=== PATIENT | female | born 1945 | race Caucasian/White ===

== ENCOUNTER → 2017-10-13 12:00 | Outpatient (CLI) | payer OTHER, SELFPAY ==
[2017-10-13 13:28] LABS: Vitamin D,25 Hydroxy 29.3 ng/mL (29.95-100.01)
[2017-10-13 13:34] LABS: Cholesterol 200 mg/dL (200); High Density Lipoprotein 49 mg/dL; Thyroid Stim Hormone (TSH) 0.06 uIU/mL (0.358-3.74); Triglycerides 118 mg/dL; Very Low Density Lipoprotein 24 mg/dL (5-40)
== END ==
PROVIDERS: Family Provider Family Medicine; PCP Family Medicine; Visit Provider Family Medicine
DX: E03.9 Hypothyroidism, unspecified (principal); E78.2 Mixed hyperlipidemia; E55.9 Vitamin D deficiency, unspecified
CPT/HCPCS: 36415; 80061; 82306; 84443

== ENCOUNTER 2017-10-16 12:30 | Outpatient (RCR) | payer OTHER, SELFPAY ==
--- NOTE | 2017-09-20 14:12 | HP.PTEVAL_ITS ---
Patient's Visit Information RADHA ROMANO is a 72 year old F referred to Physical Therapy by DO MIKE Lan with a diagnosis of DISLOCATION OF LEFT ACROMIOCLAVICLE JOINT. Date of Evaluation: 09/20/17 Physical Therapist: Rambo Frederick PT, - Visit Plan Frequency: 3x /Week Duration: 4 Weeks Plan: AVOID FLEXION ABOVE 90 DEGREES PRECATION AC. RTC /SCAPULAR STRENGTHENING ,POSTURAL EX'S ,MODALITIES - Subjective Subjective: This 72 y/o female presents to physical therapy with discloaction of left AC joint. Patient injuried left shoulder slipping on step hitting door jam. Attempted to work but caused pain then Monday ER at [facility] ,x-rays . Then seen DR Glynn recommended PT. Patient pain affects ADL'S ,self hygine and housework tasks above 90 degrees.Pain affects ablity to return to work and quality of life. Pain located lateral deltoid AC joint. Denies parathesia/ tingling. Patient has been able to sleep. VOCATION: [employer]. SOCIAL: - Pain Left Shoulder Pain Intensity (Out of 10): 5 Pain Intensity Range: 10 - Objective POSTURE: rounded shoulders head foward. PALAPTION: tender AC. NEURO: denies parathesai/tingling,reflexes C5-6-7. AROM: shoulder flexion 115 degrees pain, 130 degrees,ER 80 degrees pain,IR 50 degrees pain. PROM: shoulder flexion/abd 150 supine. SCAPULAR -HUMERAL FUNCTION : 1:1. MMT: RTC 4-/5 ,deltoid 3+/5 pain. FUNCTIONAL TEST: pain reaching behind back - Special Tests R Shoulder Drop Sign - IS Test: Negative R Shoulder Neer - Impingement: Positive R Shoulder Rowland Cody - Impingement: Positive R Shoulder AC Resisted - AC: Positive R Shoulder Shrug Sign - OA/Adhesive Capsulitis: Negative - Goals Goal 1:: Independant with HEP Goal Time Frame: 4-6 Weeks Goal 2:: Patient decrease pain left shoulder by 60% or greater to improve function Goal Time Frame: 4-6 Weeks Goal 3:: Patient increase AROM shoulder flexion /abd 150 degrees and ER 90 to improve function above 90 degrees for ADL'S and job demnads Goal Time Frame: 4-6 Weeks Goal 4:: Patient increase strength left shoulder 4/5 to improve function with ADL'S and return to job demands. Goal Time Frame: 4-6 Weeks Goal 5:: Patient be able to perform ADL'S ,housework tasks and RTW with min to no limitations Goal Time Frame: 4-6 Weeks - Rehabilitation Potential Physical Therapy Diagnosis: This patient has left shoulder AC joint dislocation with pain ,ROM loss ,strength thus impairs function and ADL'S and RTW thus benifit from skilled PT Rehabilitation Potential: Good - Anticipated Interventions Patient/Client Instruction: Educate patient on: Condition, Plan of Care For the Purpose of:: To decrease pain, To increase ROM, To improve muscle performance and motor function, To improve ability to perform ADL's, To increase tolerance to activity/condition/position, To improve performance and independence with ADL's, To improve ability of physical actions for home/ community/work/leisure, To improve health of tissue, To decrease soft tissue restriction, To increase flexibility/ROM, To assume or resume ADL's, To improve health and function, To improve ability to perform tasks related to life management Therapeutic Exercise to Include: Strength training, Postural training, Active ROM, Scapular Strength/Stabilization Comment: RTC For the Purpose of:: To decrease pain, To increase ROM, To improve muscle performance and motor function, To improve ability to perform ADL's, To increase tolerance to activity/condition/position, To improve performance and independence with ADL's, To improve ability of physical actions for home/ community/work/leisure, To improve health of tissue, To decrease soft tissue restriction, To improve ability to perform tasks related to life management IF ES: Yes Cryotherapy (ice pack, ice massage): Yes Thermo therapy (hot pack): Yes Ultrasound (thermal/non thermal): Yes For the Purpose of:: To decrease pain, To increase ROM, To improve nutrient delivery to tissue, To increase oxygenation perfusion, To improve health of tissue, To decrease soft tissue restriction Thank you for the opportunity to evaluate your patient. For Medicare and Medicare HMO plans, please review the plan of care and approve it. It will need to be FAXED BACK to us at [phone] for Medicare purposes. Please let me know if there are questions or concerns regarding this plan of care. Physician Signature: Date:
--- NOTE | 2017-10-19 11:29 | HP.PTDCSUM_ITS ---
HP - PT D/C Summary It has been my pleasure to treat RADHA ROMANO under orders from Chong Glynn DO, for the diagnosis of DISLOCATION OF LEFT ACROMIOCLAVICLE JOINT for a total of 13 visit(s). Discharge Date: Please see the following information for a summary of their discharge status. - Subjective Subjective: Patient doing ready to RTW. NO PAIN. ABLE TO DO ALL ADLS' ACTIVITIES - Pain Left Shoulder Pain Intensity (Out of 10): 0 - Overall Improvement % Improvement: 100 - Objective Objective/Function: POSTURE: mild foward posture. NEURO: denies parathesia/ tingling. AROM: flexion 160 ,abd 160,ER 90 ,IR 75. MMT: 4/5 RTC ,DELTOID 4-/ 5. FUNCTIONAL TEST : WNL - Goals Goal 1:: Independant with HEP Goal Progress: Goal Met Goal 2:: Patient decrease pain left shoulder by 60% or greater to improve function Goal Progress: Goal Met Goal 3:: Patient increase AROM shoulder flexion /abd 150 degrees and ER 90 to improve function above 90 degrees for ADL'S and job demnads Goal Progress: Goal Met Goal 4:: Patient increase strength left shoulder 4/5 to improve function with ADL'S and return to job demands. Goal Progress: Goal Met Goal 5:: Patient be able to perform ADL'S ,housework tasks and RTW with min to no limitations Goal Progress: Goal Met - Plan Plan: D/C MET GOALS. RTW - D/C Information If there are questions or concerns regarding this patient's physical therapy, please feel free to call me at [phone]. Thank you for the referral of this patient. Sincerely, Rambo Frederick, PT,
== END 2017-10-16 19:00 | disposition home or self-care (01) ==
LOC: PT 12:30
PROVIDERS: Family Provider Family Medicine; PCP Family Medicine; Visit Provider Orthopaedic Surgery
DX: S43.102D Unspecified dislocation of left acromioclavicular joint, subsequent encounter (principal)
CPT/HCPCS: 97014; 97035; 97110; 97162; G0283

== ENCOUNTER → 2018-01-08 14:26 | Outpatient (CLI) | payer OTHER, SELFPAY ==
--- NOTE | 2018-01-08 14:26 | DT_ITS ---
This patient was seen during an EMR downtime January 01, 2018 - January 08, 2018. This patient may have a combination of paper and electronic documentation or all paper documentation. All documentation is viewable within the e-chart portion of [employer] for each patient visit.
--- NOTE | 2018-01-08 14:54 | ECHOCS_ITS ---
Reason For Study: CHEST DISCOMFORT Procedure This was a 2D Doppler, Color Flow transthoracic echocardiogram. Contrast injection was performed. Exam performed in department. Left Ventricle Normal LV size. Left ventricular systolic function is normal. The estimated ejection fraction is 65 %. Transmitral and pulmonary venous doppler flow suggestive of impaired relaxation of left ventricle. No regional wall motion abnormalities noted. Right Ventricle Normal RV size. Normal systolic function. Atria Normal left atrium. Normal right atrium. Mitral Valve Normal mitral valve. Tricuspid Valve Normal tricuspid valve. Mild (1+) tricuspid valve insufficiency. Pulmonary artery systolic pressure is 34 mmHg. Aortic Valve Trisinus/trileaflet aortic valve. Pulmonic Valve Normal pulmonic valve. Great Vessels Normal aortic root. The pulmonary artery is normal size. Normal inferior vena cava. Pericardium/Pleural No pericardial effusion. Medication 22 gauge I.V. with prn adaptor inserted into left arm. Diluted definity 3ml given slow IV push to enhance endocardial definition. MMode/2D Measurements & Calculations LVIDd: 4.4 cm IVSd: 0.86 cm Ao root diam: 3.2 cm LVIDs: 3.2 cm LVPWd: 0.76 cm LA dimension: 4.9 cm RVDd: 3.7 cm FS: 27.7 % LAV(MOD-bp): 50.6 ml EDV(MOD-sp4): 77.6 ml EDV(MOD-sp2): 50.6 ml LAV(MOD-bp) Indexed: 23.5 ml/m2 ESV(MOD-sp4): 22.3 ml EF(MOD-sp2): 41.3 % LAV(MOD-sp2): 57.1 ml EF(MOD-sp4): 71.3 % LAV(MOD-sp4): 44.8 ml SV(MOD-sp4): 55.3 ml SV(MOD-sp2): 20.9 ml LA A4 area: 17.9 cm2 RA A4 area: 17.8 cm2 Doppler Measurements & Calculations MV E max ifeanyi: 68.3 cm/sec Lat Peak E' Ifeanyi: 10.6 cm/sec Med Peak E' Ifeanyi: 5.4 cm/sec E/E' lat: 6.4 E/E' med: 12.7 Ao V2 max: 155.1 cm/sec LV V1 max: 147.7 cm/sec TR max ifeanyi: 280.4 cm/sec Ao max P.6 mmHg LV V1 max P.7 mmHg TR max P.5 mmHg Interpretation Summary Normal LV size. Left ventricular systolic function is normal. The estimated ejection fraction is 65 %. Transmitral and pulmonary venous doppler flow suggestive of impaired relaxation of left ventricle Contrast injection was performed. Ordering Physician: KM Mott Referring Physician: FRANCIS BOTELLO Performed By: Sandra Deutsch RDCS, RVT
[2018-01-08 15:55] LABS: Anion Gap 7 (5-15); BUN 22 mg/dL (7-18); BUN/Creat Ratio 18.6 RATIO (10-20); Calcium,Total 8.6 mg/dL (8.5-10.1); Chloride 103 mmol/L (98-107); Creatinine, Serum 1.18 mg/dL (0.55-1.02); EST Glomerular Filtration Rate 48 mL/min (>60); Est Glom Filt Rate - Afr Amer 58 mL/min (>60); Glucose 102 mg/dL (74-106); Potassium 3.6 mmol/L (3.5-5.1); Sodium Level 143 mmol/L (136-145); Thyroid Stim Hormone (TSH) 0.15 uIU/mL (0.358-3.74)
== END ==
PROVIDERS: Family Provider Family Medicine; PCP Family Medicine; Visit Provider Nurse Practitioner Family
DX: R07.89 Other chest pain (principal); M79.89 Other specified soft tissue disorders; R06.09 Other forms of dyspnea; E03.9 Hypothyroidism, unspecified; R03.0 Elevated blood-pressure reading, without diagnosis of hypertension
CPT/HCPCS: 36415; 80048; 84443; 93306; Q9957; A4216; C8929

== ENCOUNTER → 2018-03-08 06:17 | Outpatient (CLI) | payer OTHER, SELFPAY ==
--- NOTE | 2018-03-08 06:19 | CDU_ITS ---
Reason For Study: Carotid bruit Rt. Velocities/BP Lt. Velocities/BP Prox CCA 66.3/17.6 cm/sec. Prox CCA 70.4/18.2 cm/sec. Mid CCA 67.4/16.4 cm/sec. Mid CCA 66.3/19.3 cm/sec. Dist CCA 61.6/15.2 cm/sec. Dist CCA 68.6/18.8 cm/sec. Prox ICA 57.5/17.6 cm/sec. Prox ICA 66.8/18.8 cm/sec. Mid ICA 77.4/24.0 cm/sec. Mid ICA 83.3/26.4 cm/sec. Dist ICA 106.0/28.1 cm/sec. Dist ICA 86.8/27.6 cm/sec. Rt. ICA/CCA = 1.6. Lt. ICA/CCA = 1.3. Prox ECA 68.0/11.7 cm/sec. Prox ECA 63.3/8.2 cm/sec. Rt. Vert. 45.7/14.7 cm/sec. Lt. Vert. 63.3/12.3 cm/sec. Right Extracranial There is intimal thickening but no significant atherosclerotic plaque noted in the right common carotid artery. There is heterogeneous, irregular atherosclerotic plaque noted in the right internal carotid artery. There is no significant atherosclerotic plaque noted in the right external carotid artery. Antegrade flow is noted in the right vertebral artery. Left Extracranial There is intimal thickening but no significant atherosclerotic plaque noted in the left common carotid artery. There is homogeneous, smooth atherosclerotic plaque noted in the left internal carotid artery. There is no significant atherosclerotic plaque noted in the left external carotid artery. Antegrade flow is noted in the left vertebral artery. Procedure Carotid Duplex 41457. Exam performed in department. Interpretation Summary Minimal plague at the proximal bilateral internal carotids with <50% stenosis. Normal flow bilateral external carotids Patent and antegrade bilateral vertebrals Ordering Physician: Robby Blanco Referring Physician: MD Dipti Jerel Performed By: Hyacinth Melgar RVT
--- NOTE | 2018-03-08 12:23 | STRESSREP ---
Stress Test Report Date: 03/08/2018 Procedure: Pharmacologic stress nuclear imaging study Indications: Shortness of breath/dyspnea Consent: Per the patient Procedure: The patient underwent pharmacologic (Regadenoson) evaluation with a peak heart rate of 97 beats per minute (65 predicted maximal heart rate) and a peak blood pressure of 138/78 mmHg. The baseline ECG demonstrated normal sinus rhythm. The peak pharmacologic ECG demonstrated no obvious ECG. There were no cardiac dysrhythmias pretest, during pharmacologic infusion, or recovery. There was no complaint of chest discomfort during pharmacologic infusion or recovery. The examination was discontinued secondary to completion of protocol. Impression: 1. Pharmacologic (Regadenoson) evaluation 2. Peak pharmacologic ECG with no obvious ECG changes. 3. There were no cardiac dysrhythmias pretest, during pharmacologic infusion, or recovery 4. Nuclear images pending Myocardial perfusion imaging study: Technique: The patient was injected with 15 millicuries of technetium 99m Cardiolite and subsequently rest SPECT Cardiolite nuclear imaging was obtained in the horizontal long, vertical long, and short axis views. The patient underwent pharmacologic (Regadenoson) evaluation with a peak heart rate of 97 beats per minute (65 % percent predicted maximal heart rate) and a peak blood pressure of 138/78 mmHg. The patient was injected with 45 millicuries of technetium 99m Cardiolite and subsequently stress SPECT Cardiolite nuclear imaging was obtained in the horizontal long, vertical long, and short axis views. A gated Cardiolite study at peak stress was obtained. Interpretation: Rest and stress SPECT Cardiolite nuclear imaging status post realignment, normalization, and attenuation correction demonstrate a small area of subtle diminished tracer uptake near the apical segment without significant change between rest and stress appearing compatible with physiologic apical thinning. There is end systolic thickening and brightening. The gated Cardiolite study demonstrates myocardial thickening and inward wall motion. The reported LVEF is 75 %. Impression: 1. And stress SPECT Cardiolite nuclear imaging demonstrate a small area of subtle decreased tracer uptake near the apical segments without significant change between rest and stress appearing compatible with physiologic apical thinning with no myocardial perfusion changes consider diagnostic for associated stress-induced myocardial ischemia or previous myocardial injury/infarction. 2. The gated Cardiolite study reports an LVEF of 75 %. This note was generated with [employer] software. It may contain incorrect words, spelling, and punctuation that were not noted in checking the note before signing.
--- NOTE | 2018-03-08 12:26 | STRESSREP_ITS ---
Stress Test Report Date: 03/08/2018 Procedure: Pharmacologic stress nuclear imaging study Indications: Shortness of breath/dyspnea Consent: Per the patient Procedure: The patient underwent pharmacologic (Regadenoson) evaluation with a peak heart rate of 97 beats per minute (65 predicted maximal heart rate) and a peak blood pressure of 138/78 mmHg. The baseline ECG demonstrated normal sinus rhythm. The peak pharmacologic ECG demonstrated no obvious ECG. There were no cardiac dysrhythmias pretest, during pharmacologic infusion, or recovery. There was no complaint of chest discomfort during pharmacologic infusion or recovery. The examination was discontinued secondary to completion of protocol. Impression: 1. Pharmacologic (Regadenoson) evaluation 2. Peak pharmacologic ECG with no obvious ECG changes. 3. There were no cardiac dysrhythmias pretest, during pharmacologic infusion, or recovery 4. Nuclear images pending Myocardial perfusion imaging study: Technique: The patient was injected with 15 millicuries of technetium 99m Cardiolite and subsequently rest SPECT Cardiolite nuclear imaging was obtained in the horizontal long, vertical long, and short axis views. The patient underwent pharmacologic (Regadenoson) evaluation with a peak heart rate of 97 beats per minute (65 % percent predicted maximal heart rate) and a peak blood pressure of 138/78 mmHg. The patient was injected with 45 millicuries of technetium 99m Cardiolite and subsequently stress SPECT Cardiolite nuclear imaging was obtained in the horizontal long, vertical long, and short axis views. A gated Cardiolite study at peak stress was obtained. Interpretation: Rest and stress SPECT Cardiolite nuclear imaging status post realignment, normalization, and attenuation correction demonstrate a small area of subtle diminished tracer uptake near the apical segment without significant change between rest and stress appearing compatible with physiologic apical thinning. There is end systolic thickening and brightening. The gated Cardiolite study demonstrates myocardial thickening and inward wall motion. The reported LVEF is 75 %. Impression: 1. And stress SPECT Cardiolite nuclear imaging demonstrate a small area of subtle decreased tracer uptake near the apical segments without significant change between rest and stress appearing compatible with physiologic apical thinning with no myocardial perfusion changes consider diagnostic for associated stress-induced myocardial ischemia or previous myocardial injury/ infarction. 2. The gated Cardiolite study reports an LVEF of 75 %. This note was generated with [employer] software. It may contain incorrect words, spelling, and punctuation that were not noted in checking the note before signing.
== END ==
PROVIDERS: Family Provider Family Medicine; PCP Family Medicine; Visit Provider Internal Medicine Cardiovascular Disease
DX: R06.02 Shortness of breath (principal); I10 Essential (primary) hypertension; R09.89 Other specified symptoms and signs involving the circulatory and respiratory systems; R94.31 Abnormal electrocardiogram [ECG] [EKG]
CPT/HCPCS: 78452; 93017; 93880; A9500; A4216; J2785

== ENCOUNTER → 2018-04-20 09:53 | Outpatient (CLI) | payer OTHER, SELFPAY ==
[2018-04-20 11:15] LABS: Anion Gap 7 (5-15); BUN 17 mg/dL (7-18); Calcium,Total 8.5 mg/dL (8.5-10.1); Chloride 105 mmol/L (98-107); Cholesterol 198 mg/dL (200); Creatinine, Serum 1.13 mg/dL (0.55-1.02); EST Glomerular Filtration Rate 50 mL/min (>60); Est Glom Filt Rate - Afr Amer 61 mL/min (>60); Glucose 92 mg/dL (74-106); High Density Lipoprotein 43 mg/dL; Potassium 4.1 mmol/L (3.5-5.1); Sodium Level 141 mmol/L (136-145); Thyroid Stim Hormone (TSH) 0.98 uIU/mL (0.358-3.74); Triglycerides 115 mg/dL; Very Low Density Lipoprotein 23 mg/dL (5-40)
== END ==
PROVIDERS: Family Provider Family Medicine; PCP Family Medicine; Visit Provider Family Medicine
DX: E03.9 Hypothyroidism, unspecified (principal); I10 Essential (primary) hypertension; Z79.899 Other long term (current) drug therapy
CPT/HCPCS: 36415; 80048; 80061; 84443

== ENCOUNTER → 2018-08-16 09:44 | Outpatient (CLI) | payer OTHER, SELFPAY ==
[2018-03-01 15:01] VITALS: BMI 40.2
[2018-08-16 10:57] LABS: Anion Gap 6 (5-15); BUN 21 mg/dL (7-18); BUN/Creat Ratio 21.3 RATIO (10-20); Calcium,Total 8.9 mg/dL (8.5-10.1); Chloride 105 mmol/L (98-107); Cholesterol 231 mg/dL (200); Creatinine, Serum 0.98 mg/dL (0.55-1.02); EST Glomerular Filtration Rate 59 mL/min (>60); Est Glom Filt Rate - Afr Amer 71 mL/min (>60); Glucose 94 mg/dL (74-106); High Density Lipoprotein 48 mg/dL; Potassium 4.2 mmol/L (3.5-5.1); Sodium Level 140 mmol/L (136-145); Triglycerides 129 mg/dL; Very Low Density Lipoprotein 26 mg/dL (5-40)
--- OUTSIDE RECORDS SUMMARY | 2018-10-20 23:30 | XMS RPT_ITS ---
:1945 Author Organization OHIP Support Name Relationship Address Phone ADE MORALES Unavailable Unavailable + [place] [address] EKTA ROMANO Unavailable [id number] + [facility] [place] [id number] [place] [address] [facility] Unavailable [address] + [place], [place] [id number] [place] [address] Unavailable Unavailable + [facility] [place] [id number] CAVAZOS Unavailable [address] + [place] [id number] [place] [address] OF EDUCATION Un[address] + [place], [place] [id number] [place] [address] Unavailable Unavailable + [place] [address] EKTA ROMANO Unavailable [address] + [place], [place] [id number] [place] [address] OF EDUCATION Un[address] + [place], [place] [id number] [place] [address] Unavailable Unavailable + [facility] [place] [address] EKTA ROMANO Unavailable [address] + [place], [place] [id number] [place] [address] OF EDUCATION Un[address] + [place], [place] [id number] [place] [address] Unavailable Unavailable + [facility] [place] [address]EKTA CAVAZOS Unavailable [address] + [place], [place] [id number] [place] [address] OF EDUCATION Un[address] + [place], [place] [id number] [place] [address] [address] + [place] [address] EKTA ROMANO Unavailable [address] + [place], [place] [id number] [place] [address] [address] + [place], [place] [id number] [place] [address] [address] + [place] [address] EKTA ROMANO Unavailable [address] + [place], [place] [id number] [place] [address] [address] + [address] Unavailable [address] + [place] [address] EKTA ROMANO Unavailable [address] + [place], [place] [id number] [place] [address] [address] + [address] Unavailable [address] + [place] [address] EKTA ROMANO Unavailable [address] + [place], [place] [id number] [place] [address] [address] + [address] Unavailable [address] + [place] [address] EKTA ROMANO Unavailable [address] + [place], [place] [id number] [place] [address] [address] + [address] Unavailable [address] + [place], [place] [address]EKTA CAVAZOS Unavailable [address] + [place], [place] [id number] [place] [address] [address] + [address] Unavailable [address] + [place] [address] EKTA ROMANO Unavailable [address] + [place], [place] [id number] [place] [address] [address] + [place], [place] [id number] [place] [address] + [place] [address] EKTA ROMANO Unavailable [address] + [place], [place] [id number] [place] [address] + [place], [place] [id number] [place] [address] + [place], [place] [address]EKTA CAVAZOS Unavailable [address] + [place], [place] [id number] [place] [address] [address] + [place], [place] [id number] [place] [address] + [place] [address] EKTA ROMANO Unavailable [address] + [place], [place] [id number] [place] [address] [address] + [place], [place] [id number] [place] [address] + [place], [place] [address]EKTA CAVAZOS Unavailable [address] + [place] [id number] [place] [address] [address] + [place], [place] [id number] [place] [address] + [place], [place] [address]EKTA CAVAZOS Unavailable [address] + [place] [id number] [place] [address] [address] + [place], [place] [address] [place] [address] + [place], [place] [address]EKTA CAVAZOS Unavailable [address] + [place] [address] [place] [address] ED[address] + [place] [id number] Care Team Providers Name Role Phone AYAN, FRANCIS Moore Attending Unavailable ELDERBROCK, FRANCIS Moore Referring Unavailable GLEN, XOCHITL (TRAVEL CLERK) Attending Unavailable GLEN, XOCHITL (TRAVEL CLERK) Referring Unavailable GLEN, XOCHITL (TRAVEL CLERK) Attending Unavailable GLEN, XOCHITL (TRAVEL CLERK) Referring Unavailable GLEN, XOCHITL (TRAVEL CLERK) Attending Unavailable GLEN, XOCHITL (TRAVEL CLERK) Referring Unavailable ELDERBROCK, FRANCIS D Attending Unavailable ELDERBROCK, FRANCIS Moore Referring Unavailable ELDERBROCK, FRANCIS Moore Attending Unavailable ELDERBROCK, FRANCIS D Referring Unavailable Elderbrock, Francis Attending Unavailable Elderbrock, Francis Referring Unavailable Elderbrock, Francis Primary Care Unavailable Renard, Chong Attending Unavailable Elderbrock, Francis Referring Unavailable Elderbrock, Francis Primary Care Unavailable Renard, Chong Attending Unavailable Elderbrock, Francis Primary Care Unavailable Renard, Chong Referring Unavailable Renard, Chong Attending Unavailable Elderbrock, Francis Referring Unavailable Elderbrock, Francis Primary Care Unavailable Renard, Chong Attending Unavailable Elderbrock, Francis Referring Unavailable Elderbrock, Francis Primary Care Unavailable Elderbrock, Francis Attending Unavailable Elderbrock, Francis Primary Care Unavailable Elderbrock, Francis Referring Unavailable Renard, Chong Attending Unavailable Elderbrock, Francis Referring Unavailable Elderbrock, Francis Primary Care Unavailable Glen, Xochitl Attending Unavailable Glen, Xochitl Referring Unavailable Elderbrock, Francis Primary Care Unavailable Glen, Xochitl Attending Unavailable Glen, Xochitl Referring Unavailable Elderbrock, Francis Primary Care Unavailable Glen, Xochitl Attending Unavailable Elderbrock, Francis Primary Care Unavailable Inder Estrada Attending Unavailable Glen, Xochitl Referring Unavailable Nighat Beckwith Attending Unavailable MoodispawRobby Attending Unavailable Elderbrock, Francis Referring Unavailable Elderbrock, Francis Primary Care Unavailable Moodispaw, Robby Attending Unavailable Moodispaw, Robby Referring Unavailable Elderbrock, Francis Primary Care Unavailable MoodispaRobby maxwell Attending Unavailable MoodispawRobby Referring Unavailable Elderbrock, Francis Attending Unavailable Elderbrock, Francis Primary Care Unavailable CebulCruzito Attending Unavailable Moodispaw, Robby Referring Unavailable Renard, Chong Attending Unavailable Elderbrock, Francis Referring Unavailable Elderbrock, Francis Primary Care Unavailable PROBLEMS PROBLEMS DATE TYPE CONDITION / CODE ATTENDING STATUS SOURCE 04/09/2018 Unknown R94.31 - Abnormal Moodispaw, Active Carlos electrocardiogram [facility] [ECG] [EKG] / Hospital R94.31(ICD-10) Repository 04/09/2018 Unknown R06.02 - Shortness of Moodispaw, Active Grant breath / [facility] R06.02(ICD-10) Hospital Repository 04/23/2018 Unknown R09.89 - Other Cruzito Corrales Active Carlos specified symptoms and Community signs involving the Hospital circulatory and Repository respiratory systems / R09.89(ICD-10) 03/01/2018 Unknown I10 - Essential Moodispaw, Active Grant (primary) hypertension [facility] / I10(ICD-10) Hospital Repository 03/01/2018 Unknown R60.9 - Edema, Moodispaw, Active Carlos unspecified / [facility] R60.9(ICD-10) Hospital Repository 02/14/2018 Unknown R07.89 - Other chest Natalie, Inder Active Carlos pain / R07.89(ICD-10) [facility] Hospital Repository 02/14/2018 Unknown R06.09 - Other forms Natalie, Inder Active Grant of dyspnea / Community R06.09(ICD-10) Hospital Repository 12/26/2017 Active Other chest pain / NA Active [place] R07.89(ICD-10) [facility] [place] Repository 10/20/2017 Unknown S43.102D - Unspecified Chong Glynn Active Carlos dislocation of left [facility] acromioclavicular Hospital joint, subsequent Repository encounter / S43.102D(ICD-10) 09/28/2017 Unknown S43.102A - Unspecified Chong Glynn Active Carlos dislocation of left [facility] acromioclavicular Hospital joint, initial Repository encounter / S43.102A(ICD-10) PROCEDURES PROCEDURES No Procedure Records FoundRESULTS RESULTS PROGRESS Observed: 08/21/2018 Status: COMPLETED Source: [place] 1:20 PM [facility] REPOSITORY HNO ID: [id number] Author: Francis Botello Service: (none) Author Type: Physician Type: Progress Notes Filed: 08/21/2018 5:15 PM Note Text: Chief Complaint Patient presents with: Medication Follow-up HPI Radha Romano is a 73 year old female who presents here today for medication follow up. 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 HTN: is taking HCTZ 25 mg daily. Denies any chest pains, dizziness, or SOB. Has been losing weight. Does check BP outside the office. Follows with Dr. Blanco, Communications Clerk. Thyroid: is taking Synthroid 100 mcg daily. Lipid: does not take cholesterol medication at this time. Tries to watch diet, has lost some weight. Stays busy with chores. Walks the gym at the school after hours. Check cholesterol labs once a year. Has noticed that she is losing her balance some while walking, took a fall a year ago. Knee: right; pain to the inner side of the knee, has been busy with walking. Does use heat. Past medical history, appointments, medications, allergies reviewed. Previous Medical History PAST MEDICAL HISTORY Diagnosis Date - Benign neoplasm of colon - Internal hemorrhoids without mention of complication - Personal history of colonic polyps - Personal history of malignant neoplasm of rectum, rectosigmoid junction, and anus - Unspecified hypothyroidism Previous Surgical History PAST SURGICAL HISTORY Procedure Laterality Date - CLOSE ENTEROSTOMY 12/05/08 - COLONOS W/REM POLYP SNARE 06/30/08 - COLONOSCOP W/ OR W/O [facility] SPEC 04-04-14 - COLONOSCOPY W/BX 01/15/10 Ileocecal mass - COLONOSCOPY W/BX 03/18/11 repeat in - HEMORRHOIDECTOMY,INT/EXT,COMPLX 02-22-13 - LAP CHOLECYSTECT/CHOLANGIOGRAPHY 02-08-10 - LAP COLECTMY W COLOPROC/COLOST 08/05/08 - LAP COLECTMY W/ILEUM/ILEOCOL 02-08-10 right colon - LAP VENT/ABD YURIY PROC COMP 06-17-13 - REVISION OF ILEOSTOMY,COMPLICATED 08-18-08 - SIGMOIDOSCOPY FLEX DIAG 11/28/08 Patent colorectal anastomosis - THYROID LEFT FINE NEEDLE ASPIRATION 10/08/08 Bilateral thyroid nodules aspirated - THYROID RIGHT FINE NEEDLE ASPIRATION 10/08/08 - THYROIDECTOMY 06-23-09 - VAGINAL HYSTERECTOMY Hysterectomy, vaginal Family History FAMILY HISTORY Problem Relation Age of Onset - Heart Mother SC at age 66; CABG x 6 - Heart Sister SC at age 63 - Cancer Sister mouth - Heart Brother arrythmia; implanted debrillator - Hypertension Mother - Hypertension Maternal Grandmother - Hypertension Maternal Aunt - Hypertension Maternal Aunt Patient Allergies ALLERGIES Allergen Reactions - Penicillins Hives - Demerol [Meperidine* mental status change Current Medications Current Outpatient Prescriptions on File Prior to Visit: levothyroxine (SYNTHROID) 100 mcg tablet Take 1 tablet by mouth once daily. Take on empty stomach. For thyroid. fluticasone (FLONASE) 50 mcg/actuation nasal spray Use 2 Sprays in each nostril once daily. hydroCHLOROthiazide (HYDRODIURIL, ESIDRIX) 25 mg tablet Take 1 tablet by mouth once daily. Cholecalciferol, Vitamin D3, 5,000 unit cap Take 1 capsule by mouth once daily. No current facility-administered medications on file prior to visit. Social History Social History Marital status: Spouse name: Ekta Years of education: Number of children: 2 Occupational History Occupation Employer Comment [employer]* Social History Main Topics Smoking status: Never Smoker Smokeless tobacco: Never Used Alcohol use: No Drug use: No EXAM: BP 130/78 Pulse 68 Resp 16 Wt 107.8 kg (237 lb 9.6 oz) BMI 37.21 kg/m? General Appearance: Well appearing, alert, in no acute distress, well-hydrated, well nourished. and Obese. Lungs: lungs clear to auscultation. No wheezing, rhonchi, rales. Heart: RRR without murmur, gallop, or rubs. No ectopy. Extremities: right knee, arthritis of inside joint. Health Maintenance List BP CONTROLLED (<130/80) due on 1962 DTAP,TDAP,TD(1 - Tdap) due on 1963 MAMMOGRAM due on 10/18/2018 ANNUAL PCP TEAM CHRONIC DISEASE VISIT due on 04/23/2019 COLORECTAL CANCER SCREENING,SEE MODIFIER due on 07/11/2020 DIABETES SCREEN due on 04/20/2021 LIPID SCREEN due on 10/13/2022 BONE DENSITY Completed ADULT PREVNAR-13 Completed INFLUENZA Completed PNEUMOVAX AGE 65 AND OVER WITH 5YR LOOKBACK Completed Data reviewed none ASSESSMENT/PLAN: 1. Hypothyroidism, unspecified type - ICD9: 244.9, ICD10: E03.9 (primary diagnosis) - Instructed patient on importance of taking on an empty stomach either first thing in the morning or at bedtime. Continue current medications. Check TSH in 6 months 2. Mixed hyperlipidemia - ICD9: 272.2, ICD10: E78.2 - suboptimal control - Continue current medication. - Encouraged following a low fat, low cholesterol diet. - Discussed the benefits of regular aerobic exercise and weight loss. 3. Hypertension, essential - ICD9: 401.9, ICD10: I10 - good control - Continue current medication(s) - Recommended regular aerobic exercise. - Recommend home blood pressure monitoring, to bring results in on next visit - Goal of BP <140/90 Follow up in 6 months with thyroid labs prior. I agree with the Chief Complaint, ROS, and Past Histories independently gathered by the clinical ict customer support officer and the remaining scribed note accurately describes my personal service to the patient. Francis Botello MD The documentation for this note was completed by Carina Hugo Ma acting as scribe for Francis Botello MD. August 21, 2018 1:20 PM. CNOV Observed: 08/21/2018 Status: COMPLETED Source: [place] 1:20 PM [facility] REPOSITORY [facility] RADHA [facility] ([id number]) 1945 F Date Time Provider Department 08/21/18 1:20 PM FRANCIS BOTELLO During your visit today, we recorded the following information about you: Pulse Respiration Blood pressure Weight 68/minute 16/minute 130/78 107.8 kg Francis Botello MD 08/21/2018 5:15 PM Signed Chief Complaint Patient presents with: Medication Follow-up HPI Radha Romano is a 73 year old female who presents here today for medication follow up. 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 HTN: is taking HCTZ 25 mg daily. Denies any chest pains, dizziness, or SOB. Has been losing weight. Does check BP outside the office. Follows with Dr. Blanco, Communications Clerk. Thyroid: is taking Synthroid 100 mcg daily. Lipid: does not take cholesterol medication at this time. Tries to watch diet, has lost some weight. Stays busy with chores. Walks the gym at the school after hours. Check cholesterol labs once a year. Has noticed that she is losing her balance some while walking, took a fall a year ago. Knee: right; pain to the inner side of the knee, has been busy with walking. Does use heat. Past medical history, appointments, medications, allergies reviewed. Previous Medical History PAST MEDICAL HISTORY Diagnosis Date - Benign neoplasm of colon - Internal hemorrhoids without mention of complication - Personal history of colonic polyps - Personal history of malignant neoplasm of rectum, rectosigmoid junction, and anus - Unspecified hypothyroidism Previous Surgical History PAST SURGICAL HISTORY Procedure Laterality Date - CLOSE ENTEROSTOMY 12/05/08 - COLONOS W/REM POLYP SNARE 06/30/08 - COLONOSCOP W/ OR W/O [facility] SPEC 04-04-14 - COLONOSCOPY W/BX 01/15/10 Ileocecal mass - COLONOSCOPY W/BX 03/18/11 repeat in - HEMORRHOIDECTOMY,INT/EXT,COMPLX 02-22-13 - LAP CHOLECYSTECT/CHOLANGIOGRAPHY 02-08-10 - LAP COLECTMY W COLOPROC/COLOST 08/05/08 - LAP COLECTMY W/ILEUM/ILEOCOL 02-08-10 right colon - LAP VENT/ABD YURIY PROC COMP 06-17-13 - REVISION OF ILEOSTOMY,COMPLICATED 08-18-08 - SIGMOIDOSCOPY FLEX DIAG 11/28/08 Patent colorectal anastomosis - THYROID LEFT FINE NEEDLE ASPIRATION 10/08/08 Bilateral thyroid nodules aspirated - THYROID RIGHT FINE NEEDLE ASPIRATION 10/08/08 - THYROIDECTOMY 06-23-09 - VAGINAL HYSTERECTOMY Hysterectomy, vaginal Family History FAMILY HISTORY Problem Relation Age of Onset - Heart Mother SC at age 66; CABG x 6 - Heart Sister SC at age 63 - Cancer Sister mouth - Heart Brother arrythmia; implanted debrillator - Hypertension Mother - Hypertension Maternal Grandmother - Hypertension Maternal Aunt - Hypertension Maternal Aunt Patient Allergies ALLERGIES Allergen Reactions - Penicillins Hives - Demerol [Meperidine* mental status change Current Medications Current Outpatient Prescriptions on File Prior to Visit: levothyroxine (SYNTHROID) 100 mcg tablet Take 1 tablet by mouth once daily. Take on empty stomach. For thyroid. fluticasone (FLONASE) 50 mcg/actuation nasal spray Use 2 Sprays in each nostril once daily. hydroCHLOROthiazide (HYDRODIURIL, ESIDRIX) 25 mg tablet Take 1 tablet by mouth once daily. Cholecalciferol, Vitamin D3, 5,000 unit cap Take 1 capsule by mouth once daily. No current facility-administered medications on file prior to visit. Social History Social History Marital status: Spouse name: Ekta Years of education: Number of children: 2 Occupational History Occupation Employer Comment [employer]* Social History Main Topics Smoking status: Never Smoker Smokeless tobacco: Never Used Alcohol use: No Drug use: No EXAM: BP 130/78 Pulse 68 Resp 16 Wt 107.8 kg (237 lb 9.6 oz) BMI 37.21 kg/m? General Appearance: Well appearing, alert, in no acute distress, well-hydrated, well nourished. and Obese. Lungs: lungs clear to auscultation. No wheezing, rhonchi, rales. Heart: RRR without murmur, gallop, or rubs. No ectopy. Extremities: right knee, arthritis of inside joint. Health Maintenance List BP CONTROLLED (<130/80) due on 1962 DTAP,TDAP,TD(1 - Tdap) due on 1963 MAMMOGRAM due on 10/18/2018 ANNUAL PCP TEAM CHRONIC DISEASE VISIT due on 04/23/2019 COLORECTAL CANCER SCREENING,SEE MODIFIER due on 07/11/2020 DIABETES SCREEN due on 04/20/2021 LIPID SCREEN due on 10/13/2022 BONE DENSITY Completed ADULT PREVNAR-13 Completed INFLUENZA Completed PNEUMOVAX AGE 65 AND OVER WITH 5YR LOOKBACK Completed Data reviewed none ASSESSMENT/PLAN: 1. Hypothyroidism, unspecified type - ICD9: 244.9, ICD10: E03.9 (primary diagnosis) - Instructed patient on importance of taking on an empty stomach either first thing in the morning or at bedtime. Continue current medications. Check TSH in 6 months 2. Mixed hyperlipidemia - ICD9: 272.2, ICD10: E78.2 - suboptimal control - Continue current medication. - Encouraged following a low fat, low cholesterol diet. - Discussed the benefits of regular aerobic exercise and weight loss. 3. Hypertension, essential - ICD9: 401.9, ICD10: I10 - good control - Continue current medication(s) - Recommended regular aerobic exercise. - Recommend home blood pressure monitoring, to bring results in on next visit - Goal of BP <140/90 Follow up in 6 months with thyroid labs prior. I agree with the Chief Complaint, ROS, and Past Histories independently gathered by the clinical ict customer support officer and the remaining scribed note accurately describes my personal service to the patient. Francis Botello MD The documentation for this note was completed by Carina Hugo Ma acting as scribe for Francis Botello MD. August 21, 2018 1:20 PM. Referring Provider: FRANCIS BOTELLO [[id number]] Allergies As of Date: 08/21/2018 Noted Allergy Reaction PENICILLINS 05/08/2008 4 - Hives DEMEROL (MEPERIDINE (PF)) 12/10/2008 Comments: mental status change Date Reviewed: 08/21/2018 Reviewed by: Carina Hugo Ma - Fully Assessed Reason for Visit: Medication Follow-up [270] Primary Visit Diagnosis:Hypothyroidism, unspecified type [E03.9] Other Visit Diagnoses:Mixed hyperlipidemia [E78.2] Hypertension, essential [I10] Order(s):TSH BLD [SQTSH] Order #: [id number] FUTURE Prescriptions as of 08/21/2018 Sig: LEVOTHYROXINE 100 MCG TABLET Take 1 tablet by mouth once d* FLUTICASONE 50 MCG/ACTUATION * Use 2 Sprays in each nostril * HYDROCHLOROTHIAZIDE 25 MG TAB* Take 1 tablet by mouth once d* CHOLECALCIFEROL (VITAMIN D3) * Take 1 capsule by mouth once * Problem List As Of Date 08/21/2018 Noted Resolved RECTAL AND ANAL HEMORRHAGE [K62.5] COLONIC CANCER SIGMOID [C18.7] INVALID FOR* FIT/ADJUST INTEST APPLIANCE NOS [V53.5] INVALID FOR* GOITER MULTINODULAR, NONTOXIC [E04.2] INVALID FOR* Gallstones [K80.20] INVALID FOR* Hypothyroidism [E03.9] INVALID FOR* Personal History of Colon Cancer [Z85.038] INVALID FOR* Colon Polyp [K63.5] INVALID FOR* Vitamin D deficiency [E55.9] INVALID FOR* Abdominal pain, unspecified site [R10.9] INVALID FOR*03/17/2016 Incisional hernia [K43.2] INVALID FOR* Unspecified hemorrhoids without mention of comp*INVALID FOR* Mixed hyperlipidemia [E78.2] INVALID FOR* Hypertension, essential [I10] INVALID FOR* Disposition: Return in about 6 months (around 02/18/2019). Follow-up and Disposition History Recorded Encounter Status:Closed by FRANCIS BOTELLO MD on 08/21/18 BASIC METABOLIC Collected: 08/16/2018 Status: F Source: [place] PROFILE (BMP) 9:52 AM [facility] REPOSITORY TYPE CODE TESTS RESULT OUT OF RANGE REFERENCE UNITS LAB L501.0100 74-106 mg/dL Normal GLU 94 Result Comment: Please note revised GLUCOSE reference range effective 2017. LAB L501.1000 7-18 mg/dL High BUN 21 LAB L501.1100 0.55-1.02 mg/dL Normal CREAT,SERUM 0.98 Result Comment: The validity of the calculated GFR AND GFRAA in patients over 70 years has not been determined. Clinical correlation is essential. LAB L501.1110 >60 mL/min Low EST GFR 59 Result Comment: Non- GFR Calc LAB L501.1115 >60 mL/min Normal EST GFR - AA 71 Result Comment: GFR Calc LAB L501.1300 10-20 RATIO High BUN/CRE 21.3 LAB L501.2200 8.5-10.1 mg/dL CA Normal 8.9 LAB L501.5300 136-145 mmol/L NA Normal 140 LAB L501.5600 3.5-5.1 mmol/L K Normal 4.2 LAB L501.5900 98-107 mmol/L CL Normal 105 LAB L501.6100 21.0-32.0 mmol/L Normal CO2 29.0 LAB L501.6200 5-15 Normal GAP 6 Performed By: #### L500.2500, L500.4100 #### [facility] [address] [place] [place], [address] LIPID PROFILE Collected: 08/16/2018 Status: F Source: [place] 9:52 AM [facility] REPOSITORY TYPE CODE TESTS RESULT OUT OF RANGE REFERENCE UNITS LAB L501.4900 200 mg/dL High CHOL 231 Result Comment: <200 mg/dL Desirable 200-240 mg/dL Borderline >240 mg/dL High Risk LAB L501.5000 mg/dL Normal TRIG 129 Result Comment: The drugs N-Acetylcysteine and Metamizole may falsely depress this assay. Serum Triglycerides Reference Interval Normal <150 mg/dL Borderline high 150 - 199 mg/dL High 200 - 499 mg/dL Very High > or = 500 mg/dL LAB L501.6400 mg/dL Normal HDL 48 Result Comment: The drugs N-Acetylcysteine and Metamizole may falsely depress this assay. Reference Range HDL <40 mg/dL Low HDL Cholesterol HDL >or= 60 mg/dL High HDL Cholesterol LAB L501.6500 0-130 mg/dL High LDL 157 LAB L501.6600 5-40 mg/dL Normal VLDL 26 Performed By: #### L500.2500, L500.4100 #### [facility] [address] [place], [address] CNOV Observed: 04/23/2018 Status: COMPLETED Source: [place] 9:40 AM [facility] REPOSITORY [facility] RADHA ROMANO ([id number]) 1945 F Date Time Provider Department 04/23/18 9:40 AM FRANCIS BOTELLO [facility] During your visit today, we recorded the following information about you: Pulse Respiration Blood pressure Weight 56/minute 16/minute 144/86 109 kg Francis Botello MD 04/23/2018 10:04 AM Signed Chief Complaint Patient presents with: F/U 6 Month: Thyroid and Vit D HPI Radha Romano is a 72 year old female who presents here today for a 6 mo f/u. Pt here today for a 6 mo f/u. Had labs completed which were not fasting. Sinuses - Would like another Rx for nasal spray due to her sinuses. HTN - Checks BP couple times a week. BP average's around 154/82. Denies any chest pain,sob or dizziness. Doesn't like taking pills and when she takes it she feels bad and doesn't like feeling that way. Has d/c Losartan 100 mg once daily and takes HCTZ 25 mg 1 tab po prn for bilateral leg edema. Lipids - With needing to change diet, they are starting to work on it. Eliminating potatoes, doesn't use salt in her diet. Eating more fruits, vegetables and salads. Admits to liking sugars, which is her downfall. Will be starting to walk once her friend recovers from surgery. Still active and working. States that when she had labs done she was not fasting. Doesn't want to be on medication Lipitor. Thyroid - Admits to getting tired easily, but overall doing well. Currently taking Levothyroxine [address] Blanco suggested cholesterol medication due to carotid stenosis bilateral <50%. Past medical history, appointments, medications, allergies reviewed. Previous Medical History PAST MEDICAL HISTORY Diagnosis Date - Benign neoplasm of colon - Internal hemorrhoids without mention of complication - Personal history of colonic polyps - Personal history of malignant neoplasm of rectum, rectosigmoid junction, and anus - Unspecified hypothyroidism Previous Surgical History PAST SURGICAL HISTORY Procedure Laterality Date - CLOSE ENTEROSTOMY 12/05/08 - COLONOS W/REM POLYP SNARE 06/30/08 - COLONOSCOP W/ OR W/O [facility] SPEC 04-04-14 - COLONOSCOPY W/BX 01/15/10 Ileocecal mass - COLONOSCOPY W/BX 03/18/11 repeat in - HEMORRHOIDECTOMY,INT/EXT,COMPLX 02-22-13 - LAP CHOLECYSTECT/CHOLANGIOGRAPHY 02-08-10 - LAP COLECTMY W COLOPROC/COLOST 08/05/08 - LAP COLECTMY W/ILEUM/ILEOCOL 02-08-10 right colon - LAP VENT/ABD YURIY PROC COMP 06-17-13 - REVISION OF ILEOSTOMY,COMPLICATED 08-18-08 - SIGMOIDOSCOPY FLEX DIAG 11/28/08 Patent colorectal anastomosis - THYROID LEFT FINE NEEDLE ASPIRATION 10/08/08 Bilateral thyroid nodules aspirated - THYROID RIGHT FINE NEEDLE ASPIRATION 10/08/08 - THYROIDECTOMY 06-23-09 - VAGINAL HYSTERECTOMY Hysterectomy, vaginal Family History FAMILY HISTORY Problem Relation Age of Onset - Heart Mother SC at age 66; CABG x 6 - Heart Sister SC at age 63 - Cancer Sister mouth - Heart Brother arrythmia; implanted debrillator - Hypertension Mother - Hypertension Maternal Grandmother - Hypertension Maternal Aunt - Hypertension Maternal Aunt Patient Allergies ALLERGIES Allergen Reactions - Penicillins Hives - Demerol [Meperidine* mental status change Current Medications Current Outpatient Prescriptions on File Prior to Visit: levothyroxine (SYNTHROID) 100 mcg tablet Take 1 tablet by mouth once daily. Take on empty stomach. For thyroid. Cholecalciferol, Vitamin D3, 5,000 unit cap Take 1 capsule by mouth once daily. losartan (COZAAR) 100 mg tablet Take 1 tablet by mouth once daily. hydroCHLOROthiazide (HYDRODIURIL, ESIDRIX) 25 mg tablet Take 1 tablet by mouth once daily. No current facility-administered medications on file prior to visit. Social History Social History Marital status: Spouse name: Ekta Years of education: Number of children: 2 Occupational History Occupation Employer Comment [employer]* Social History Main Topics Smoking status: Never Smoker Smokeless tobacco: Never Used Alcohol use: No Drug use: No EXAM: BP 144/86 (BP Site: Left Arm, BP Position: Sitting, BP Cuff Size: Large Adult) Pulse (!) 56 Resp 16 Wt 109 kg (240 lb 6.4 oz) BMI 37.65 kg/m? General Appearance: Well appearing, alert, in no acute distress, well-hydrated, well nourished. and Overweight. Neck: Supple, no adenopathy; thyroid symmetric, normal size, no bruits. Lungs: Lungs clear to auscultation. No wheezing, rhonchi, rales. Heart: RRR without murmur, gallop, or rubs. No ectopy. Health Maintenance List BP CONTROLLED (<130/80) due on 1962 DTAP,TDAP,TD(1 - Tdap) due on 1963 INFLUENZA(1) due on 03/31/2018 - declines MAMMOGRAM due on 10/18/2018 ANNUAL PCP TEAM CHRONIC DISEASE VISIT due on 02/07/2019 COLORECTAL CANCER SCREENING,SEE MODIFIER due on 07/11/2020 DIABETES SCREEN due on 04/20/2021 LIPID SCREEN due on 10/13/2022 BONE DENSITY Completed ADULT PREVNAR-13 Completed PNEUMOVAX AGE 65 AND OVER WITH 5YR LOOKBACK Completed Data reviewed External labs ASSESSMENT/PLAN: 1. Hypothyroidism, unspecified type - ICD9: 244.9, ICD10: E03.9 (primary diagnosis) - Instructed patient on importance of taking on an empty stomach either first thing in the morning or at bedtime. - Continue current medication regimen. - LEVOTHYROXINE 100 MCG TABLET 2. Hypertension, unspecified - D/C Losartan; take HCTZ 25 mg daily. 3. Vitamin D deficiency - ICD9: 268.9, ICD10: E55.9 - Continue current medication regimen. 4. Mixed hyperlipidemia - ICD9: 272.2, ICD10: E78.2 - good control - Continue lifestyle as discussed - Encouraged following a low carbohydrate, healthy oil intake diet. 5. Acute frontal sinusitis, recurrence not specified - ICD9: 461.1, ICD10: J01.10 - Nasal Elma given today Follow up in 3 months with BMP prior I agree with the Chief Complaint, ROS, and Past Histories independently gathered by the clinical ict customer support officer and the remaining scribed note accurately describes my personal service to the patient. Francis Botello MD The documentation for this note was completed by Samia Llamas Ma acting as scribe for Francis Botello MD. April 23, 2018 9:35 AM. Referring Provider: FRANCIS BOTELLO [[id number]] Allergies As of Date: 04/23/2018 Noted Allergy Reaction PENICILLINS 05/08/2008 4 - Hives DEMEROL (MEPERIDINE (PF)) 12/10/2008 Comments: mental status change Date Reviewed: 04/23/2018 Reviewed by: Samia Llamas Ma - Fully Assessed Reason for Visit: F/U 6 Month [444] Cmt: Thyroid and Vit D Primary Visit Diagnosis:Hypothyroidism, unspecified type [E03.9] Other Visit Diagnoses:Hypertension, unspecified type [I10] Vitamin D deficiency [E55.9] Mixed hyperlipidemia [E78.2] Acute frontal sinusitis, recurrence not specified [J01.10] Order(s):LDL CHOLESTEROL DIR [SQLDLDCT] Order #: [id number] levothyroxine (SYNTHROID) 100 mcg tabletTake 1 tablet by mouth once daily. Take on empty stomach. For thyroid.Disp: 30 tabletRfl: 3 fluticasone (FLONASE) 50 mcg/actuation nasal sprayUse 2 Sprays in each nostril once daily.Disp: 1 BottleRfl: 5 BASIC METABOLIC PNL [SQBMP] Order #: [id number] FUTURE Prescriptions as of 04/23/2018 Sig: LEVOTHYROXINE 100 MCG TABLET Take 1 tablet by mouth once d* CHOLECALCIFEROL (VITAMIN D3) * Take 1 capsule by mouth once * FLUTICASONE 50 MCG/ACTUATION * Use 2 Sprays in each nostril * HYDROCHLOROTHIAZIDE 25 MG TAB* Take 1 tablet by mouth once d* Problem List As Of Date 04/23/2018 Noted Resolved RECTAL AND ANAL HEMORRHAGE [K62.5] COLONIC CANCER SIGMOID [C18.7] INVALID FOR* FIT/ADJUST INTEST APPLIANCE NOS [V53.5] INVALID FOR* GOITER MULTINODULAR, NONTOXIC [E04.2] INVALID FOR* Gallstones [K80.20] INVALID FOR* Hypothyroidism [E03.9] INVALID FOR* Personal History of Colon Cancer [Z85.038] INVALID FOR* Colon Polyp [K63.5] INVALID FOR* Vitamin D deficiency [E55.9] INVALID FOR* Abdominal pain, unspecified site [R10.9] INVALID FOR*03/17/2016 Incisional hernia [K43.2] INVALID FOR* Unspecified hemorrhoids without mention of comp*INVALID FOR* Mixed hyperlipidemia [E78.2] INVALID FOR* Prescriptions ordered this encounter Disp Refills Start End LEVOTHYROXINE 100 MCG TABLET 30 t* 3 04/23/2018 Route: ORAL Sig: Take 1 tablet by mouth once daily. Take on empty stomach. For thyroid. FLUTICASONE 50 MCG/ACTUATION NASAL S* 1 Rylan* 5 04/23/2018 Route: EACH NOSTRIL Sig: Use 2 Sprays in each nostril once daily. Medications Discontinued During This Encounter losartan (COZAAR) 100 mg tablet 30 t* 2 02/07/2018 04/23/2018 Route: ORAL Sig: Take 1 tablet by mouth once daily. Disc: Changing Therapy/Dosage Form levothyroxine (SYNTHROID) 100 mcg ta* 30 t* 3 01/10/2018 04/23/2018 Route: ORAL Sig: Take 1 tablet by mouth once daily. Take on empty stomach. For thyroid. Disc: Reason for discontinue is not on file. Disposition: Return in about 3 months (around 07/23/2018). Follow-up and Disposition History Recorded Encounter Status:Closed by FRANCIS BOTELLO MD on 04/23/18 PROGRESS Observed: 04/23/2018 Status: COMPLETED Source: [place] 9:35 AM [facility] [place] REPOSITORY HNO ID: [id number] Author: Francis Botello Service: (none) Author Type: Physician Type: Progress Notes Filed: 04/23/2018 10:04 AM Note Text: Chief Complaint Patient presents with: F/U 6 Month: Thyroid and Vit D HPI Radha Romano is a 72 year old female who presents here today for a 6 mo f/u. Pt here today for a 6 mo f/u. Had labs completed which were not fasting. Sinuses - Would like another Rx for nasal spray due to her sinuses. HTN - Checks BP couple times a week. BP average's around 154/82. Denies any chest pain,sob or dizziness. Doesn't like taking pills and when she takes it she feels bad and doesn't like feeling that way. Has d/c Losartan 100 mg once daily and takes HCTZ 25 mg 1 tab po prn for bilateral leg edema. Lipids - With needing to change diet, they are starting to work on it. Eliminating potatoes, doesn't use salt in her diet. Eating more fruits, vegetables and salads. Admits to liking sugars, which is her downfall. Will be starting to walk once her friend recovers from surgery. Still active and working. States that when she had labs done she was not fasting. Doesn't want to be on medication Lipitor. Thyroid - Admits to getting tired easily, but overall doing well. Currently taking Levothyroxine [address] Blanco suggested cholesterol medication due to carotid stenosis bilateral <50%. Past medical history, appointments, medications, allergies reviewed. Previous Medical History PAST MEDICAL HISTORY Diagnosis Date - Benign neoplasm of colon - Internal hemorrhoids without mention of complication - Personal history of colonic polyps - Personal history of malignant neoplasm of rectum, rectosigmoid junction, and anus - Unspecified hypothyroidism Previous Surgical History PAST SURGICAL HISTORY Procedure Laterality Date - CLOSE ENTEROSTOMY 12/05/08 - COLONOS W/REM POLYP SNARE 06/30/08 - COLONOSCOP W/ OR W/O [facility] SPEC 9-12-11 - COLONOSCOPY W/BX 01/15/10 Ileocecal mass - COLONOSCOPY W/BX 03/18/11 repeat in - HEMORRHOIDECTOMY,INT/EXT,COMPLX 02-22-13 - LAP CHOLECYSTECT/CHOLANGIOGRAPHY 02-08-10 - LAP COLECTMY W COLOPROC/COLOST 08/05/08 - LAP COLECTMY W/ILEUM/ILEOCOL 02-08-10 right colon - LAP VENT/ABD YURIY PROC COMP 06-17-13 - REVISION OF ILEOSTOMY,COMPLICATED 08-18-08 - SIGMOIDOSCOPY FLEX DIAG 11/28/08 Patent colorectal anastomosis - THYROID LEFT FINE NEEDLE ASPIRATION 10/08/08 Bilateral thyroid nodules aspirated - THYROID RIGHT FINE NEEDLE ASPIRATION 10/08/08 - THYROIDECTOMY 06-23-09 - VAGINAL HYSTERECTOMY Hysterectomy, vaginal Family History FAMILY HISTORY Problem Relation Age of Onset - Heart Mother SC at age 66; CABG x 6 - Heart Sister SC at age 63 - Cancer Sister mouth - Heart Brother arrythmia; implanted debrillator - Hypertension Mother - Hypertension Maternal Grandmother - Hypertension Maternal Aunt - Hypertension Maternal Aunt Patient Allergies ALLERGIES Allergen Reactions - Penicillins Hives - Demerol [Meperidine* mental status change Current Medications Current Outpatient Prescriptions on File Prior to Visit: levothyroxine (SYNTHROID) 100 mcg tablet Take 1 tablet by mouth once daily. Take on empty stomach. For thyroid. Cholecalciferol, Vitamin D3, 5,000 unit cap Take 1 capsule by mouth once daily. losartan (COZAAR) 100 mg tablet Take 1 tablet by mouth once daily. hydroCHLOROthiazide (HYDRODIURIL, ESIDRIX) 25 mg tablet Take 1 tablet by mouth once daily. No current facility-administered medications on file prior to visit. Social History Social History Marital status: Spouse name: Ekta Years of education: Number of children: 2 Occupational History Occupation Employer Comment [employer]* Social History Main Topics Smoking status: Never Smoker Smokeless tobacco: Never Used Alcohol use: No Drug use: No EXAM: BP 144/86 (BP Site: Left Arm, BP Position: Sitting, BP Cuff Size: Large Adult) Pulse (!) 56 Resp 16 Wt 109 kg (240 lb 6.4 oz) BMI 37.65 kg/m? General Appearance: Well appearing, alert, in no acute distress, well-hydrated, well nourished. and Overweight. Neck: Supple, no adenopathy; thyroid symmetric, normal size, no bruits. Lungs: Lungs clear to auscultation. No wheezing, rhonchi, rales. Heart: RRR without murmur, gallop, or rubs. No ectopy. Health Maintenance List BP CONTROLLED (<130/80) due on 1962 DTAP,TDAP,TD(1 - Tdap) due on 1963 INFLUENZA(1) due on 03/31/2018 - declines MAMMOGRAM due on 10/18/2018 ANNUAL PCP TEAM CHRONIC DISEASE VISIT due on 02/07/2019 COLORECTAL CANCER SCREENING,SEE MODIFIER due on 07/11/2020 DIABETES SCREEN due on 04/20/2021 LIPID SCREEN due on 10/13/2022 BONE DENSITY Completed ADULT PREVNAR-13 Completed PNEUMOVAX AGE 65 AND OVER WITH 5YR LOOKBACK Completed Data reviewed External labs ASSESSMENT/PLAN: 1. Hypothyroidism, unspecified type - ICD9: 244.9, ICD10: E03.9 (primary diagnosis) - Instructed patient on importance of taking on an empty stomach either first thing in the morning or at bedtime. - Continue current medication regimen. - LEVOTHYROXINE 100 MCG TABLET 2. Hypertension, unspecified - D/C Losartan; take HCTZ 25 mg daily. 3. Vitamin D deficiency - ICD9: 268.9, ICD10: E55.9 - Continue current medication regimen. 4. Mixed hyperlipidemia - ICD9: 272.2, ICD10: E78.2 - good control - Continue lifestyle as discussed - Encouraged following a low carbohydrate, healthy oil intake diet. 5. Acute frontal sinusitis, recurrence not specified - ICD9: 461.1, ICD10: J01.10 - Nasal Elma given today Follow up in 3 months with BMP prior I agree with the Chief Complaint, ROS, and Past Histories independently gathered by the clinical ict customer support officer and the remaining scribed note accurately describes my personal service to the patient. Francis Botello MD The documentation for this note was completed by Samia Llamas Ma acting as scribe for Francis Botello MD. April 23, 2018 9:35 AM. BASIC METABOLIC Collected: 04/20/2018 Status: F Source: [place] PROFILE (BMP) 10:18 AM [facility] REPOSITORY TYPE CODE TESTS RESULT OUT OF RANGE REFERENCE UNITS LAB L501.0100 74-106 mg/dL Normal GLU 92 Result Comment: Please note revised GLUCOSE reference range effective 2017. LAB L501.1000 7-18 mg/dL Normal BUN 17 LAB L501.1100 0.55-1.02 mg/dL High CREAT,SERUM 1.13 Result Comment: The validity of the calculated GFR AND GFRAA in patients over 70 years has not been determined. Clinical correlation is essential. LAB L501.1110 >60 mL/min Low EST GFR 50 Result Comment: Non- GFR Calc LAB L501.1115 >60 mL/min Normal EST GFR - AA 61 Result Comment: GFR Calc LAB L501.1300 10-20 RATIO Normal BUN/CRE 15.0 LAB L501.2200 8.5-10.1 mg/dL CA Normal 8.5 LAB L501.5300 136-145 mmol/L NA Normal 141 LAB L501.5600 3.5-5.1 mmol/L K Normal 4.1 LAB L501.5900 98-107 mmol/L CL Normal 105 LAB L501.6100 21.0-32.0 mmol/L Normal CO2 29.0 LAB L501.6200 5-15 Normal GAP 7 Performed By: #### L500.2500, L500.4100, L501.9520 #### [facility] [address] [place], [address] LIPID PROFILE Collected: 04/20/2018 Status: F Source: [place] 10:18 AM [facility] REPOSITORY TYPE CODE TESTS RESULT OUT OF RANGE REFERENCE UNITS LAB L501.4900 200 mg/dL Normal CHOL 198 Result Comment: <200 mg/dL Desirable 200-240 mg/dL Borderline >240 mg/dL High Risk LAB L501.5000 mg/dL Normal TRIG 115 Result Comment: The drugs N-Acetylcysteine and Metamizole may falsely depress this assay. Serum Triglycerides Reference Interval Normal <150 mg/dL Borderline high 150 - 199 mg/dL High 200 - 499 mg/dL Very High > or = 500 mg/dL LAB L501.6400 mg/dL Normal HDL 43 Result Comment: The drugs N-Acetylcysteine and Metamizole may falsely depress this assay. Reference Range HDL <40 mg/dL Low HDL Cholesterol HDL >or= 60 mg/dL High HDL Cholesterol LAB L501.6500 0-130 mg/dL High LDL 132 LAB L501.6600 5-40 mg/dL Normal VLDL 23 Performed By: #### L500.2500, L500.4100, L501.9520 #### [facility] [address] [place], [address] THYROID STIM HORMONE Collected: 04/20/2018 Status: F Source: [place] (TSH) 10:18 AM [facility] REPOSITORY TYPE CODE TESTS RESULT OUT OF RANGE REFERENCE UNITS LAB L501.9520 0.358-3.74 uIU/mL Normal TSH 0.98 Performed By: #### L500.2500, L500.4100, L501.9520 #### [facility] [address] [place], [address] CAROTID DUPLEX Observed: 03/08/2018 Status: F Source: [place] ULTRASOUND 6:04 PM [facility] REPOSITORY [facility] Cardiovascular Services [address] [place] [address] Carotid Duplex Ultrasound 03/08/18 0828 MR#: [id number] Acct: [id number] Name: RADHA ROMANO Rep #: [id number] : 1945 72 From: Cruzito Corrales MD Attending Dr: Robby Blanco MD Status: REG CLI Ordering Dr: Robby Blanco MD Date: 03/08/18 Location: [facility] Sex: F C Admitted: Reason For Study: Carotid bruit Rt. Velocities/BP Lt. Velocities/BP Prox CCA 66.3/17.6 cm/sec. Prox CCA 70.4/18.2 cm/sec. Mid CCA 67.4/16.4 cm/sec. Mid CCA 66.3/19.3 cm/sec. Dist CCA 61.6/15.2 cm/sec. Dist CCA 68.6/18.8 cm/sec. Prox ICA 57.5/17.6 cm/sec. Prox ICA 66.8/18.8 cm/sec. Mid ICA 77.4/24.0 cm/sec. Mid ICA 83.3/26.4 cm/sec. Dist ICA 106.0/28.1 cm/sec. Dist ICA 86.8/27.6 cm/sec. Rt. ICA/CCA = 1.6. Lt. ICA/CCA = 1.3. Prox ECA 68.0/11.7 cm/sec. Prox ECA 63.3/8.2 cm/sec. Rt. Vert. 45.7/14.7 cm/sec. Lt. Vert. 63.3/12.3 cm/sec. Right Extracranial There is intimal thickening but no significant atherosclerotic plaque noted in the right common carotid artery. There is heterogeneous, irregular atherosclerotic plaque noted in the right internal carotid artery. There is no significant atherosclerotic plaque noted in the right external carotid artery. Antegrade flow is noted in the right vertebral artery. Left Extracranial There is intimal thickening but no significant atherosclerotic plaque noted in the left common carotid artery. There is homogeneous, smooth atherosclerotic plaque noted in the left internal carotid artery. There is no significant atherosclerotic plaque noted in the left external carotid artery. Antegrade flow is noted in the left vertebral artery. Procedure Carotid Duplex [id number]. Exam performed in department. Interpretation Summary Minimal plague at the proximal bilateral internal carotids with <50% stenosis. Normal flow bilateral external carotids Patent and antegrade bilateral vertebrals Ordering Physician: Robby Blanco Referring Physician: MD Francis Botello Performed By: Hyacinth Melgar RVT 03/08/181802 Date Cruzito Corrales MD CC: Francis Botello MD; Robby Blanco MD Date Dictated: 03/08/18 0828 Date Transcribed: 03/08/181802 Assistant Finance Director: Signed STRESS REPORT Observed: 03/08/2018 Status: F Source: [place] 12:26 PM [facility] REPOSITORY [facility] Cardiovascular Services [address] [place] [address] MR#: [id number] Acct: [id number] Name: RADHA ROMANO Rep #: [id number] : 1945 72 From: Robby Blanco MD Primary Care: Ayan SCALES,Francis Status: REG CLI Ordering Dr: Sex: F C Stress Test Report Date: 03/08/2018 Procedure: Pharmacologic stress nuclear imaging study Indications: Shortness of breath/dyspnea Consent: Per the patient Procedure: The patient underwent pharmacologic (Regadenoson) evaluation with a peak heart rate of 97 beats per minute (65 predicted maximal heart rate) and a peak blood pressure of 138/78 mmHg. The baseline ECG demonstrated normal sinus rhythm. The peak pharmacologic ECG demonstrated no obvious ECG. There were no cardiac dysrhythmias pretest, during pharmacologic infusion, or recovery. There was no complaint of chest discomfort during pharmacologic infusion or recovery. The examination was discontinued secondary to completion of protocol. Impression: 1. Pharmacologic (Regadenoson) evaluation 2. Peak pharmacologic ECG with no obvious ECG changes. 3. There were no cardiac dysrhythmias pretest, during pharmacologic infusion, or recovery 4. Nuclear images pending Myocardial perfusion imaging study: Technique: The patient was injected with 15 millicuries of technetium 99m Cardiolite and subsequently rest SPECT Cardiolite nuclear imaging was obtained in the horizontal long, vertical long, and short axis views. The patient underwent pharmacologic (Regadenoson) evaluation with a peak heart rate of 97 beats per minute (65 % percent predicted maximal heart rate) and a peak blood pressure of 138/78 mmHg. The patient was injected with 45 millicuries of technetium 99m Cardiolite and subsequently stress SPECT Cardiolite nuclear imaging was obtained in the horizontal long, vertical long, and short axis views. A gated Cardiolite study at peak stress was obtained. Interpretation: Rest and stress SPECT Cardiolite nuclear imaging status post realignment, normalization, and attenuation correction demonstrate a small area of subtle diminished tracer uptake near the apical segment without significant change between rest and stress appearing compatible with physiologic apical thinning. There is end systolic thickening and brightening. The gated Cardiolite study demonstrates myocardial thickening and inward wall motion. The reported LVEF is 75 %. Impression: 1. And stress SPECT Cardiolite nuclear imaging demonstrate a small area of subtle decreased tracer uptake near the apical segments without significant change between rest and stress appearing compatible with physiologic apical thinning with no myocardial perfusion changes consider diagnostic for associated stress-induced myocardial ischemia or previous myocardial injury/infarction. 2. The gated Cardiolite study reports an LVEF of 75 %. This note was generated with [employer]ation software. It may contain incorrect words, spelling, and punctuation that were not noted in checking the note before signing. 03/08/18 1226 <Electronically signed by Robby Blanco MD> Date Robby Blanco MD CC: Francis Botello MD; Robby Blanco MD Date Dictated: 03/08/18 1223 Date Transcribed: 03/08/181222 Assistant Finance Director: PM Signed CARDIOLOGY VISIT Observed: 03/01/2018 Status: F Source: [place] REPORT 4:05 PM [facility] REPOSITORY [facility] [address] [place] [address] OFFICE VISIT Date of Service: 03/01/18 MR#: [id number] Acct: [id number] Name: RADHA ROMANO Rep #: [id number] : 1945 Provider: Robby Blanco MD Age/Sex: 72/F Location: [facility] [place] Status: Signed HPI HPI Details: RADHA ROMANO, is a 72 F who presents to the office today for for outpatient cardiovascular consultation based upon concerns of shortness of breath/dyspnea, edema, abnormal electrocardiogram, superimposed upon concerns of underlying decreased diastolic compliance, hypertension, and hypothyroidism. She has undergone cardiovascular evaluation in the past. It appears that in 2009 she underwent an exercise tolerance test/imaging study. At that time she exercised on a Ramiro protocol for 1 minute and 50 seconds achieving 88% predicted maximal heart rate with a peak blood pressure 160/88 mmHg. She had what was considered a marked dyspnea and a low level of exercise with associated chest discomfort suspicious for angina and a severely impaired exercise tolerance. Her electrocardiogram demonstrated nonspecific upsloping inferolateral ST segment depression. Her nuclear images demonstrated no fixed defects to suggest infarct or reversible defects to suggest ischemia. However based on her clinical course she underwent further evaluation with diagnostic cardiac catheterization at [facility] in [place], [place] on 05/28/2010. According to the report she was noted to have minimal luminal irregularities involving the proximal LAD and otherwise no angiographically demonstrable coronary artery disease with preserved LV systolic function with an LVEF of 60% with systemic hypertension. More recently she has been noticing shortness of breath with exertion such as climbing stairs. However at the same time she states she is very active working 2 jobs and does not necessarily complain of additional shortness of breath. She has not had orthopnea or PND. There has been no associated chest discomfort. She has not had near syncope or syncope. She has recently developed lower extremity peripheral pitting edema. She states she was noted to be hypertensive. Her medicines were adjusted. She was placed on losartan with an initial dose of 50 mg once a day increasing to 100 mg once a day. She was also placed on HCTZ at 25 mg a day. She notes her losartan dose was decreased because she complained of feeling dizzy. She notes her HCTZ prescription ran out and she did not refill it. She has had no other cardiovascular testing other than her ECG. She did have an ECG in the office today. This demonstrated sinus rhythm/sinus bradycardia with a leftward axis. She had a previous ECG on 12/26/2017 at the [facility] office. At that time it was interpreted as normal sinus rhythm with left axis deviation. Intake Vital Signs03/01/18 Height 5 ft 5 in 03/01/18 Weight: 242 lb 03/01/18 Body Mass Index (BMI) 40.2 03/01/18 Blood Pressure 166/84 Intake Visit [facility]: [facility] Penicillins Allergy (Verified 03/01/18 15:01) Hives hydrochlorothiazide Adverse Reaction (Severe, Verified 03/01/18 15:03) Dizziness/Lightheadedness meperidine HCl [From Demerol] Adverse Reaction (Verified 03/01/18 15:01) Other Medications levothyroxine 100 mcg tablet 100 mcg PO QDAY 02/28/18 [History Confirmed 03/01/18] hydrochlorothiazide 25 mg tablet 25 mg PO QDAY #30 tab 03/01/18 [Rx Confirmed 03/01/18] losartan 100 mg tablet 50 mg PO QDAY tab 03/01/18 [History Confirmed 03/01/18] [facility] Medical History Abnormal EKG (Acute) Hypertension (Chronic) Hypothyroidism (Chronic) Malignant neoplasm of rectum, rectosigmoid junction and anus (Acute) History of colon cancer (Inactive) Surgical History History of cholecystectomy (Resolved) History of colectomy (Resolved) History of hemorrhoidectomy (Resolved) History of thyroidectomy (Resolved) History of hernia repair (Inactive) Family History Mother CAD (coronary artery disease) Myocardial infarction, Onset Age: 66 Hypertension Sister CAD (coronary artery disease) Myocardial infarction, Onset Age: 63 Brother Heart disease History of implantable cardioverter-defibrillator (ICD) placement Grandmother Hypertension Social History Smoking Status: Never smoker alcohol intake: never ROS Const Const: Negative for fatigue, weakness, weight gain, weight loss, frequent falls or excessive sweating Eyes Eyes: Negative for change in vision, blurry vision or transient loss of vision ENT ENT: Negative for dizziness or balance problems Cardio Chest Pain: Yes Character: other (heaviness) Onset: at rest Location: mid sternal Relieving: rest Palpitations: No Edema: Bilateral (occasional) Muscle aches with walking: None Additional Details: Patient reports occasional chest heaviness midsternal while at rest. Patient reports occasional SOB when experiencing chest heaviness. Resp Respiratory: Positive for SOB with activity (going upstairs); negative for SOB at rest GI GI: Negative vomiting or vomiting blood/hematemesis : Negative for hematuria Musc Musc: Negative for balance problems, muscle aches/ myalgia, muscle weakness or joint pain Skin Skin: Negative non-healing lesions or rash Neuro Neuro: Negative for weakness, blurry vision, dizziness, lightheadedness, frequent falls or orthostatic symptoms Ian Hematologic/Lymphatic: Negative for easy bleeding Endo Endo: Negative for fatigue or excessive sweating Psych Psych: Negative for anxiety or depression Allergy Allergy/Immunology: Negative for hives, Negative for rash Cardiology Exam Const Appearance: cooperative, healthy appearing, comfortable, no acute distress, well developed and well groomed Nutritional Appearance: overweight Orientation: alert, awake and oriented x3 Head Head: normal to inspection, normocephalic and atraumatic Ears: hearing grossly normal bilaterally Nose: external nose normal Face and Sinus: face symmetric Mouth: oral mucosae normal Teeth and gingiva: fair dentition Eyes Eyelids: eyelids normal Pupils: PERRL EOM: EOM intact bilaterally Neck Neck: normal visual inspection Carotids: bruit Right Chest Chest inspection: normal inspection of the chest and symmetric chest movement Auscultation: Bilateral: Clear to Auscultation Cardio Palpation: normal PMI Rate: regular rate Rhythm: regular rhythm Heart sounds: S1 normal, S2 normal and positive S4 GI GI: normal to inspection, bowel sounds present, soft and no hepatosplenomegaly Neuro General: alert, awake, oriented x3 and moves all extremities Skin Skin: no rashes or lesions noted Extremities Pulses: Normal: Right Radial Pulse, Left Radial Pulse Lower Extremity Edema: +1: Bilateral Psych Psychological: normal affect Assessment AND Plan 1. Shortness of breath R06.02 Plan At the present time her shortness of breath may be multifactorial. She will need to be evaluated for any obvious evidence of anemia. From a cardiac standpoint she will have a follow-up pharmacologic stress nuclear imaging study as she states she cannot walk on a treadmill. There may be concerns as to whether this could be related to any decreased diastolic compliance. Thus it is prudent to keep her blood pressure and her volume under good control. Orders Orders: 2. Bruit of right carotid artery R09.89 Plan She does have a right carotid artery bruit. She appears to be unaware of this diagnosis. Based upon concerns of underlying peripheral arterial occlusive disease she will be evaluated with a carotid artery duplex study. Orders Orders: 3. Edema, unspecified type R60.9 Plan She does have edema of the lower extremities. It is unclear whether this is related to a cardiovascular component versus venous insufficiency or lymphatic insufficiency. At the moment she will continue medical management. This will include restart of her HCTZ therapy at 25 mg a day. She will monitor for any adverse events. She will also undergo evaluation as noted above. Orders Orders: 4. Abnormal electrocardiogram R94.31 Plan She was told she had an abnormal echocardiogram. Her electric cardiogram at [facility] recorded left axis deviation. It was repeated today. She does appear to have a leftward axis. From a cardiac standpoint she has had previous evaluation. She has undergone a more recent evaluation. She will have further evaluation as noted above Orders Orders: 5. Essential hypertension I10 Plan Her blood pressure remains elevated. She will continue her ARB therapy. She will reinitiate HCTZ therapy. She was asked to have her blood pressure monitored especially if she is symptomatic. She may need further adjustments of her medications to help bring her blood pressure under better control. Orders Orders: 6. Hypothyroidism, unspecified type E03.9 Plan Her TSH level was reviewed and it was low. She states her PCP is adjusting her thyroid supplement. 7. Diastolic dysfunction I51.9 Plan She is reported as having decreased diastolic compliance. This may contribute to some of her symptoms and objective findings. The awan is to control her blood pressure and her volume status. Plan Detail Other Medications New: Additional Comments Thank you for allowing me to participate in the care of your patient. Please don't hesitate to call if any issues arise. This note was generated using a voice recognition system and there may be incorrect words, spelling or punctuation that were not noted when reviewing the office note prior to saving. Follow Up 6 Months Coding Level of Care Code Off vis,new,level 4 Diagnoses Shortness of breath R06.02 Bruit of right carotid artery R09.89 Edema, unspecified type R60.9 Edema type: unspecified Abnormal electrocardiogram R94.31 Essential hypertension I10 Hypertension type: essential hypertension Hypothyroidism, unspecified type E03.9 Hypothyroidism type: unspecified Diastolic dysfunction I51.9 Time Spent (min) 30 Coding Level of Care Code Off vis,new,level 4 Diagnoses Shortness of breath R06.02 Bruit of right carotid artery R09.89 Edema, unspecified type R60.9 Edema type: unspecified Abnormal electrocardiogram R94.31 Essential hypertension I10 Hypertension type: essential hypertension Hypothyroidism, unspecified type E03.9 Hypothyroidism type: unspecified Diastolic dysfunction I51.9 Time Spent (min) 30 03/01/18 1605 <Electronically signed by Robby Blanco MD> Date Robby Blanco MD Cosigner Signature: Date (if applicable) CC: Francis CASEY Observed: 02/08/2018 Status: COMPLETED Source: [place] 12:00 AM [facility] REPOSITORY [facility] JUAN ANTONIORADHA ([id number]) 1945 F Date Time Provider Department 02/08/18 FRANCIS BOTELLO [facility] During your visit today, we recorded the following information about you: Shaun Fernandez RN 02/08/2018 8:24 AM Signed Patient calls stating that since taking increased dose of Losartan she felt dizzy and slightly diaphoretic this earlier this morning. At this time she does not feel dizzy but the sweating is persisting. States she only took 75 mg as she only had 3-50 mg pills left at home. She is unable to take BP. She will call back around noon as she is at work and will not be able to be reached. Shaun Botello MD 02/08/2018 10:20 AM Signed Go back to 50 mg of losartan and see if she feels better. MD Laly Lua Cma 02/08/2018 10:24 AM Signed Gave message to spouse, voiced understanding will relay message to patient Laly Polk Cma Allergies As of Date: 02/08/2018 Noted Allergy Reaction PENICILLINS 05/08/2008 4 - Hives DEMEROL (MEPERIDINE (PF)) 12/10/2008 Comments: mental status change Date Reviewed: 02/07/2018 Reviewed by: Laly Polk Cma - Fully Assessed Reason for Visit: Patient Update [1234] Prescriptions as of 02/08/2018 Sig: LOSARTAN 100 MG TABLET Take 1 tablet by mouth once d* HYDROCHLOROTHIAZIDE 25 MG TAB* Take 1 tablet by mouth once d* LEVOTHYROXINE 100 MCG TABLET Take 1 tablet by mouth once d* CHOLECALCIFEROL (VITAMIN D3) * Take 1 capsule by mouth once * Problem List As Of Date 02/08/2018 Noted Resolved RECTAL AND ANAL HEMORRHAGE [K62.5] COLONIC CANCER SIGMOID [C18.7] INVALID FOR* FIT/ADJUST INTEST APPLIANCE NOS [V53.5] INVALID FOR* GOITER MULTINODULAR, NONTOXIC [E04.2] INVALID FOR* Gallstones [K80.20] INVALID FOR* Hypothyroidism [E03.9] INVALID FOR* Personal History of Colon Cancer [Z85.038] INVALID FOR* Colon Polyp [K63.5] INVALID FOR* Vitamin D deficiency [E55.9] INVALID FOR* Abdominal pain, unspecified site [R10.9] INVALID FOR*03/17/2016 Incisional hernia [K43.2] INVALID FOR* Unspecified hemorrhoids without mention of comp*INVALID FOR* Mixed hyperlipidemia [E78.2] INVALID FOR* Encounter Status:Closed by XOCHITL CARROLL CNP on 02/08/18 CNOV Observed: 02/07/2018 Status: COMPLETED Source: [place] 7:40 AM [facility] REPOSITORY Office Visit ([facility]) RADHA ROMANO ([id number]) 1945 F Date Time Provider Department 02/07/18 7:40 AM XOCHITL CARROLL ([place]) [facility] During your visit today, we recorded the following information about you: Temperature Pulse Blood pressure Weight 97.7 degrees 68/minute 152/82 109.8 kg Xochitl Carroll APRN.CNP 02/07/2018 8:04 AM Signed Chief Complaint Patient presents with: F/U 1 month HPI Radha Romano is a 72 year old female who presents here today for Above Complaints.. Patient presents for one month follow up for blood pressure. Was in the office for leg swelling follow up, started on Losartan 50 mg daily. Also is prescribed 25 mg of HCTZ daily. Since last month, the patient is overall doing well. Continues to work. Leg swelling is intermittent and bilateral, improves with elevation. No syncope, chest pain, shortness of breath. No lightheadedness. Does not check her blood pressure at home. Does not add salt to her diet. Blood pressure is elevated today at 152/82. Thyroid: Reduce Levothyroxine to 100 mcg due to a finding of a TSH of 0.15 on 01/08/2018. Past medical history, appointments, medications, allergies reviewed. Previous Medical History PAST MEDICAL HISTORY Diagnosis Date - Benign neoplasm of colon - Internal hemorrhoids without mention of complication - Personal history of colonic polyps - Personal history of malignant neoplasm of rectum, rectosigmoid junction, and anus - Unspecified hypothyroidism Previous Surgical History PAST SURGICAL HISTORY Procedure Laterality Date - CLOSE ENTEROSTOMY 12/05/08 - COLONOS W/REM POLYP SNARE 06/30/08 - COLONOSCOP W/ OR W/O [facility] SPEC 04-04-14 - COLONOSCOPY W/BX 01/15/10 Ileocecal mass - COLONOSCOPY W/BX 03/18/11 repeat in - HEMORRHOIDECTOMY,INT/EXT,COMPLX 02-22-13 - LAP CHOLECYSTECT/CHOLANGIOGRAPHY 02-08-10 - LAP COLECTMY W COLOPROC/COLOST 08/05/08 - LAP COLECTMY W/ILEUM/ILEOCOL 02-08-10 right colon - LAP VENT/ABD YURIY PROC COMP 06-17-13 - REVISION OF ILEOSTOMY,COMPLICATED 08-18-08 - SIGMOIDOSCOPY FLEX DIAG 11/28/08 Patent colorectal anastomosis - THYROID LEFT FINE NEEDLE ASPIRATION 10/08/08 Bilateral thyroid nodules aspirated - THYROID RIGHT FINE NEEDLE ASPIRATION 10/08/08 - THYROIDECTOMY 06-23-09 - VAGINAL HYSTERECTOMY Hysterectomy, vaginal Family History FAMILY HISTORY Problem Relation Age of Onset - Heart Mother SC at age 66; CABG x 6 - Heart Sister SC at age 63 - Cancer Sister mouth - Heart Brother arrythmia; implanted debrillator - Hypertension Mother - Hypertension Maternal Grandmother - Hypertension Maternal Aunt - Hypertension Maternal Aunt Patient Allergies ALLERGIES Allergen Reactions - Penicillins Hives - Demerol [Meperidine* mental status change Current Medications Current Outpatient Prescriptions on File Prior to Visit: losartan (COZAAR) 50 mg tablet Take 1 tablet by mouth once daily. hydroCHLOROthiazide (HYDRODIURIL, ESIDRIX) 25 mg tablet Take 1 tablet by mouth once daily. levothyroxine (SYNTHROID) 100 mcg tablet Take 1 tablet by mouth once daily. Take on empty stomach. For thyroid. Cholecalciferol, Vitamin D3, 5,000 unit cap Take 1 capsule by mouth once daily. No current facility-administered medications on file prior to visit. Social History Social History Marital status: Spouse name: Ekta Years of education: Number of children: 2 Occupational History Occupation Employer Comment [employer]* Social History Main Topics Smoking status: Never Smoker Smokeless tobacco: Never Used Alcohol use: No Drug use: No REVIEW OF SYSTEMS: as above ? Reviewed relevant PMHx, PSHx, Social Hx, current medications and allergies. EXAM: BP 152/82 Pulse 68 Temp 36.5 ?C (97.7 ?F) (Tympanic) Wt 109.8 kg (242 lb) BMI 37.90 kg/m? General Appearance: Well appearing, alert, in no acute distress, well-hydrated, well nourished.. Head: Normocephalic, no masses, lesions, tenderness or abnormalities. Lungs: Lungs clear to auscultation. No wheezing, rhonchi, rales. Heart: RRR without murmur, gallop, or rubs. No ectopy. Extremities: No deformities, trace pitting edema bilaterally. Health Maintenance List DTAP,TDAP,TD(1 - Tdap) due on 1963 ZOSTER VACCINE (SHINGRIX)(1 of 2) due on 1994 INFLUENZA(1) due on 03/31/2018 MAMMOGRAM due on 10/18/2018 DIABETES SCREEN due on 03/15/2019 COLORECTAL CANCER SCREENING,SEE MODIFIER due on 07/11/2020 LIPID SCREEN due on 10/13/2022 BONE DENSITY Completed ADULT PREVNAR-13 Completed PNEUMOVAX AGE 65 AND OVER WITH 5YR LOOKBACK Completed Data reviewed External TSH, BMP 01/08/2018 reviewed. ASSESSMENT/PLAN: 1. Essential hypertension - ICD9: 401.9, ICD10: I10 (primary diagnosis) - suboptimal control - Increase losartan(Cozaar) - Recommended regular aerobic exercise. - Goal of BP <130/80 - BASIC METABOLIC PNL - LOSARTAN 100 MG TABLET 2. Hypothyroidism, unspecified type - ICD9: 244.9, ICD10: E03.9 - Instructed patient on importance of taking on an empty stomach either first thing in the morning or at bedtime. - check TSH in 3 months - continue current dose of Synthroid 0.100 mg - TSH BLD F/u with nurse visit in 3-4 weeks for BP check, gets lab prior to appointment with Dr. Botello in March. JIM Mott APRN.CNP 02/07/2018 8:01 AM Signed Get blood pressure rechecked in a few weeks with a nurse. Keep appointment with Dr. Botello in March. Get labs prior at [facility]. Xochitl Carroll APRN.CNP Referring Provider: XOCHITL CARROLL (TRAVEL CLERK) [[id number]] Allergies As of Date: 02/07/2018 Noted Allergy Reaction PENICILLINS 05/08/2008 4 - Hives DEMEROL (MEPERIDINE (PF)) 12/10/2008 Comments: mental status change Date Reviewed: 02/07/2018 Reviewed by: Laly Polk Carbon [employer]inter - Fully Assessed Reason for Visit: F/U 1 month [1175] Primary Visit Diagnosis:Essential hypertension [I10] Other Visit Diagnosis:Hypothyroidism, unspecified type [E03.9] Order(s):BASIC METABOLIC PNL [SQBMP] Order #: [id number] FUTURE TSH BLD [SQTSH] Order #: [id number] FUTURE losartan (COZAAR) 100 mg tabletTake 1 tablet by mouth once daily.Disp: 30 tabletRfl: 2 Prescriptions as of 02/07/2018 Sig: LOSARTAN 100 MG TABLET Take 1 tablet by mouth once d* HYDROCHLOROTHIAZIDE 25 MG TAB* Take 1 tablet by mouth once d* LEVOTHYROXINE 100 MCG TABLET Take 1 tablet by mouth once d* CHOLECALCIFEROL (VITAMIN D3) * Take 1 capsule by mouth once * Problem List As Of Date 02/07/2018 Noted Resolved RECTAL AND ANAL HEMORRHAGE [K62.5] COLONIC CANCER SIGMOID [C18.7] INVALID FOR* FIT/ADJUST INTEST APPLIANCE NOS [V53.5] INVALID FOR* GOITER MULTINODULAR, NONTOXIC [E04.2] INVALID FOR* Gallstones [K80.20] INVALID FOR* Hypothyroidism [E03.9] INVALID FOR* Personal History of Colon Cancer [Z85.038] INVALID FOR* Colon Polyp [K63.5] INVALID FOR* Vitamin D deficiency [E55.9] INVALID FOR* Abdominal pain, unspecified site [R10.9] INVALID FOR*03/17/2016 Incisional hernia [K43.2] INVALID FOR* Unspecified hemorrhoids without mention of comp*INVALID FOR* Mixed hyperlipidemia [E78.2] INVALID FOR* Other instructions from your clinician: Get blood pressure rechecked in a few weeks with a nurse. Keep appointment with Dr. Botello in March. Get labs prior at [facility]. Xochitl Carroll APRN.[place] Prescriptions ordered this encounter Disp Refills Start End LOSARTAN 100 MG TABLET 30 t* 2 02/07/2018 Route: ORAL Sig: Take 1 tablet by mouth once daily. Medications Discontinued During This Encounter losartan (COZAAR) 50 mg tablet 30 t* 2 01/10/2018 02/07/2018 Route: ORAL Sig: Take 1 tablet by mouth once daily. Disc: Reason for discontinue is not on file. Disposition: Return in about 3 months (around 05/10/2018) for HTN, Thyroid f/u. Follow-up and Disposition History Recorded Encounter Status:Closed by XOCHITL CARROLL CNP on 02/07/18 PROGRESS Observed: 02/07/2018 Status: COMPLETED Source: [place] 7:39 AM [facility] [place] REPOSITORY [facility] [place] ID: [id number] Author: Xochitl Carroll Service: (none) Author Type: Nurse Practitioner Type: Progress Notes Filed: 02/07/2018 8:04 AM Note Text: Chief Complaint Patient presents with: F/U 1 month HPI Radha Romano is a 72 year old female who presents here today for Above Complaints.. Patient presents for one month follow up for blood pressure. Was in the office for leg swelling follow up, started on Losartan 50 mg daily. Also is prescribed 25 mg of HCTZ daily. Since last month, the patient is overall doing well. Continues to work. Leg swelling is intermittent and bilateral, improves with elevation. No syncope, chest pain, shortness of breath. No lightheadedness. Does not check her blood pressure at home. Does not add salt to her diet. Blood pressure is elevated today at 152/82. Thyroid: Reduce Levothyroxine to 100 mcg due to a finding of a TSH of 0.15 on 01/08/2018. Past medical history, appointments, medications, allergies reviewed. Previous Medical History PAST MEDICAL HISTORY Diagnosis Date - Benign neoplasm of colon - Internal hemorrhoids without mention of complication - Personal history of colonic polyps - Personal history of malignant neoplasm of rectum, rectosigmoid junction, and anus - Unspecified hypothyroidism Previous Surgical History PAST SURGICAL HISTORY Procedure Laterality Date - CLOSE ENTEROSTOMY 12/05/08 - COLONOS W/REM POLYP SNARE 06/30/08 - COLONOSCOP W/ OR W/O [facility] SPEC 04-04-14 - COLONOSCOPY W/BX 01/15/10 Ileocecal mass - COLONOSCOPY W/BX 03/18/11 repeat in - HEMORRHOIDECTOMY,INT/EXT,COMPLX 02-22-13 - LAP CHOLECYSTECT/CHOLANGIOGRAPHY 02-08-10 - LAP COLECTMY W COLOPROC/COLOST 08/05/08 - LAP COLECTMY W/ILEUM/ILEOCOL 02-08-10 right colon - LAP VENT/ABD YURIY PROC COMP 06-17-13 - REVISION OF ILEOSTOMY,COMPLICATED 08-18-08 - SIGMOIDOSCOPY FLEX DIAG 11/28/08 Patent colorectal anastomosis - THYROID LEFT FINE NEEDLE ASPIRATION 10/08/08 Bilateral thyroid nodules aspirated - THYROID RIGHT FINE NEEDLE ASPIRATION 10/08/08 - THYROIDECTOMY 06-23-09 - VAGINAL HYSTERECTOMY Hysterectomy, vaginal Family History FAMILY HISTORY Problem Relation Age of Onset - Heart Mother SC at age 66; CABG x 6 - Heart Sister SC at age 63 - Cancer Sister mouth - Heart Brother arrythmia; implanted debrillator - Hypertension Mother - Hypertension Maternal Grandmother - Hypertension Maternal Aunt - Hypertension Maternal Aunt Patient Allergies ALLERGIES Allergen Reactions - Penicillins Hives - Demerol [Meperidine* mental status change Current Medications Current Outpatient Prescriptions on File Prior to Visit: losartan (COZAAR) 50 mg tablet Take 1 tablet by mouth once daily. hydroCHLOROthiazide (HYDRODIURIL, ESIDRIX) 25 mg tablet Take 1 tablet by mouth once daily. levothyroxine (SYNTHROID) 100 mcg tablet Take 1 tablet by mouth once daily. Take on empty stomach. For thyroid. Cholecalciferol, Vitamin D3, 5,000 unit cap Take 1 capsule by mouth once daily. No current facility-administered medications on file prior to visit. Social History Social History Marital status: Spouse name: Ekta Years of education: Number of children: 2 Occupational History Occupation Employer Comment [employer]* Social History Main Topics Smoking status: Never Smoker Smokeless tobacco: Never Used Alcohol use: No Drug use: No REVIEW OF SYSTEMS: as above ? Reviewed relevant PMHx, PSHx, Social Hx, current medications and allergies. EXAM: BP 152/82 Pulse 68 Temp 36.5 ?C (97.7 ?F) (Tympanic) Wt 109.8 kg (242 lb) BMI 37.90 kg/m? General Appearance: Well appearing, alert, in no acute distress, well-hydrated, well nourished.. Head: Normocephalic, no masses, lesions, tenderness or abnormalities. Lungs: Lungs clear to auscultation. No wheezing, rhonchi, rales. Heart: RRR without murmur, gallop, or rubs. No ectopy. Extremities: No deformities, trace pitting edema bilaterally. Health Maintenance List DTAP,TDAP,TD(1 - Tdap) due on 1963 ZOSTER VACCINE (SHINGRIX)(1 of 2) due on 1994 INFLUENZA(1) due on 03/31/2018 MAMMOGRAM due on 10/18/2018 DIABETES SCREEN due on 03/15/2019 COLORECTAL CANCER SCREENING,SEE MODIFIER due on 07/11/2020 LIPID SCREEN due on 10/13/2022 BONE DENSITY Completed ADULT PREVNAR-13 Completed PNEUMOVAX AGE 65 AND OVER WITH 5YR LOOKBACK Completed Data reviewed External TSH, BMP 01/08/2018 reviewed. ASSESSMENT/PLAN: 1. Essential hypertension - ICD9: 401.9, ICD10: I10 (primary diagnosis) - suboptimal control - Increase losartan(Cozaar) - Recommended regular aerobic exercise. - Goal of BP <130/80 - BASIC METABOLIC PNL - LOSARTAN 100 MG TABLET 2. Hypothyroidism, unspecified type - ICD9: 244.9, ICD10: E03.9 - Instructed patient on importance of taking on an empty stomach either first thing in the morning or at bedtime. - check TSH in 3 months - continue current dose of Synthroid 0.100 mg - TSH BLD F/u with nurse visit in 3-4 weeks for BP check, gets lab prior to appointment with Dr. Botello in March. Xochitl Carroll APRN.TRAVEL CLERK CNPTOUTRCHRISTIANO Observed: 01/23/2018 Status: COMPLETED Source: [place] 12:00 AM [facility] REPOSITORY Patient Outreach ([facility]) RADHA ROMANO ([id number]) 1945 F Date Time Provider Department 01/23/18 FRANCIS BOTELLO [facility] During your visit today, we recorded the following information about you: Allergies As of Date: 01/23/2018 Noted Allergy Reaction PENICILLINS 05/08/2008 4 - Hives DEMEROL (MEPERIDINE (PF)) 12/10/2008 Comments: mental status change Date Reviewed: 01/10/2018 Reviewed by: Xochitl (Energy Specialist) Glen - Fully Assessed Visit Diagnosis:Medication management [Z79.899] Order(s):LIPID PANEL BASIC [SQLIPB] Order #: [id number] FUTURE Prescriptions as of 01/23/2018 Sig: HYDROCHLOROTHIAZIDE 25 MG TAB* Take 1 tablet by mouth once d* X LOSARTAN 50 MG TABLET Take 1 tablet by mouth once d* X LEVOTHYROXINE 100 MCG TABLET Take 1 tablet by mouth once d* CHOLECALCIFEROL (VITAMIN D3) * Take 1 capsule by mouth once * Problem List As Of Date 01/23/2018 Noted Resolved RECTAL AND ANAL HEMORRHAGE [K62.5] COLONIC CANCER SIGMOID [C18.7] INVALID FOR* FIT/ADJUST INTEST APPLIANCE NOS [V53.5] INVALID FOR* GOITER MULTINODULAR, NONTOXIC [E04.2] INVALID FOR* Gallstones [K80.20] INVALID FOR* Hypothyroidism [E03.9] INVALID FOR* Personal History of Colon Cancer [Z85.038] INVALID FOR* Colon Polyp [K63.5] INVALID FOR* Vitamin D deficiency [E55.9] INVALID FOR* Abdominal pain, unspecified site [R10.9] INVALID FOR*03/17/2016 Incisional hernia [K43.2] INVALID FOR* Unspecified hemorrhoids without mention of comp*INVALID FOR* Mixed hyperlipidemia [E78.2] INVALID FOR* Encounter Status:Closed by OVIDIO GILLUSER on 05/11/18 DOWNTIME REPORT Observed: 01/18/2018 Status: F Source: [place] 11:50 AM [facility] REPOSITORY [facility] Medical Records Department [address] [place] [address] Downtime Report MR#: [id number] Acct: [id number] Name: RADHA ROMANO Rep #: [id number] : 1945 72 From: Fahad Kelley PCP: Ayan SCALES,Francis Status: REG CLI This patient was seen during an EMR downtime January 01, 2018 - January 08, 2018. This patient may have a combination of paper and electronic documentation or all paper documentation. All documentation is viewable within the e-chart portion of [facility] for each patient visit. PROGRESS Observed: 01/10/2018 Status: COMPLETED Source: [place] 7:40 AM [facility] [place] REPOSITORY HNO ID: [id number] Author: Xochitl Lopez) Glen Service: (none) Author Type: Nurse Practitioner Type: Progress Notes Filed: 01/10/2018 8:12 AM Note Text: Chief Complaint Patient presents with: 2 week follow up HPI Radha Romano is a 72 year old female who presents here today for Above Complaints. Patient presents to the office for 2 week follow up for bilateral leg swelling. She was placed on lasix, in which she had a possible reaction and developed a rash. She was then placed on HCTZ 25 mg for 14 days. External TSH showed suppression at 0.15. BMP showed a GFR of 48, creatinine of 1.18, BUN 22, which is consistent with her stage III kidney disease. She had an echocardiogram completed, which showed normal EF of 65%, normal left ventricle size, function and appearance. There was impaired left ventricle relaxation identified. Since our encounter 2 weeks ago, the patient is doing better. Swelling has improved. Weight is down 5 pounds. Does have a dry cough. Does feel short of breath with up and down steps. States that she thinks that she has reactions to cleaning solutions. No chest pain. No fevers, chills, syncope, or palpitations. Past medical history, appointments, medications, allergies reviewed. Previous Medical History PAST MEDICAL HISTORY Diagnosis Date - Benign neoplasm of colon - Internal hemorrhoids without mention of complication - Personal history of colonic polyps - Personal history of malignant neoplasm of rectum, rectosigmoid junction, and anus - Unspecified hypothyroidism Previous Surgical History PAST SURGICAL HISTORY Procedure Laterality Date - CLOSE ENTEROSTOMY 12/05/08 - COLONOS W/REM POLYP SNARE 06/30/08 - COLONOSCOP W/ OR W/O [facility] SPEC 04-04-14 - COLONOSCOPY W/BX 01/15/10 Ileocecal mass - COLONOSCOPY W/BX 03/18/11 repeat in - HEMORRHOIDECTOMY,INT/EXT,COMPLX 02-22-13 - LAP CHOLECYSTECT/CHOLANGIOGRAPHY 02-08-10 - LAP COLECTMY W COLOPROC/COLOST 08/05/08 - LAP COLECTMY W/ILEUM/ILEOCOL 02-08-10 right colon - LAP VENT/ABD YURIY PROC COMP 06-17-13 - REVISION OF ILEOSTOMY,COMPLICATED 08-18-08 - SIGMOIDOSCOPY FLEX DIAG 11/28/08 Patent colorectal anastomosis - THYROID LEFT FINE NEEDLE ASPIRATION 10/08/08 Bilateral thyroid nodules aspirated - THYROID RIGHT FINE NEEDLE ASPIRATION 10/08/08 - THYROIDECTOMY 06-23-09 - VAGINAL HYSTERECTOMY Hysterectomy, vaginal Family History FAMILY HISTORY Problem Relation Age of Onset - Heart Mother SC at age 66; CABG x 6 - Heart Sister SC at age 63 - Cancer Sister mouth - Heart Brother arrythmia; implanted debrillator - Hypertension Mother - Hypertension Maternal Grandmother - Hypertension Maternal Aunt - Hypertension Maternal Aunt Patient Allergies ALLERGIES Allergen Reactions - Penicillins Hives - Demerol [Meperidine* mental status change Current Medications Current Outpatient Prescriptions on File Prior to Visit: hydroCHLOROthiazide (HYDRODIURIL, ESIDRIX) 25 mg tablet Take 1 tablet by mouth once daily for 14 days. levothyroxine (SYNTHROID) 112 mcg tablet Take 1 tablet by mouth once daily. Take on empty stomach. For thyroid. Cholecalciferol, Vitamin D3, 5,000 unit cap Take 1 capsule by mouth once daily. No current facility-administered medications on file prior to visit. Social History Social History Marital status: Spouse name: Ekta Years of education: Number of children: 2 Occupational History Occupation Employer Comment [employer]* Social History Main Topics Smoking status: Never Smoker Smokeless tobacco: Never Used Alcohol use: No Drug use: No REVIEW OF SYSTEMS: as above ? Reviewed relevant PMHx, PSHx, Social Hx, current medications and allergies. EXAM: BP 161/77 Pulse 62 Temp 36.3 ?C (97.3 ?F) (Tympanic) Wt 108.4 kg (239 lb) BMI 37.43 kg/m? General Appearance: Well appearing, alert, in no acute distress, well-hydrated, well nourished., Overweight. Oropharynx: Lips, mucosa, and tongue normal, teeth and gums normal, oropharynx normal. Neck: Supple, no adenopathy; thyroid symmetric, normal size, no bruits. Lungs: Lungs clear to auscultation. No wheezing, rhonchi, rales. Heart: RRR without murmur, gallop, or rubs. No ectopy. Abdomen: Normal abdominal exam, Abdomen soft, non-tender. Bowel sounds normal. No masses, organomegaly. Extremities: Pulses: 2+, Edema: Trace to +1 pitting edema of the anterior tibia. Health Maintenance List DTAP,TDAP,TD(1 - Tdap) due on 1963 ZOSTER VACCINE (SHINGRIX)(1 of 2) due on 1994 MAMMOGRAM due on 10/18/2018 DIABETES SCREEN due on 03/15/2019 COLORECTAL CANCER SCREENING,SEE MODIFIER due on 07/11/2020 LIPID SCREEN due on 10/13/2022 BONE DENSITY Completed ADULT PREVNAR-13 Completed INFLUENZA Completed PNEUMOVAX AGE 65 AND OVER WITH 5YR LOOKBACK Completed Data reviewed External BMP, TSH and echocardiogram results reviewed. ASSESSMENT/PLAN: 1. Leg swelling - ICD9: 729.81, ICD10: M79.89 (primary diagnosis) - Cardiac vs venous insufficiency. Patient did have abnormal relaxation of her left ventricle. We will reduce afterload by getting her BP under control. - HYDROCHLOROTHIAZIDE 25 MG TABLET - CONSULT TO CARDIOLOGY 2. Essential hypertension - ICD9: 401.9, ICD10: I10 - newly diagnosed - Begin losartan(Cozaar) - Recommended regular aerobic exercise. - Recommend home blood pressure monitoring, to bring results in on next visit - Goal of BP <130/80 - LOSARTAN 50 MG TABLET - HYDROCHLOROTHIAZIDE 25 MG TABLET 3. Hypothyroidism, unspecified type - ICD9: 244.9, ICD10: E03.9 - Instructed patient on importance of taking on an empty stomach either first thing in the morning or at bedtime. - TSH is suppressed at 0.15 recently. - Decrease Synthroid dose to 0.100 mg - Follow up in 1 months - LEVOTHYROXINE 100 MCG TABLET 4. CKD (chronic kidney disease), stage III - ICD9: 585.3, ICD10: N18.3 - Stable on recent BMP, continue to monitor. 5. DORANTES (dyspnea on exertion) - ICD9: 786.09, ICD10: R06.09 - Reactive airway due to repeat exposure to chemicals (less likely) vs deconditioning vs cardiac etiology. - CONSULT TO CARDIOLOGY 6. Abnormal echocardiogram - ICD9: 793.2, ICD10: R93.1 - Echocardiogram does show abnormal relaxation of the left ventricle. Given her leg swelling, shortness of breath with exertion, we will consult cardiology to determine if stress testing or other testing is recommended. - CONSULT TO CARDIOLOGY Follow up in 1 month for BP follow up. Sooner if needed. Advised ER if having chest pain, worsening SOB. Xochitl Carroll APRN.CNP CNOV Observed: 01/10/2018 Status: COMPLETED Source: [place] 7:40 AM [facility] REPOSITORY Office Visit (FAMPWS) RADHA ROMANO ([id number]) 1945 F Date Time Provider Department 01/10/18 7:40 AM XOCHITL CARROLL ([place]) FAMPWS During your visit today, we recorded the following information about you: Temperature Pulse Blood pressure Weight 97.3 degrees 62/minute 161/77 108.4 kg Xochitl Carroll APRN.CNP 01/10/2018 8:12 AM Signed Chief Complaint Patient presents with: 2 week follow up HPI Radhatere Romano is a 72 year old female who presents here today for Above Complaints. Patient presents to the office for 2 week follow up for bilateral leg swelling. She was placed on lasix, in which she had a possible reaction and developed a rash. She was then placed on HCTZ 25 mg for 14 days. External TSH showed suppression at 0.15. BMP showed a GFR of 48, creatinine of 1.18, BUN 22, which is consistent with her stage III kidney disease. She had an echocardiogram completed, which showed normal EF of 65%, normal left ventricle size, function and appearance. There was impaired left ventricle relaxation identified. Since our encounter 2 weeks ago, the patient is doing better. Swelling has improved. Weight is down 5 pounds. Does have a dry cough. Does feel short of breath with up and down steps. States that she thinks that she has reactions to cleaning solutions. No chest pain. No fevers, chills, syncope, or palpitations. Past medical history, appointments, medications, allergies reviewed. Previous Medical History PAST MEDICAL HISTORY Diagnosis Date - Benign neoplasm of colon - Internal hemorrhoids without mention of complication - Personal history of colonic polyps - Personal history of malignant neoplasm of rectum, rectosigmoid junction, and anus - Unspecified hypothyroidism Previous Surgical History PAST SURGICAL HISTORY Procedure Laterality Date - CLOSE ENTEROSTOMY 12/05/08 - COLONOS W/REM POLYP SNARE 06/30/08 - COLONOSCOP W/ OR W/O [facility] SPEC 04-04-14 - COLONOSCOPY W/BX 01/15/10 Ileocecal mass - COLONOSCOPY W/BX 03/18/11 repeat in - HEMORRHOIDECTOMY,INT/EXT,COMPLX 02-22-13 - LAP CHOLECYSTECT/CHOLANGIOGRAPHY 02-08-10 - LAP COLECTMY W COLOPROC/COLOST 08/05/08 - LAP COLECTMY W/ILEUM/ILEOCOL 02-08-10 right colon - LAP VENT/ABD YURIY PROC COMP 06-17-13 - REVISION OF ILEOSTOMY,COMPLICATED 08-18-08 - SIGMOIDOSCOPY FLEX DIAG 11/28/08 Patent colorectal anastomosis - THYROID LEFT FINE NEEDLE ASPIRATION 10/08/08 Bilateral thyroid nodules aspirated - THYROID RIGHT FINE NEEDLE ASPIRATION 10/08/08 - THYROIDECTOMY 06-23-09 - VAGINAL HYSTERECTOMY Hysterectomy, vaginal Family History FAMILY HISTORY Problem Relation Age of Onset - Heart Mother SC at age 66; CABG x 6 - Heart Sister SC at age 63 - Cancer Sister mouth - Heart Brother arrythmia; implanted debrillator - Hypertension Mother - Hypertension Maternal Grandmother - Hypertension Maternal Aunt - Hypertension Maternal Aunt Patient Allergies ALLERGIES Allergen Reactions - Penicillins Hives - Demerol [Meperidine* mental status change Current Medications Current Outpatient Prescriptions on File Prior to Visit: hydroCHLOROthiazide (HYDRODIURIL, ESIDRIX) 25 mg tablet Take 1 tablet by mouth once daily for 14 days. levothyroxine (SYNTHROID) 112 mcg tablet Take 1 tablet by mouth once daily. Take on empty stomach. For thyroid. Cholecalciferol, Vitamin D3, 5,000 unit cap Take 1 capsule by mouth once daily. No current facility-administered medications on file prior to visit. Social History Social History Marital status: Spouse name: Ekta Years of education: Number of children: 2 Occupational History Occupation Employer Comment [employer]* Social History Main Topics Smoking status: Never Smoker Smokeless tobacco: Never Used Alcohol use: No Drug use: No REVIEW OF SYSTEMS: as above ? Reviewed relevant PMHx, PSHx, Social Hx, current medications and allergies. EXAM: BP 161/77 Pulse 62 Temp 36.3 ?C (97.3 ?F) (Tympanic) Wt 108.4 kg (239 lb) BMI 37.43 kg/m? General Appearance: Well appearing, alert, in no acute distress, well-hydrated, well nourished., Overweight. Oropharynx: Lips, mucosa, and tongue normal, teeth and gums normal, oropharynx normal. Neck: Supple, no adenopathy; thyroid symmetric, normal size, no bruits. Lungs: Lungs clear to auscultation. No wheezing, rhonchi, rales. Heart: RRR without murmur, gallop, or rubs. No ectopy. Abdomen: Normal abdominal exam, Abdomen soft, non-tender. Bowel sounds normal. No masses, organomegaly. Extremities: Pulses: 2+, Edema: Trace to +1 pitting edema of the anterior tibia. Health Maintenance List DTAP,TDAP,TD(1 - Tdap) due on 1963 ZOSTER VACCINE (SHINGRIX)(1 of 2) due on 1994 MAMMOGRAM due on 10/18/2018 DIABETES SCREEN due on 03/15/2019 COLORECTAL CANCER SCREENING,SEE MODIFIER due on 07/11/2020 LIPID SCREEN due on 10/13/2022 BONE DENSITY Completed ADULT PREVNAR-13 Completed INFLUENZA Completed PNEUMOVAX AGE 65 AND OVER WITH 5YR LOOKBACK Completed Data reviewed External BMP, TSH and echocardiogram results reviewed. ASSESSMENT/PLAN: 1. Leg swelling - ICD9: 729.81, ICD10: M79.89 (primary diagnosis) - Cardiac vs venous insufficiency. Patient did have abnormal relaxation of her left ventricle. We will reduce afterload by getting her BP under control. - HYDROCHLOROTHIAZIDE 25 MG TABLET - CONSULT TO CARDIOLOGY 2. Essential hypertension - ICD9: 401.9, ICD10: I10 - newly diagnosed - Begin losartan(Cozaar) - Recommended regular aerobic exercise. - Recommend home blood pressure monitoring, to bring results in on next visit - Goal of BP <130/80 - LOSARTAN 50 MG TABLET - HYDROCHLOROTHIAZIDE 25 MG TABLET 3. Hypothyroidism, unspecified type - ICD9: 244.9, ICD10: E03.9 - Instructed patient on importance of taking on an empty stomach either first thing in the morning or at bedtime. - TSH is suppressed at 0.15 recently. - Decrease Synthroid dose to 0.100 mg - Follow up in 1 months - LEVOTHYROXINE 100 MCG TABLET 4. CKD (chronic kidney disease), stage III - ICD9: 585.3, ICD10: N18.3 - Stable on recent BMP, continue to monitor. 5. DORANTES (dyspnea on exertion) - ICD9: 786.09, ICD10: R06.09 - Reactive airway due to repeat exposure to chemicals (less likely) vs deconditioning vs cardiac etiology. - CONSULT TO CARDIOLOGY 6. Abnormal echocardiogram - ICD9: 793.2, ICD10: R93.1 - Echocardiogram does show abnormal relaxation of the left ventricle. Given her leg swelling, shortness of breath with exertion, we will consult cardiology to determine if stress testing or other testing is recommended. - CONSULT TO CARDIOLOGY Follow up in 1 month for BP follow up. Sooner if needed. Advised ER if having chest pain, worsening SOB. Xochitl Carroll APRN.[place] Referring Provider: XOCHITL CARROLL ([facility]) [[id number]] Allergies As of Date: 01/10/2018 Noted Allergy Reaction PENICILLINS 05/08/2008 4 - Hives DEMEROL (MEPERIDINE (PF)) 12/10/2008 Comments: mental status change Date Reviewed: 01/10/2018 Reviewed by: Xochitl ([facility]) Glen - Fully Assessed Reason for Visit: 2 week follow up [Other] Primary Visit Diagnosis:Leg swelling [M79.89] Other Visit Diagnoses:Essential hypertension [I10] Hypothyroidism, unspecified type [E03.9] CKD (chronic kidney disease), stage III [N18.3] DORANTES (dyspnea on exertion) [R06.09] Abnormal echocardiogram [R93.1] Order(s):losartan (COZAAR) 50 mg tabletTake 1 tablet by mouth once daily.Disp: 30 tabletRfl: 2 hydroCHLOROthiazide (HYDRODIURIL, ESIDRIX) 25 mg tabletTake 1 tablet by mouth once daily.Disp: 30 tabletRfl: 3 levothyroxine (SYNTHROID) 100 mcg tabletTake 1 tablet by mouth once daily. Take on empty stomach. For thyroid.Disp: 30 tabletRfl: 3 CONSULT TO CARDIOLOGY [9003] Order #: [id number]: 1 Prescriptions as of 01/10/2018 Sig: HYDROCHLOROTHIAZIDE 25 MG TAB* Take 1 tablet by mouth once d* LEVOTHYROXINE 100 MCG TABLET Take 1 tablet by mouth once d* CHOLECALCIFEROL (VITAMIN D3) * Take 1 capsule by mouth once * LOSARTAN 50 MG TABLET Take 1 tablet by mouth once d* Problem List As Of Date 01/10/2018 Noted Resolved RECTAL AND ANAL HEMORRHAGE [K62.5] COLONIC CANCER SIGMOID [C18.7] INVALID FOR* FIT/ADJUST INTEST APPLIANCE NOS [V53.5] INVALID FOR* GOITER MULTINODULAR, NONTOXIC [E04.2] INVALID FOR* Gallstones [K80.20] INVALID FOR* Hypothyroidism [E03.9] INVALID FOR* Personal History of Colon Cancer [Z85.038] INVALID FOR* Colon Polyp [K63.5] INVALID FOR* Vitamin D deficiency [E55.9] INVALID FOR* Abdominal pain, unspecified site [R10.9] INVALID FOR*03/17/2016 Incisional hernia [K43.2] INVALID FOR* Unspecified hemorrhoids without mention of comp*INVALID FOR* Mixed hyperlipidemia [E78.2] INVALID FOR* Prescriptions ordered this encounter Disp Refills Start End LOSARTAN 50 MG TABLET 30 t* 2 01/10/2018 Route: ORAL Sig: Take 1 tablet by mouth once daily. HYDROCHLOROTHIAZIDE 25 MG TABLET 30 t* 3 01/10/2018 Route: ORAL Sig: Take 1 tablet by mouth once daily. LEVOTHYROXINE 100 MCG TABLET 30 t* 3 01/10/2018 Route: ORAL Sig: Take 1 tablet by mouth once daily. Take on empty stomach. For thyroid. Medications Discontinued During This Encounter hydroCHLOROthiazide (HYDRODIURIL, ES* 14 t* 0 12/27/2017 01/10/2018 Route: ORAL Sig: Take 1 tablet by mouth once daily for 14 days. Disc: Reason for discontinue is not on file. levothyroxine (SYNTHROID) 112 mcg ta* 30 t* 11 10/18/2017 01/10/2018 Route: ORAL Sig: Take 1 tablet by mouth once daily. Take on empty stomach. For thyroid. Disc: Reason for discontinue is not on file. Disposition: Return in about 1 month (around 02/09/2018) for HTN follow up. Follow-up and Disposition History Recorded Encounter Status:Closed by XOCHITL CARROLL CNP on 01/10/18 ECHO, COMPLETE W/ Observed: 01/08/2018 Status: F Source: [place] CONTRAST 5:28 PM [facility] REPOSITORY [facility] Cardiovascular Services [address] [place] [id number] Echo Complete W/ Contrast 01/08/18 1458 MR#: [id number] Acct: [id number] Name: RADHA ROMANO Rep #: [id number] : 1945 72 From: Inder Estrada MD Attending Dr: KM Mott Status: REG CLI Ordering Dr: Xochitl Carroll Date: 01/08/18 Location: [facility] Sex: F C Admitted: Reason For Study: CHEST DISCOMFORT Procedure This was a 2D Doppler, Color Flow transthoracic echocardiogram. Contrast injection was performed. Exam performed in department. Left Ventricle Normal LV size. Left ventricular systolic function is normal. The estimated ejection fraction is 65 %. Transmitral and pulmonary venous doppler flow suggestive of impaired relaxation of left ventricle. No regional wall motion abnormalities noted. Right Ventricle Normal RV size. Normal systolic function. Atria Normal left atrium. Normal right atrium. Mitral Valve Normal mitral valve. Tricuspid Valve Normal tricuspid valve. Mild (1+) tricuspid valve insufficiency. Pulmonary artery systolic pressure is 34 mmHg. Aortic Valve Trisinus/trileaflet aortic valve. Pulmonic Valve Normal pulmonic valve. Great Vessels Normal aortic root. The pulmonary artery is normal size. Normal inferior vena cava. Pericardium/Pleural No pericardial effusion. Medication 22 gauge I.V. with prn adaptor inserted into left arm. Diluted definity 3ml given slow IV push to enhance endocardial definition. MMode/2D Measurements AND Calculations LVIDd: 4.4 cm IVSd: 0.86 cm Ao root diam: 3.2 cm LVIDs: 3.2 cm LVPWd: 0.76 cm LA dimension: 4.9 cm RVDd: 3.7 cm FS: 27.7 % LAV(MOD-bp): 50.6 ml EDV(MOD-sp4): 77.6 ml EDV(MOD-sp2): 50.6 ml LAV(MOD-bp) Indexed: 23.5 ml/m2 ESV(MOD-sp4): 22.3 ml EF(MOD-sp2): 41.3 % LAV(MOD-sp2): 57.1 ml EF(MOD-sp4): 71.3 % LAV(MOD-sp4): 44.8 ml SV(MOD-sp4): 55.3 ml SV(MOD-sp2): 20.9 ml LA A4 area: 17.9 cm2 RA A4 area: 17.8 cm2 Doppler Measurements AND Calculations MV E max ifeanyi: 68.3 cm/sec Lat Peak E' Ifeanyi: 10.6 cm/sec Med Peak E' Ifeanyi: 5.4 cm/sec E/E' lat: 6.4 E/E' med: 12.7 Ao V2 max: 155.1 cm/sec LV V1 max: 147.7 cm/sec TR max ifeanyi: 280.4 cm/sec Ao max P.6 mmHg LV V1 max P.7 mmHg TR max P.5 mmHg Interpretation Summary Normal LV size. Left ventricular systolic function is normal. The estimated ejection fraction is 65 %. Transmitral and pulmonary venous doppler flow suggestive of impaired relaxation of left ventricle Contrast injection was performed. Ordering Physician: KM Mott Referring Physician: FRANCIS BOTELLO Performed By: Sandra Deutsch, OVIDIO, RVT 01/08/181726 Date Inder Estrada MD CC: RISK INVESTIGATORMitch Carroll; Francis Botello MD Date Dictated: 01/08/18 1458 Date Transcribed: 01/08/181726 Assistant Finance Director: Signed BASIC METABOLIC Collected: 01/08/2018 Status: F Source: CARLOS PROFILE (BMP) 2:29 PM [facility] REPOSITORY TYPE CODE TESTS RESULT OUT OF RANGE REFERENCE UNITS LAB L501.0100 74-106 mg/dL Normal GLU 102 Result Comment: Fasting Glucose result from 100 to 125 mg/dL suggests IMPAIRED HOMEOSTASIS per A.D.A. criteria. Please note revised GLUCOSE reference range effective 2017. LAB L501.1000 7-18 mg/dL High BUN 22 LAB L501.1100 0.55-1.02 mg/dL High CREAT,SERUM 1.18 Result Comment: The validity of the calculated GFR AND GFRAA in patients over 70 years has not been determined. Clinical correlation is essential. LAB L501.1110 >60 mL/min Low EST GFR 48 Result Comment: Non- GFR Calc LAB L501.1115 >60 mL/min Low EST GFR - AA 58 Result Comment: GFR Calc LAB L501.1300 10-20 RATIO Normal BUN/CRE 18.6 LAB L501.2200 8.5-10.1 mg/dL CA Normal 8.6 LAB L501.5300 136-145 mmol/L NA Normal 143 LAB L501.5600 3.5-5.1 mmol/L K Normal 3.6 LAB L501.5900 98-107 mmol/L CL Normal 103 LAB L501.6100 21.0-32.0 mmol/L High CO2 33.0 LAB L501.6200 5-15 Normal GAP 7 Performed By: #### L500.2500, L501.9520 #### [facility] [address]. [place], [place], [id number] THYROID STIM HORMONE Collected: 01/08/2018 Status: F Source: [place] (TSH) 2:29 PM [facility] REPOSITORY TYPE CODE TESTS RESULT OUT OF RANGE REFERENCE UNITS LAB L501.9520 0.358-3.74 uIU/mL Low TSH 0.15 Performed By: #### L500.2500, L501.9520 #### [facility] [address] [facility] [place], [address] PROGRESS Observed: 12/26/2017 Status: COMPLETED Source: [place] 12:20 PM [facility] [place] REPOSITORY HNO ID: [id number] Author: Xochitl Carroll Service: (none) Author Type: Nurse Practitioner Type: Progress Notes Filed: 12/26/2017 1:12 PM Note Text: Chief Complaint Patient presents with: Edema: both ankles, feet , legs , fingers HPI Radha Romano is a 72 year old female who presents here today for Above Complaints. Patient presents to the office for evaluation of swelling of her bilateral ankles, feet, legs and fingers. Weight is stable, 3 pound weight gain in the past 3 months. States that this has been present for approximately 1 week. Leg swelling does improve slightly with elevation in bed at night, but does not go away. Does states that he fingers and wrist feel swollen. States that her watch is tight on her, when it is usually loose. Does work 2 jobs during the day. Does have some complaints of shortness of breath with walking up stairs. States that she has a funny feeling in her chest. States that the sensation is like she is going to cough. States that the discomfort in her chest usually occurs with a deep breath. No complaints of this pain at this time. Does have a complaint of a cough. Does use 1 pillow to prop herself up and sleeps in a lounge chair, but states that this is not new. No syncope. No fevers or chills. No calf pain. Blood pressure is elevated today at 152/82 and 158/90 on recheck. She comments that it is usually well controlled. Does not add salt to her diet. Has used compression stockings in the past, but states that they always roll down and never stay in place. Does have a history of hypothyroidism. Her last TSH was 0.06. Dose of levothyroxine was reduced from 125 mcg to 112 mcg. Past medical history, appointments, medications, allergies reviewed. Previous Medical History PAST MEDICAL HISTORY Diagnosis Date - Benign neoplasm of colon - Internal hemorrhoids without mention of complication - Personal history of colonic polyps - Personal history of malignant neoplasm of rectum, rectosigmoid junction, and anus - Unspecified hypothyroidism Previous Surgical History PAST SURGICAL HISTORY Procedure Laterality Date - CLOSE ENTEROSTOMY 12/05/08 - COLONOS W/REM POLYP SNARE 06/30/08 - COLONOSCOP W/ OR W/O [facility] SPEC 9-12-11 - COLONOSCOPY W/BX 01/15/10 Ileocecal mass - COLONOSCOPY W/BX 03/18/11 repeat in - HEMORRHOIDECTOMY,INT/EXT,COMPLX 02-22-13 - LAP CHOLECYSTECT/CHOLANGIOGRAPHY 02-08-10 - LAP COLECTMY W COLOPROC/COLOST 08/05/08 - LAP COLECTMY W/ILEUM/ILEOCOL 02-08-10 right colon - LAP VENT/ABD YURIY PROC COMP 06-17-13 - REVISION OF ILEOSTOMY,COMPLICATED 08-18-08 - SIGMOIDOSCOPY FLEX DIAG 11/28/08 Patent colorectal anastomosis - THYROID LEFT FINE NEEDLE ASPIRATION 10/08/08 Bilateral thyroid nodules aspirated - THYROID RIGHT FINE NEEDLE ASPIRATION 10/08/08 - THYROIDECTOMY 06-23-09 - VAGINAL HYSTERECTOMY Hysterectomy, vaginal Family History FAMILY HISTORY Problem Relation Age of Onset - Heart Mother SC at age 66; CABG x 6 - Heart Sister SC at age 63 - Cancer Sister mouth - Heart Brother arrythmia; implanted debrillator - Hypertension Mother - Hypertension Maternal Grandmother - Hypertension Maternal Aunt - Hypertension Maternal Aunt Patient Allergies ALLERGIES Allergen Reactions - Penicillins Hives - Demerol [Meperidine* mental status change Current Medications Current Outpatient Prescriptions on File Prior to Visit: levothyroxine (SYNTHROID) 112 mcg tablet Take 1 tablet by mouth once daily. Take on empty stomach. For thyroid. Cholecalciferol, Vitamin D3, 5,000 unit cap Take 1 capsule by mouth once daily. No current facility-administered medications on file prior to visit. Social History Social History Marital status: Spouse name: Ekta Years of education: Number of children: 2 Occupational History Occupation Employer Comment [employer]* Social History Main Topics Smoking status: Never Smoker Smokeless tobacco: Never Used Alcohol use: No Drug use: No REVIEW OF SYSTEMS: as above ? Reviewed relevant PMHx, PSHx, Social Hx, current medications and allergies. EXAM: BP 152/82 Pulse 76 Temp 36.6 ?C (97.8 ?F) (Tympanic) Wt 110.2 kg (243 lb) BMI 38.06 kg/m? General Appearance: Well appearing, alert, in no acute distress, well-hydrated, well nourished, obese. Lungs: Lungs clear to auscultation. No wheezing, rhonchi, rales. Heart: RRR without murmur, gallop, or rubs. No ectopy. Extremities: Bilateral lower extremities have +2 pitting, pedal edema that extends to the ankle area and dorsal side of bilateral feet. Fingers are swollen and watch band is leaving a impression on the left wrist. Health Maintenance List DTAP,TDAP,TD(1 - Tdap) due on 1963 MAMMOGRAM due on 10/18/2018 DIABETES SCREEN due on 03/15/2019 COLORECTAL CANCER SCREENING,SEE MODIFIER due on 07/11/2020 LIPID SCREEN due on 10/13/2022 BONE DENSITY Completed ADULT PREVNAR-13 Completed INFLUENZA Completed PNEUMOVAX AGE 65 AND OVER WITH 5YR LOOKBACK Completed Data reviewed External labs 09/2017 reviewed. ASSESSMENT/PLAN: 1. Chest discomfort - ICD9: 786.59, ICD10: R07.89 (primary diagnosis) Atypical chest pain, symptoms are not consistent with cardiac ischemia due to nonexertional nature of symptom possible etiology include Costochondritis/chest wall pain, musculoskeletal and Anxiety - Electrocardiogram: An ECG today showed normal sinus rhythm at 63 BPM, AK interval 146 ms, normal QRS, normal ST-T, QT 431 ms - Lab evaluation BMP and TSH - Chest X-ray today. - Follow up 2 weeks - ECG COMPLETE W INTERPRETATION - XR CHEST 2V FRONTAL/LAT - ECHO - Advised ER if experiencing persistent chest pain, shortness of breath or syncope. 2. Leg swelling - ICD9: 729.81, ICD10: M79.89 - Venous incompetency vs swelling from heat,humidity. Will treat with 7 days of lasix, follow up in 2 weeks. - BASIC METABOLIC PNL - ECHO - FUROSEMIDE 40 MG TABLET 3. DORANTES (dyspnea on exertion) - ICD9: 786.09, ICD10: R06.09 - Only occurring with walking up stairs, deconditioning? Given other symptoms, will get echocardiogram. - ECHO 4. Elevated blood pressure reading without diagnosis of hypertension - ICD9: 796.2, ICD10: R03.0 Transient BP elevation - Encouraged dietary sodium restriction/DASH diet - Recommended regular aerobic exercise. - Recheck in 2 weeks, sooner if needed. - BASIC METABOLIC PNL 5. Hypothyroidism, unspecified type - ICD9: 244.9, ICD10: E03.9 - Instructed patient on importance of taking on an empty stomach either first thing in the morning or at bedtime. - check TSH today - continue current dose of Synthroid 0.112 mg - TSH BLD ECG normal today. Get chest x-ray, labs, and echocardiogram. Follow up in 2 weeks. Xochitl Carroll APRN.CNP CNOV Observed: 12/26/2017 Status: COMPLETED Source: [place] 12:20 PM [facility] REPOSITORY [facility] RADHA ROM[facility] ([id number]) 1945 F Date Time Provider Department 12/26/17 12:20 PM XO[facility]ARR[facility] During your visit today, we recorded the following information about you: Temperature Pulse Blood pressure Weight 97.8 degrees 76/minute 158/90 110.2 kg Xochitl Carroll APRN.CNP 12/26/2017 1:12 PM Signed Chief Complaint Patient presents with: Edema: both ankles, feet , legs , fingers HPI Radha Romano is a 72 year old female who presents here today for Above Complaints. Patient presents to the office for evaluation of swelling of her bilateral ankles, feet, legs and fingers. Weight is stable, 3 pound weight gain in the past 3 months. States that this has been present for approximately 1 week. Leg swelling does improve slightly with elevation in bed at night, but does not go away. Does states that he fingers and wrist feel swollen. States that her watch is tight on her, when it is usually loose. Does work 2 jobs during the day. Does have some complaints of shortness of breath with walking up stairs. States that she has a funny feeling in her chest. States that the sensation is like she is going to cough. States that the discomfort in her chest usually occurs with a deep breath. No complaints of this pain at this time. Does have a complaint of a cough. Does use 1 pillow to prop herself up and sleeps in a lounge chair, but states that this is not new. No syncope. No fevers or chills. No calf pain. Blood pressure is elevated today at 152/82 and 158/90 on recheck. She comments that it is usually well controlled. Does not add salt to her diet. Has used compression stockings in the past, but states that they always roll down and never stay in place. Does have a history of hypothyroidism. Her last TSH was 0.06. Dose of levothyroxine was reduced from 125 mcg to 112 mcg. Past medical history, appointments, medications, allergies reviewed. Previous Medical History PAST MEDICAL HISTORY Diagnosis Date - Benign neoplasm of colon - Internal hemorrhoids without mention of complication - Personal history of colonic polyps - Personal history of malignant neoplasm of rectum, rectosigmoid junction, and anus - Unspecified hypothyroidism Previous Surgical History PAST SURGICAL HISTORY Procedure Laterality Date - CLOSE ENTEROSTOMY 12/05/08 - COLONOS W/REM POLYP SNARE 06/30/08 - COLONOSCOP W/ OR W/O [facility] SPEC 04-04-14 - COLONOSCOPY W/BX 01/15/10 Ileocecal mass - COLONOSCOPY W/BX 03/18/11 repeat in - HEMORRHOIDECTOMY,INT/EXT,COMPLX 02-22-13 - LAP CHOLECYSTECT/CHOLANGIOGRAPHY 02-08-10 - LAP COLECTMY W COLOPROC/COLOST 08/05/08 - LAP COLECTMY W/ILEUM/ILEOCOL 02-08-10 right colon - LAP VENT/ABD YURIY PROC COMP 06-17-13 - REVISION OF ILEOSTOMY,COMPLICATED 08-18-08 - SIGMOIDOSCOPY FLEX DIAG 11/28/08 Patent colorectal anastomosis - THYROID LEFT FINE NEEDLE ASPIRATION 10/08/08 Bilateral thyroid nodules aspirated - THYROID RIGHT FINE NEEDLE ASPIRATION 10/08/08 - THYROIDECTOMY 06-23-09 - VAGINAL HYSTERECTOMY Hysterectomy, vaginal Family History FAMILY HISTORY Problem Relation Age of Onset - Heart Mother SC at age 66; CABG x 6 - Heart Sister SC at age 63 - Cancer Sister mouth - Heart Brother arrythmia; implanted debrillator - Hypertension Mother - Hypertension Maternal Grandmother - Hypertension Maternal Aunt - Hypertension Maternal Aunt Patient Allergies ALLERGIES Allergen Reactions - Penicillins Hives - Demerol [Meperidine* mental status change Current Medications Current Outpatient Prescriptions on File Prior to Visit: levothyroxine (SYNTHROID) 112 mcg tablet Take 1 tablet by mouth once daily. Take on empty stomach. For thyroid. Cholecalciferol, Vitamin D3, 5,000 unit cap Take 1 capsule by mouth once daily. No current facility-administered medications on file prior to visit. Social History Social History Marital status: Spouse name: Ekta Years of education: Number of children: 2 Occupational History Occupation Employer Comment [employer]* Social History Main Topics Smoking status: Never Smoker Smokeless tobacco: Never Used Alcohol use: No Drug use: No REVIEW OF SYSTEMS: as above ? Reviewed relevant PMHx, PSHx, Social Hx, current medications and allergies. EXAM: BP 152/82 Pulse 76 Temp 36.6 ?C (97.8 ?F) (Tympanic) Wt 110.2 kg (243 lb) BMI 38.06 kg/m? General Appearance: Well appearing, alert, in no acute distress, well-hydrated, well nourished, obese. Lungs: Lungs clear to auscultation. No wheezing, rhonchi, rales. Heart: RRR without murmur, gallop, or rubs. No ectopy. Extremities: Bilateral lower extremities have +2 pitting, pedal edema that extends to the ankle area and dorsal side of bilateral feet. Fingers are swollen and watch band is leaving a impression on the left wrist. Health Maintenance List DTAP,TDAP,TD(1 - Tdap) due on 1963 MAMMOGRAM due on 10/18/2018 DIABETES SCREEN due on 03/15/2019 COLORECTAL CANCER SCREENING,SEE MODIFIER due on 07/11/2020 LIPID SCREEN due on 10/13/2022 BONE DENSITY Completed ADULT PREVNAR-13 Completed INFLUENZA Completed PNEUMOVAX AGE 65 AND OVER WITH 5YR LOOKBACK Completed Data reviewed External labs 09/2017 reviewed. ASSESSMENT/PLAN: 1. Chest discomfort - ICD9: 786.59, ICD10: R07.89 (primary diagnosis) Atypical chest pain, symptoms are not consistent with cardiac ischemia due to nonexertional nature of symptom possible etiology include Costochondritis/chest wall pain, musculoskeletal and Anxiety - Electrocardiogram: An ECG today showed normal sinus rhythm at 63 BPM, AK interval 146 ms, normal QRS, normal ST-T, QT 431 ms - Lab evaluation BMP and TSH - Chest X-ray today. - Follow up 2 weeks - ECG COMPLETE W INTERPRETATION - XR CHEST 2V FRONTAL/LAT - ECHO - Advised ER if experiencing persistent chest pain, shortness of breath or syncope. 2. Leg swelling - ICD9: 729.81, ICD10: M79.89 - Venous incompetency vs swelling from heat,humidity. Will treat with 7 days of lasix, follow up in 2 weeks. - BASIC METABOLIC PNL - ECHO - FUROSEMIDE 40 MG TABLET 3. DORANTES (dyspnea on exertion) - ICD9: 786.09, ICD10: R06.09 - Only occurring with walking up stairs, deconditioning? Given other symptoms, will get echocardiogram. - ECHO 4. Elevated blood pressure reading without diagnosis of hypertension - ICD9: 796.2, ICD10: R03.0 Transient BP elevation - Encouraged dietary sodium restriction/DASH diet - Recommended regular aerobic exercise. - Recheck in 2 weeks, sooner if needed. - BASIC METABOLIC PNL 5. Hypothyroidism, unspecified type - ICD9: 244.9, ICD10: E03.9 - Instructed patient on importance of taking on an empty stomach either first thing in the morning or at bedtime. - check TSH today - continue current dose of Synthroid 0.112 mg - TSH BLD ECG normal today. Get chest x-ray, labs, and echocardiogram. Follow up in 2 weeks. Xochitl Carroll APRN.[facility] Referring Provider: SELF [[id number]] Allergies As of Date: 12/26/2017 Noted Allergy Reaction PENICILLINS 05/08/2008 4 - Hives DEMEROL (MEPERIDINE (PF)) 12/10/2008 Comments: mental status change Date Reviewed: 12/26/2017 Reviewed by: Xochitl ([facility]) [place] - Fully Assessed Reason for Visit: Edema [39] Cmt: both ankles, feet , legs , fingers Primary Visit Diagnosis:Chest discomfort [R07.89] Other Visit Diagnoses:Leg swelling [M79.89] DORANTES (dyspnea on exertion) [R06.09] Elevated blood pressure reading without diagnosis of hypertension [R03.0] Hypothyroidism, unspecified type [E03.9] Order(s):BASIC METABOLIC PNL [SQBMP] Order #: [id number] FUTURE ECG COMPLETE W INTERPRETATION [ECG01] Order #: [id number] FUTURE XR CHEST 2V FRONTAL/LAT [8191785] Order #: [id number] FUTURE ECHO [124168] Order #: [id number]: 1 FUTURE TSH BLD [SQTSH] Order #: [id number] FUTURE furosemide (LASIX) 40 mg tabletTake 1 tablet by mouth once daily for 7 days.Disp: 7 tabletRfl: 0 Prescriptions as of 12/26/2017 Sig: LEVOTHYROXINE 112 MCG TABLET Take 1 tablet by mouth once d* CHOLECALCIFEROL (VITAMIN D3) * Take 1 capsule by mouth once * FUROSEMIDE 40 MG TABLET Take 1 tablet by mouth once d* Problem List As Of Date 12/26/2017 Noted Resolved RECTAL AND ANAL HEMORRHAGE [K62.5] COLONIC CANCER SIGMOID [C18.7] INVALID FOR* FIT/ADJUST INTEST APPLIANCE NOS [V53.5] INVALID FOR* GOITER MULTINODULAR, NONTOXIC [E04.2] INVALID FOR* Gallstones [K80.20] INVALID FOR* Hypothyroidism [E03.9] INVALID FOR* Personal History of Colon Cancer [Z85.038] INVALID FOR* Colon Polyp [K63.5] INVALID FOR* Vitamin D deficiency [E55.9] INVALID FOR* Abdominal pain, unspecified site [R10.9] INVALID FOR*03/17/2016 Incisional hernia [K43.2] INVALID FOR* Unspecified hemorrhoids without mention of comp*INVALID FOR* Mixed hyperlipidemia [E78.2] INVALID FOR* Prescriptions ordered this encounter Disp Refills Start End FUROSEMIDE 40 MG TABLET 7 ta* 0 12/26/2017 01/02/2018 Route: ORAL Sig: Take 1 tablet by mouth once daily for 7 days. Medications Discontinued During This Encounter fluticasone (FLONASE) 50 mcg/actuati* 1 Rylan* 5 04/12/2017 12/26/2017 Route: EACH NOSTRIL Sig: Use 2 Sprays in each nostril once daily. Disc: Discontinued by Patient Disposition: Return in about 2 weeks (around 01/09/2018) for Blood pressure, leg swelling follow up . Follow-up and Disposition History Recorded Encounter Status:Closed by XOCHITL CARROLL CNP on 12/26/17 ORTHOPEDIC VISIT Observed: 10/30/2017 Status: F Source: [place] REPORT 7:[address] [facility] [address] [place] [id number] OFFICE VISIT Date of Service: 10/26/17 MR#: [id number] Acct: [id number] Name: RADHA ROMANO Rep #: [id number] : 1945 Provider: Chong Renard DO Age/Sex: 72/F Location: [facility].S[facility] Status: Signed Intake Intake Visit Reasons: LEFT SHOULDER Is patient in pain?: No Allergies Penicillins Allergy (Verified 10/05/17 10:03) Hives meperidine HCl [From Demerol] Adverse Reaction (Verified 10/05/17 10:03) Other Medications Levothyroxine [Synthroid] 112 mcg PO DAILY 06/03/13 [History Confirmed 09/21/17] Hydrocodone Bitart/Apap 5-325 [[place] 5MG-325MG] 1 tab PO Q6H PRN PRN #14 tab 08/20/17 [Rx Confirmed 09/21/17] PFSH Medical History History of colon cancer (Inactive) Surgical History History of hernia repair (Inactive) gallbladder removed (Inactive) Social History Smoking Status: Never smoker alcohol intake: never HPI LEFT SHOULDER: Details: RADHA ROMANO is a 72 year old F here today for a followup on her left shoulder. She states that she is feeling good and having no pain. She has good range of motion and strength. Patient has finished physical therapy and does exercises at home. Patient feels like she is ready to return to work. Denies numbness, tingling or other associated symptoms. ROS Const Reports system reviewed and no additional complaints, except as docu Eyes Reports system reviewed and no additional complaints, except as docu ENT Reports system reviewed and no additional complaints, except as docu Card Reports system reviewed and no additional complaints, except as docu Resp Reports system reviewed and no additional complaints, except as docu GI Reports system reviewed and no additional complaints, except as docu Reports system reviewed and no additional complaints, except as docu Skin/Breast Reports system reviewed and no additional complaints, except as docu Neuro Yes system reviewed and no additional complaints, except as docu Psych Reports system reviewed and no additional complaints, except as docu Endo Reports system reviewed and no additional complaints, except as docu Ortho Exam Right Shoulder Skin/Wound: Yes CDI Contralateral Normal: Yes Testing: Positive AROM-External Rotation at 90 0-60, PROM- External Rotation at side 0-60, PROM-Forward Elevation 0-180, PROM-External Rotation at 90 0-60, AROM-External Rotation at side 0-60 and AROM-Forward Elevation 0-180 Internal Rotation: Tip of Scapula Left Shoulder Skin/Wound: Yes CDI Contralateral Normal: Yes Testing: Yes AROM-Forward Elevation 0-180, Yes AROM-External Rotation at side 0-60, Yes PROM-External Rotation at side 0-60, Yes AROM-External Rotation at 90 0-60, Yes PROM-Forward Elevation 0-180, Yes PROM-External Rotation at 90 0-60, No Hawkin's, No Neer's, No Speed's, No TTP Biceps, No TTP AC Joint, No Drop Arm, No Yergason's, No Apprehension Test, No Sulcus Sign, No translation, No empty can Internal Rotation: Tip of Scapula SHOULDER: Alert and oriented 3 no acute distress. I contact and affect. Otherwise intact from C5-T2 distributions. She has positive pulses. Gross motor function 5 out of 5 cuff strength 5 out of 5. Nontender palpation across the distal clavicle Assessment AND Plan Problems 1. Separation of left acromioclavicular joint, type 1, subsequent encounter S43.102D Plan Assessment: Grade 1 AC separation shoulder contusion. Doing well. Plan: This point time patient requests return to full duty. No will be provided. Follow-up on a as needed basis. Any major issues return. Coding Level of Care Code Off vis,est,level 3 Diagnoses Separation of left acromioclavicular joint, type 1, subsequent encounter S43.102D Encounter type: subsequent encounter 10/30/17 0755 <Electronically signed by Chong Glynn DO> Date Chong Glynn DO Cosigner Signature: Date (if applicable) CC: PT D/C SUMMARY (1) Observed: 10/20/2017 Status: F Source: [place] 12:30 PM [facility] REPOSITORY [facility] [address] [place] [address]. [address] [place] [address] Fax REHABILITATION SERVICES DISCHARGE SUMMARY MR#: [id number] Acct: [id number] Name: RADHA ROMANO Rep #: [id number] : 1945 72 From: Cert. ANNEL Curtis PT, OCS Referring Dr.: Chong Glynn DO Status: REG RCR Insurance: [facility] COMP MANAGEMENT [facility] - PT D/C Summary It has been my pleasure to treat RADHA ROMANO under orders from Chong Glynn DO, for the diagnosis of DISLOCATION OF LEFT ACROMIOCLAVICLE JOINT for a total of 13 visit(s). Discharge Date: Please see the following information for a summary of their discharge status. - Subjective Subjective: Patient doing ready to RTW. NO PAIN. ABLE TO DO ALL ADLS' ACTIVITIES - Pain Left Shoulder Pain Intensity (Out of 10): 0 - Overall Improvement % Improvement: 100 - Objective Objective/Function: POSTURE: mild foward posture. NEURO: denies parathesia/tingling. AROM: flexion 160 ,abd 160,ER 90 ,IR 75. MMT: 4/5 RTC ,DELTOID 4-/5. FUNCTIONAL TEST : WNL - Goals Goal 1:: Independant with HEP Goal Progress: Goal Met Goal 2:: Patient decrease pain left shoulder by 60% or greater to improve function Goal Progress: Goal Met Goal 3:: Patient increase AROM shoulder flexion /abd 150 degrees and ER 90 to improve function above 90 degrees for ADL'S and job demnads Goal Progress: Goal Met Goal 4:: Patient increase strength left shoulder 4/5 to improve function with ADL'S and return to job demands. Goal Progress: Goal Met Goal 5:: Patient be able to perform ADL'S ,housework tasks and RTW with min to no limitations Goal Progress: Goal Met - Plan Plan: D/C MET GOALS. RTW - D/C Information If there are questions or concerns regarding this patient's physical therapy, please feel free to call me at [phone]. Thank you for the referral of this patient. Sincerely, Rambo Frederick PT, <Electronically signed by Cert. ANNEL Curtis PT, OCS> 10/20/17 1230 CC: Francis Botello MD; Chong Glynn DO JLA Signed CNOV Observed: 10/18/2017 Status: COMPLETED Source: [place] 6:40 PM [facility] RE[facility] Office Visit ([facility]) RADHA ROMANO ([id number]) 1945 F Date Time Provider Department 10/18/17 6:40 PM FRANCIS BOTELLO [facility] During your visit today, we recorded the following information about you: Pulse Respiration Blood pressure Weight 66/minute 14/minute 120/78 108.9 kg Francis Botello MD 10/18/2017 7:44 PM Signed Chief Complaint Patient presents with: F/U 6 Month HPI Radha Romano is a 72 year old female who presents here today for 6 month follow up. Took a fall in Jul and hurt left shoulder, is seeing Dr. Renard Yeh. Doing physical therapy, tomorrow last session. Hypothyroidism: is taking Levoxyl 125 mcg daily. Vitamin D Deficiency: is on Vitamin D 3 taking 5,000 mg. Past medical history, appointments, medications, allergies reviewed. Previous Medical History PAST MEDICAL HISTORY Diagnosis Date - Benign neoplasm of colon - Internal hemorrhoids without mention of complication - Personal history of colonic polyps - Personal history of malignant neoplasm of rectum, rectosigmoid junction, and anus - Unspecified hypothyroidism Previous Surgical History PAST SURGICAL HISTORY Procedure Laterality Date - CLOSE ENTEROSTOMY 12/05/08 - COLONOS W/REM POLYP SNARE 06/30/08 - COLONOSCOP W/ OR W/O [facility] SPEC 04-04-14 - COLONOSCOPY W/BX 01/15/10 Ileocecal mass - COLONOSCOPY W/BX 03/18/11 repeat in - HEMORRHOIDECTOMY,INT/EXT,COMPLX 02-22-13 - LAP CHOLECYSTECT/CHOLANGIOGRAPHY 02-08-10 - LAP COLECTMY W COLOPROC/COLOST 08/05/08 - LAP COLECTMY W/ILEUM/ILEOCOL 02-08-10 right colon - LAP VENT/ABD YURIY PROC COMP 06-17-13 - REVISION OF ILEOSTOMY,COMPLICATED 08-18-08 - SIGMOIDOSCOPY FLEX DIAG 11/28/08 Patent colorectal anastomosis - THYROID LEFT FINE NEEDLE ASPIRATION 10/08/08 Bilateral thyroid nodules aspirated - THYROID RIGHT FINE NEEDLE ASPIRATION 10/08/08 - THYROIDECTOMY 06-23-09 - VAGINAL HYSTERECTOMY Hysterectomy, vaginal Family History FAMILY HISTORY Problem Relation Age of Onset - Heart Mother SC at age 66; CABG x 6 - Heart Sister SC at age 63 - Cancer Sister mouth - Heart Brother arrythmia; implanted debrillator - Hypertension Mother - Hypertension Maternal Grandmother - Hypertension Maternal Aunt - Hypertension Maternal Aunt Patient Allergies ALLERGIES Allergen Reactions - Penicillins Hives - Demerol [Meperidine* mental status change Current Medications Current Outpatient Prescriptions on File Prior to Visit: levothyroxine (LEVOXYL) 125 mcg tablet Take 1 tablet by mouth once daily. Take on empty stomach. For thyroid. fluticasone (FLONASE) 50 mcg/actuation nasal spray Use 2 Sprays in each nostril once daily. Cholecalciferol, Vitamin D3, 5,000 unit cap Take 1 capsule by mouth once daily. No current facility-administered medications on file prior to visit. Social History Social History Marital status: Spouse name: Ekta Years of education: Number of children: 2 Occupational History Occupation Employer Comment [employer]* Social History Main Topics Smoking status: Never Smoker Smokeless status: Never Used Alcohol use: No Drug use: No EXAM: BP 120/78 Pulse 66 Resp 14 Wt 108.9 kg (240 lb) BMI 37.59 kg/m2 General Appearance: Well appearing, alert, in no acute distress, well-hydrated, well nourished.. Lungs: Lungs clear to auscultation. No wheezing, rhonchi, rales. Heart: RRR without murmur, gallop, or rubs. No ectopy. Health Maintenance List MAMMOGRAM due on 10/18/2018 DIABETES SCREEN due on 03/15/2019 COLORECTAL CANCER SCREENING,SEE MODIFIER due on 07/11/2020 LIPID SCREEN due on 10/13/2022 TETANUS due on 05/13/2024 BONE DENSITY Completed ADULT PREVNAR-13 Completed INFLUENZA Completed PNEUMOVAX AGE 65 AND OVER WITH 5YR LOOKBACK Completed Data reviewed Labs done at [facility] on 10/13/17-Vitamin D 29.3, chol-200, trig- 118, HDL-49, LDL-127, TSH-0.06 ASSESSMENT/PLAN: 1. Hypothyroidism, unspecified type - ICD9: 244.9, ICD10: E03.9 (primary diagnosis) - Instructed patient on importance of taking on an empty stomach either first thing in the morning or at bedtime. - Decrease Synthroid dose to 0.112 mg - LEVOTHYROXINE 112 MCG TABLET - TSH BLD 2. Vitamin D deficiency - ICD9: 268.9, ICD10: E55.9 - VITAMIN D 25 HYDROXY Follow up in 6 months with labs prior Francis Botello MD The documentation for this note was completed by Carina Hugo Ma acting as scribe for Francis Botello MD. October 18, 2017 6:32 PM. Referring Provider: FRANCIS BOTELLO [[id number]] Allergies As of Date: 10/18/2017 Noted Allergy Reaction PENICILLINS 05/08/2008 4 - Hives DEMEROL (MEPERIDINE (PF)) 12/10/2008 Comments: mental status change Date Reviewed: 10/18/2017 Reviewed by: Carina Hugo Ma - Fully Assessed Reason for Visit: F/U 6 Month [444] Primary Visit Diagnosis:Hypothyroidism, unspecified type [E03.9] Other Visit Diagnosis:Vitamin D deficiency [E55.9] Order(s):levothyroxine (SYNTHROID) 112 mcg tabletTake 1 tablet by mouth once daily. Take on empty stomach. For thyroid.Disp: 30 tabletRfl: 11 TSH BLD [SQTSH] Order #: [id number] FUTURE VITAMIN D 25 HYDROXY [SQVITD] Order #: [id number] FUTURE Prescriptions as of 10/18/2017 Sig: LEVOTHYROXINE 112 MCG TABLET Take 1 tablet by mouth once d* FLUTICASONE 50 MCG/ACTUATION * Use 2 Sprays in each nostril * CHOLECALCIFEROL (VITAMIN D3) * Take 1 capsule by mouth once * Problem List As Of Date 10/18/2017 Noted Resolved RECTAL AND ANAL HEMORRHAGE [K62.5] COLONIC CANCER SIGMOID [C18.7] INVALID FOR* FIT/ADJUST INTEST APPLIANCE NOS [V53.5] INVALID FOR* GOITER MULTINODULAR, NONTOXIC [E04.2] INVALID FOR* Gallstones [K80.20] INVALID FOR* Hypothyroidism [E03.9] INVALID FOR* Personal History of Colon Cancer [Z85.038] INVALID FOR* Colon Polyp [K63.5] INVALID FOR* Vitamin D deficiency [E55.9] INVALID FOR* Abdominal pain, unspecified site [R10.9] INVALID FOR*03/17/2016 Incisional hernia [K43.2] INVALID FOR* Unspecified hemorrhoids without mention of comp*INVALID FOR* Mixed hyperlipidemia [E78.2] INVALID FOR* Prescriptions ordered this encounter Disp Refills Start End LEVOTHYROXINE 112 MCG TABLET 30 t* 11 10/18/2017 Route: ORAL Sig: Take 1 tablet by mouth once daily. Take on empty stomach. For thyroid. Medications Discontinued During This Encounter levothyroxine (LEVOXYL) 125 mcg tabl* 30 t* 11 04/12/2017 10/18/2017 Route: ORAL Sig: Take 1 tablet by mouth once daily. Take on empty stomach. For thyroid. Disc: Reason for discontinue is not on file. Disposition: Return in about 6 months (around 04/20/2018). Follow-up and Disposition History Recorded Encounter Status:Closed by FRANCIS BOTELLO MD on 10/18/17 PROGRESS Observed: 10/18/2017 Status: COMPLETED Source: [place] 6:32 PM [facility] REPOSITORY HNO ID: [id number] Author: Francis Botello Service: (none) Author Type: Physician Type: Progress Notes Filed: 10/18/2017 7:44 PM Note Text: Chief Complaint Patient presents with: F/U 6 Month HPI Radha Romano is a 72 year old female who presents here today for 6 month follow up. Took a fall in Jul and hurt left shoulder, is seeing Dr. Renard Yeh. Doing physical therapy, tomorrow last session. Hypothyroidism: is taking Levoxyl 125 mcg daily. Vitamin D Deficiency: is on Vitamin D 3 taking 5,000 mg. Past medical history, appointments, medications, allergies reviewed. Previous Medical History PAST MEDICAL HISTORY Diagnosis Date - Benign neoplasm of colon - Internal hemorrhoids without mention of complication - Personal history of colonic polyps - Personal history of malignant neoplasm of rectum, rectosigmoid junction, and anus - Unspecified hypothyroidism Previous Surgical History PAST SURGICAL HISTORY Procedure Laterality Date - CLOSE ENTEROSTOMY 12/05/08 - COLONOS W/REM POLYP SNARE 06/30/08 - COLONOSCOP W/ OR W/O [facility] SPEC 04-04-14 - COLONOSCOPY W/BX 01/15/10 Ileocecal mass - COLONOSCOPY W/BX 03/18/11 repeat in - HEMORRHOIDECTOMY,INT/EXT,COMPLX 02-22-13 - LAP CHOLECYSTECT/CHOLANGIOGRAPHY 02-08-10 - LAP COLECTMY W COLOPROC/COLOST 08/05/08 - LAP COLECTMY W/ILEUM/ILEOCOL 02-08-10 right colon - LAP VENT/ABD YURIY PROC COMP 06-17-13 - REVISION OF ILEOSTOMY,COMPLICATED 08-18-08 - SIGMOIDOSCOPY FLEX DIAG 11/28/08 Patent colorectal anastomosis - THYROID LEFT FINE NEEDLE ASPIRATION 10/08/08 Bilateral thyroid nodules aspirated - THYROID RIGHT FINE NEEDLE ASPIRATION 10/08/08 - THYROIDECTOMY 06-23-09 - VAGINAL HYSTERECTOMY Hysterectomy, vaginal Family History FAMILY HISTORY Problem Relation Age of Onset - Heart Mother SC at age 66; CABG x 6 - Heart Sister SC at age 63 - Cancer Sister mouth - Heart Brother arrythmia; implanted debrillator - Hypertension Mother - Hypertension Maternal Grandmother - Hypertension Maternal Aunt - Hypertension Maternal Aunt Patient Allergies ALLERGIES Allergen Reactions - Penicillins Hives - Demerol [Meperidine* mental status change Current Medications Current Outpatient Prescriptions on File Prior to Visit: levothyroxine (LEVOXYL) 125 mcg tablet Take 1 tablet by mouth once daily. Take on empty stomach. For thyroid. fluticasone (FLONASE) 50 mcg/actuation nasal spray Use 2 Sprays in each nostril once daily. Cholecalciferol, Vitamin D3, 5,000 unit cap Take 1 capsule by mouth once daily. No current facility-administered medications on file prior to visit. Social History Social History Marital status: Spouse name: Ekta Years of education: Number of children: 2 Occupational History Occupation Employer Comment [employer]* Social History Main Topics Smoking status: Never Smoker Smokeless status: Never Used Alcohol use: No Drug use: No EXAM: BP 120/78 Pulse 66 Resp 14 Wt 108.9 kg (240 lb) BMI 37.59 kg/m2 General Appearance: Well appearing, alert, in no acute distress, well-hydrated, well nourished.. Lungs: Lungs clear to auscultation. No wheezing, rhonchi, rales. Heart: RRR without murmur, gallop, or rubs. No ectopy. Health Maintenance List MAMMOGRAM due on 10/18/2018 DIABETES SCREEN due on 03/15/2019 COLORECTAL CANCER SCREENING,SEE MODIFIER due on 07/11/2020 LIPID SCREEN due on 10/13/2022 TETANUS due on 05/13/2024 BONE DENSITY Completed ADULT PREVNAR-13 Completed INFLUENZA Completed PNEUMOVAX AGE 65 AND OVER WITH 5YR LOOKBACK Completed Data reviewed Labs done at [facility] on 10/13/17-Vitamin D 29.3, chol-200, trig- 118, HDL-49, LDL-127, TSH-0.06 ASSESSMENT/PLAN: 1. Hypothyroidism, unspecified type - ICD9: 244.9, ICD10: E03.9 (primary diagnosis) - Instructed patient on importance of taking on an empty stomach either first thing in the morning or at bedtime. - Decrease Synthroid dose to 0.112 mg - LEVOTHYROXINE 112 MCG TABLET - TSH BLD 2. Vitamin D deficiency - ICD9: 268.9, ICD10: E55.9 - VITAMIN D 25 HYDROXY Follow up in 6 months with labs prior Francis Botello MD The documentation for this note was completed by Carina Hugo Ma acting as scribe for Francis Botello MD. October 18, 2017 6:32 PM. VITAMIN D,25 HYDROXY Collected: 10/13/2017 Status: F Source: [place] 12:18 PM [facility] REPOSITORY TYPE CODE TESTS RESULT OUT OF REFERENCE UNITS RANGE LAB L506.1000 29.95-100.01 ng/mL Low Vitamin D 29.3 25-OH Result Comment: Vitamin D 25(OH) Status Range Deficiency <20 ng/mL (50nmol/L) Insuffciency 20 - 30 ng/mL (50 - 75 nmol/L) Sufficiency 30 - 100 ng/mL (75 - 250 nmol/L) Toxicity >100 ng/mL (>250 nmol/L) Performed By: #### L506.1000 #### [facility] [address] [place], [address] LIPID PROFILE Collected: 10/13/2017 Status: F Source: [place] 12:18 PM [facility] REPOSITORY TYPE CODE TESTS RESULT OUT OF RANGE REFERENCE UNITS LAB L501.4900 200 mg/dL Normal CHOL 200 Result Comment: <200 mg/dL Desirable 200-240 mg/dL Borderline >240 mg/dL High Risk LAB L501.5000 mg/dL Normal TRIG 118 Result Comment: The drugs N-Acetylcysteine and Metamizole may falsely depress this assay. Serum Triglycerides Reference Interval Normal <150 mg/dL Borderline high 150 - 199 mg/dL High 200 - 499 mg/dL Very High > or = 500 mg/dL LAB L501.6400 mg/dL Normal HDL 49 Result Comment: The drugs N-Acetylcysteine and Metamizole may falsely depress this assay. Reference Range HDL <40 mg/dL Low HDL Cholesterol HDL >or= 60 mg/dL High HDL Cholesterol LAB L501.6500 0-130 mg/dL Normal LDL 127 LAB L501.6600 5-40 mg/dL Normal VLDL 24 Performed By: #### L500.4100, L501.9520 #### [facility] [address] [facility], [address] THYROID STIM HORMONE Collected: 10/13/2017 Status: F Source: [place] (TSH) 12:18 PM [facility] REPOSITORY TYPE CODE TESTS RESULT OUT OF RANGE REFERENCE UNITS LAB L501.9520 0.358-3.74 uIU/mL Low TSH 0.06 Performed By: #### L500.4100, L501.9520 #### [facility] [address] [facility], [address] ORTHOPEDIC VISIT Observed: 10/11/2017 Status: F Source: [place] RE[place] 4:27 PM [facility] REPOSITORY [facility] [address] [place] [id number] OFFICE VISIT Date of Service: 10/05/17 MR#: [id number] Acct: [id number] Name: RADHA ROMANO Rep #: [id number] : 1945 Provider: Chong Glynn DO Age/Sex: 72/F [place] [facility] [place]: Signed Intake Intake Visit Reasons: LEFT SHOULDER Is patient in pain?: Yes Allergies Penicillins Allergy (Verified 10/05/17 10:03) Hives meperidine HCl [From Demerol] Adverse Reaction (Verified 10/05/17 10:03) Other Medications Levothyroxine [Synthroid] 112 mcg PO DAILY 06/03/13 [History Confirmed 09/21/17] Hydrocodone Bitart/Apap 5-325 [[place] 5MG-325MG] 1 tab PO Q6H PRN PRN #14 tab 08/20/17 [Rx Confirmed 09/21/17] PFSH Medical History History of colon cancer (Inactive) Surgical History History of hernia repair (Inactive) gallbladder removed (Inactive) Social History Smoking Status: Never smoker alcohol intake: never HPI LEFT SHOULDER: Details: RADHA ROMANO is a 72 year old F here today for a followup on her left shoulder. She states that she is doing better but is not 100% at this time. Patient has increased pain with shoulder flexion. Patient is doing physical therapy and feels that is helpful. Her strength is improving. She is not working at this time. ROS Const Reports system reviewed and no additional complaints, except as docu Eyes Reports system reviewed and no additional complaints, except as docu ENT Reports system reviewed and no additional complaints, except as docu Card Reports system reviewed and no additional complaints, except as docu Resp Reports system reviewed and no additional complaints, except as docu GI Reports system reviewed and no additional complaints, except as docu Reports system reviewed and no additional complaints, except as docu Musc Reports joint pain, Reports limited joint movement Skin/Breast Reports system reviewed and no additional complaints, except as docu Neuro Yes system reviewed and no additional complaints, except as docu Psych Reports system reviewed and no additional complaints, except as docu Endo Reports system reviewed and no additional complaints, except as docu Ortho Exam Right Shoulder Skin/Wound: Yes CDI Contralateral Normal: Yes Testing: Positive AROM-External Rotation at 90 0-60, PROM- External Rotation at side 0-60, PROM-Forward Elevation 0-180, PROM-External Rotation at 90 0-60, AROM-External Rotation at side 0-60 and AROM-Forward Elevation 0-180 Internal Rotation: Tip of Scapula Left Shoulder Testing: Yes Hawkin's, Yes Neer's, Yes TTP AC Joint, Yes AROM- Forward Elevation 0-180 (0-140), Yes AROM-External Rotation at side 0-60 (0-30.), Yes empty can SHOULDER: Alert and oriented 3 no acute distress. Appropriate eye contact affect. Patient remains tender palpation across the anterolateral acromion across the deltoid insertion of the cuff. She continues have pain with abduction and empty can position. And she has AC pain with palpation. Patient refuses injection at this time. Assessment AND Plan Problems 1. Separation of left acromioclavicular joint, type 1, subsequent encounter S43.102D Plan Assessment: Left shoulder AC separation left shoulder pain. Plan: Time patient's been working through physical therapy and feels that she is making progress. This point she is interested in starting back to work roughly in 26 October 2017. Continue with current physical therapy regimen. Any major issues return. Maintain current work restrictions until date as stated Coding Level of Care Code Off vis,est,level 3 Diagnoses Separation of left acromioclavicular joint, type 1, subsequent encounter S43.102D Encounter type: subsequent encounter 10/11/17 3357 <Electronically signed by Chong Glynn DO> Date Chong Glynn DO Cosigner Signature: Date (if applicable) CC: ORTHOPEDIC VISIT Observed: 09/25/2017 Status: F Source: [place] 7:56 AM [facility] REPOSITORY [facility] [address] [place] [address] OFFICE VISIT Date of Service: 09/21/17 MR#: [id number] Acct: [id number] Name: RADHA ROMANO Rep #: [id number] : 1945 Provider: Chong Glynn DO Age/Sex: 72/F [place] [facility] [place]: Signed Intake Intake Visit Reasons: LEFT SHOULDER Is patient in pain?: Yes Pain scale (1-10): 5 Allergies Penicillins Allergy (Verified 09/21/17 10:00) Hives meperidine HCl [From Demerol] Adverse Reaction (Verified 09/21/17 10:00) Other Medications Levothyroxine [Synthroid] 112 mcg PO DAILY 06/03/13 [History Confirmed 09/21/17] Hydrocodone Bitart/Apap 5-325 [[place] 5MG-325MG] 1 tab PO Q6H PRN PRN #14 tab 08/20/17 [Rx Confirmed 09/21/17] PFSH Medical History History of colon cancer (Inactive) Surgical History History of hernia repair (Inactive) gallbladder removed (Inactive) Social History Smoking Status: Never smoker alcohol intake: never HPI LEFT SHOULDER: Details: RADHA ROMANO is a 72 year old F here today for left shoulder. She complains of intermittent anterior shoulder pain. She states she has a dull pain down to her elbow intermittently. No tingling/numbness. She denies clicking, popping or catching. She tries not to take any pain medication unless she can't tolerate it anymore then she will take [place]. She started PT yesterday. ROS Const Reports system reviewed and no additional complaints, except as docu Eyes Reports system reviewed and no additional complaints, except as docu ENT Reports system reviewed and no additional complaints, except as docu Card Reports system reviewed and no additional complaints, except as docu Resp Reports system reviewed and no additional complaints, except as docu GI Reports system reviewed and no additional complaints, except as docu Reports system reviewed and no additional complaints, except as docu Musc Reports joint pain, Reports radiating pain into limb Skin/Breast Reports system reviewed and no additional complaints, except as docu Neuro Yes system reviewed and no additional complaints, except as docu Psych Reports system reviewed and no additional complaints, except as docu Endo Reports system reviewed and no additional complaints, except as docu Ian/Lymph Reports system reviewed and no additional complaints, except as docu Aller/Immun Reports system reviewed and no additional complaints, except as docu Ortho Exam Right Shoulder Skin/Wound: Yes CDI Contralateral Normal: Yes Testing: Positive AROM-External Rotation at 90 0-60, PROM- External Rotation at side 0-60, PROM-Forward Elevation 0-180, PROM-External Rotation at 90 0-60, AROM-External Rotation at side 0-60 and AROM-Forward Elevation 0-180 Internal Rotation: Tip of Scapula Left Shoulder Contralateral Normal: Yes Testing: Yes Hawkin's, Yes Neer's, Yes TTP AC Joint, Yes AROM- Forward Elevation 0-180 Internal Rotation: T12 SHOULDER: Alert and oriented 3 no acute distress. Appropriate eye contact and affect. Otherwise intact from C5-T2 disc effusions. She has positive pulses. Patient is tender palpation across the AC joint mildly tender palpation across the anterolateral acromion. She is a positive Rowland and Neer's. She continues have some she has pain with forward elevation to about 140 but can actively move through that range and then passed through the breast the motion can be performed. I do not appreciate forms of adhesive capsulitis. However concerns patient has either a shoulder contusion or possible rotator cuff pathology secondary to weakness with empty can testing. Assessment AND Plan Problems 1. Separation of left acromioclavicular joint, type 1, subsequent encounter S43.102D Plan Assessment: Left shoulder rate 1 AC separation left shoulder pain. Plan: This point I will keep patient on her current same work restrictions that she is just started physical therapy is only had one appointment. See her back in 2 weeks and we will get a repeat assessment per the patient's request to see if she can go back onto duty. Still think the patient remains symptomatic consideration for MRI of the upper extremity. Evaluate for rotator cuff pathology. For now continue with physical therapy. Coding Level of Care Code Off vis,est,level 3 Diagnoses Separation of left acromioclavicular joint, type 1, subsequent encounter S43.102D Encounter type: subsequent encounter 09/25/17 0756 <Electronically signed by Chong Glynn DO> Date Chong Glynn DO Cosigner Signature: Date (if applicable) CC: INITAL EVALUATION (1) Observed: 09/21/2017 Status: F Source: [place] - PT 3:20 PM [facility] REPOSITORY [facility] Physical [facility] [address] [place] [address] Fax REHABILITATION SERVICES INITIAL EVALUATION MR#: [id number] Acct: [id number] Name: RADHA ROMANO Rep #: [id number] : 1945 72 From: Rambo Frederick PT, Cert. MDT, OCS Referring DriGnette: Chong Glynn DO Status: REG RCR Insurance: [facility] [employer] Patient's Visit Information RADHA ROMANO is a 72 year old F referred to Physical Therapy by Chong Glynn DO DR.MTMERCEDES with a diagnosis of DISLOCATION OF LEFT ACROMIOCLAVICLE JOINT. Date of Evaluation: 09/20/17 Physical Therapist: Rambo Frederick PT, - Visit Plan Frequency: 3x /Week Duration: 4 Weeks Plan: AVOID FLEXION ABOVE 90 DEGREES PRECATION AC. RTC /SCAPULAR STRENGTHENING,POSTURAL EX'S ,MODALITIES - Subjective Subjective: This 72 y/o female presents to physical therapy with discloaction of left AC joint. Patient injuried left shoulder slipping on step hitting door jam. Attempted to work but caused pain then Monday ER at [facility] ,x-rays . Then seen DR Glynn recommended PT. Patient pain affects ADL'S ,self hygine and housework tasks above 90 degrees.Pain affects ablity to return to work and quality of life. Pain located lateral deltoid AC joint. Denies parathesia/tingling. Patient has been able to sleep. VOCATION: [employer]. SOCIAL: - Pain Left Shoulder Pain Intensity (Out of 10): 5 Pain Intensity Range: 10 - Objective POSTURE: rounded shoulders head foward. PALAPTION: tender AC. NEURO: denies parathesai/tingling,reflexes C5-6-7. AROM: shoulder flexion 115 degrees pain,130 degrees,ER 80 degrees pain,IR 50 degrees pain. PROM: shoulder flexion/abd 150 supine. SCAPULAR -HUMERAL FUNCTION : 1:1. MMT: RTC 4-/5 ,deltoid 3+/5 pain. FUNCTIONAL TEST: pain reaching behind back - Special Tests R Shoulder Drop Sign - IS Test: Negative R Shoulder Neer - Impingement: Positive R Shoulder Rowland Cody - Impingement: Positive R Shoulder AC Resisted - AC: Positive R Shoulder Shrug Sign - OA/Adhesive Capsulitis: Negative - Goals Goal 1:: Independant with HEP Goal Time Frame: 4-6 Weeks Goal 2:: Patient decrease pain left shoulder by 60% or greater to improve function Goal Time Frame: 4-6 Weeks Goal 3:: Patient increase AROM shoulder flexion /abd 150 degrees and ER 90 to improve function above 90 degrees for ADL'S and job demnads Goal Time Frame: 4-6 Weeks Goal 4:: Patient increase strength left shoulder 4/5 to improve function with ADL'S and return to job demands. Goal Time Frame: 4-6 Weeks Goal 5:: Patient be able to perform ADL'S ,housework tasks and RTW with min to no limitations Goal Time Frame: 4-6 Weeks - Rehabilitation Potential Physical Therapy Diagnosis: This patient has left shoulder AC joint dislocation with pain ,ROM loss ,strength thus impairs function and ADL'S and RTW thus benifit from skilled PT Rehabilitation Potential: Good - Anticipated Interventions Patient/Client Instruction: Educate patient on: Condition, Plan of Care For the Purpose of:: To decrease pain, To increase ROM, To improve muscle performance and motor function, To improve ability to perform ADL's, To increase tolerance to activity/condition/position, To improve performance and independence with ADL's, To improve ability of physical actions for home/community/work/leisure, To improve health of tissue, To decrease soft tissue restriction, To increase flexibility/ROM, To assume or resume ADL's, To improve health and function, To improve ability to perform tasks related to life management Therapeutic Exercise to Include: Strength training, Postural training, Active ROM, Scapular Strength/Stabilization Comment: RTC For the Purpose of:: To decrease pain, To increase ROM, To improve muscle performance and motor function, To improve ability to perform ADL's, To increase tolerance to activity/condition/position, To improve performance and independence with ADL's, To improve ability of physical actions for home/community/work/leisure, To improve health of tissue, To decrease soft tissue restriction, To improve ability to perform tasks related to life management IF ES: Yes Cryotherapy (ice pack, ice massage): Yes Thermo therapy (hot pack): Yes Ultrasound (thermal/non thermal): Yes For the Purpose of:: To decrease pain, To increase ROM, To improve nutrient delivery to tissue, To increase oxygenation perfusion, To improve health of tissue, To decrease soft tissue restriction Thank you for the opportunity to evaluate your patient. For Medicare and Medicare HMO plans, please review the plan of care and approve it. It will need to be FAXED BACK to us at [phone] for Medicare purposes. Please let me know if there are questions or concerns regarding this plan of care. Physician Signature: Date: <Electronically signed by Rambo Frederick PT, Cert. T, OCS> 09/21/17 8080 CC: Francis Botello MD; Chong Glynn DO TIMBO Signed For Medicare only, by signing this I certify the plan of care. Physicians Signature Date ORTHOPEDIC VISIT Observed: 09/18/2017 Status: F Source: [place] REPORT 7:46 AM [facility] REPOSITORY [facility] [address] [place] [id number] OFFICE VISIT Date of Service: 09/07/17 MR#: [id number] Acct: [id number] Name: RADHA ROMANO Rep #: [id number] : 1945 Provider: Chong Glynn DO Age/Sex: 72/F [place] [facility] [place] [place] Status: Signed Intake Intake Visit Reasons: LEFT SHOULDER Allergies Penicillins Allergy (Verified 08/24/17 08:54) Hives meperidine HCl [From Demerol] Adverse Reaction (Verified 08/24/17 08:54) Other Medications Levothyroxine [Synthroid] 112 mcg PO DAILY 06/03/13 [History Confirmed 08/24/17] Hydrocodone Bitart/Apap 5-325 [[place] 5MG-325MG] 1 tab PO Q6H PRN PRN #14 tab 08/20/17 [Rx Confirmed 08/24/17] PFSH Medical History History of colon cancer (Inactive) Surgical History History of hernia repair (Inactive) gallbladder removed (Inactive) Social History Smoking Status: Never smoker alcohol intake: never HPI LEFT SHOULDER: Details: RADHA ROMANO is a 72 year old F here today for Ortho Exam Right Shoulder Skin/Wound: Yes CDI Contralateral Normal: Yes Testing: Positive AROM-External Rotation at 90 0-60, PROM- External Rotation at side 0-60, PROM-Forward Elevation 0-180, PROM-External Rotation at 90 0-60, AROM-External Rotation at side 0-60 and AROM-Forward Elevation 0-180 Internal Rotation: Tip of Scapula Left Shoulder Skin/Wound: Yes CDI Contralateral Normal: Yes Testing: Yes AROM-Forward Elevation 0-180, Yes AROM-External Rotation at side 0-60, Yes PROM-External Rotation at side 0-60, Yes AROM-External Rotation at 90 0-60, Yes PROM-Forward Elevation 0-180, Yes PROM-External Rotation at 90 0-60, Yes Hawkin's, Yes Neer's, Yes TTP AC Joint, Yes empty can Internal Rotation: L1 SHOULDER: Alert and oriented 3 in no acute distress. I contact affect. No adenopathy. Patient remains tender palpation across the AC joint and anterolateral acromion. Patient shows weakness with supraspinous testing which is concerning for shoulder contusion versus rotator cuff tear potentially. Continues a positive Rowland and Neer's. Assessment AND Plan Problems 1. Separation of left acromioclavicular joint, type 1, subsequent encounter S43.102D Plan Assessment: Left shoulder AC joint separation grade 1 probable shoulder contusion and/or rotator cuff tear. Plan: At this point time an estimate for physical therapy. I will see the fashion patient back in 2 more weeks to see whether or not she can resume work at this point time. Continue current work restrictions. If the patient does not respond well to physical therapy she may require change of codes an MRI to evaluate for rotator cuff pathology. Follow-up as stated Coding Level of Care Code Off vis,est,level 3 Diagnoses Separation of left acromioclavicular joint, type 1, subsequent encounter S43.102D Encounter type: subsequent encounter 09/18/17 0746 <Electronically signed by Chong Glynn DO> Date Chong Glynn DO Cosigner Signature: Date (if applicable) CC: ORTHOPEDIC VISIT Observed: 08/28/2017 Status: F Source: CARLOS REPORT 4:50 PM [facility] REPOSITORY [facility] [address] [place] [id number] OFFICE VISIT Date of Service: 08/24/17 MR#: [id number] Acct: [id number] Name: RADHA ROMANO Rep #: [id number] : 1945 Provider: Chong Glynn DO Age/Sex: 72/F Location: [facility] [place] [place] Status: Signed Intake Vital Signs08/24/17 Height 5 ft 5 in 08/24/17 Weight: 231 lb 08/24/17 Body Mass Index (BMI) 38.4 Intake Visit Reasons: left shoulder Is patient in pain?: Yes Allergies Penicillins Allergy (Verified 08/24/17 08:54) Hives meperidine HCl [From Demerol] Adverse Reaction (Verified 08/24/17 08:54) Other Medications Levothyroxine [Synthroid] 112 mcg PO DAILY 06/03/13 [History Confirmed 08/24/17] Hydrocodone Bitart/Apap 5-325 [[place] 5MG-325MG] 1 tab PO Q6H PRN PRN #14 tab 08/20/17 [Rx Confirmed 08/24/17] PFSH Medical History History of colon cancer (Inactive) Surgical History History of hernia repair (Inactive) gallbladder removed (Inactive) Social History Smoking Status: Never smoker alcohol intake: never HPI left shoulder: Chief Complaint: left shoulder Details: RADHA ROMANO is a 72 year old F here today for left shoulder pain. Patient is a workers comp case. She notes last Monday, she missed a step at work and hit her left shoulder on a door jam. She denies any bruising. Patient notes that her pain is over her clavicle. She went to the ED where she had xrays. She has been wearing a sling at all times. Denies numbness, tingling or other associated symptoms. 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 ROS Const Reports system reviewed and no additional complaints, except as docu Eyes Reports system reviewed and no additional complaints, except as docu ENT Reports system reviewed and no additional complaints, except as docu Card Reports system reviewed and no additional complaints, except as docu Resp Reports system reviewed and no additional complaints, except as docu GI Reports system reviewed and no additional complaints, except as docu Reports system reviewed and no additional complaints, except as docu Musc Reports joint pain Skin/Breast Reports system reviewed and no additional complaints, except as docu Neuro Yes system reviewed and no additional complaints, except as docu Psych Reports system reviewed and no additional complaints, except as docu Endo Reports system reviewed and no additional complaints, except as docu Ortho Exam Right Shoulder Skin/Wound: Yes CDI Contralateral Normal: Yes Testing: Positive AROM-External Rotation at 90 0-60, PROM- External Rotation at side 0-60, PROM-Forward Elevation 0-180, PROM-External Rotation at 90 0-60, AROM-External Rotation at side 0-60 and AROM-Forward Elevation 0-180 Internal Rotation: Tip of Scapula Left Shoulder Skin/Wound: Yes CDI Contralateral Normal: Yes Testing: Yes AROM-Forward Elevation 0-180, Yes AROM-External Rotation at side 0-60, Yes PROM-External Rotation at side 0-60, Yes AROM-External Rotation at 90 0-60, Yes PROM-Forward Elevation 0-180, Yes PROM-External Rotation at 90 0-60, Yes TTP AC Joint Internal Rotation: Tip of Scapula SHOULDER: Alert and oriented 3 in no acute distress. Appropriate eye contact and affect. Otherwise intact in the C5-T2 distributions. She has +2 pulses. Patient is tender to palpation across the left AC joint. There is no obvious elevation or instability with gentle anterior posterior translation. 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 Cuff strength appears to be 5 out of 5 although she is tender to palpation across the anterolateral acromion and the cuff but could be from the fall. Otherwise no brachial adenopathy 5 out of 5 strength biceps and triceps median radial nerves intact. X-rays: Evaluated myself patient patient shows bilateral AC arthrosis. No obvious elevation to her AC joints on her radiographs. Assessment AND Plan 1. Separation of left acromioclavicular joint, type 1, initial encounter S43.102A Plan Assessment: Grade 1 AC separation versus exacerbation of AC arthrosis. And associated left shoulder pain. Plan: At this point time the sling is for comfort. Told the patient that if she truly has an AC separation skin to be sore for months. She does has a simple AC synovitic change in irritation of her AC joint this should get better in a few weeks. If it does not I recommend an AC injection. For now continue with ice massage activity as tolerated and sling for comfort. I will the patient follow-up back up with me in 4-6 weeks if there is any issues. Coding Level of Care Code Off vis,new,level 3 Diagnoses Separation of left acromioclavicular joint, type 1, initial encounter S43.102A Encounter type: initial encounter 08/28/17 1650 <Electronically signed by Chong Glynn DO> Date Chong Glynn DO Cosigner Signature: Date (if applicable) CC: ALLERGIES ALLERGIES DATE TYPE / CODE NAME / CODE REACTION SEVERITY SOURCE 03/01/2018 Drug meperidine Other Unknown [place] Allergy/416 HCl/[id number](RXN [facility] [id number] [place] [address]) Repository 03/01/2018 Drug Penicillins/K80716 Hives Unknown [place] Allergy/416 0476(RXNORM) [facility] ED CT) Repository 03/01/2018 Drug hydrochlorothiazid Dizziness/Light SV [place] Allergy/416 e/[id number](RXNOR headedness Community [id number] [place] [address]) Repository 12/10/2008 DRUG/806638 MEPERIDINE (PF) [facility] 003(SNOMED [place] [facility]) Repository 05/08/2008 Drug PENICILLINS HIVES [facility] Class/21361 [place] 1003(SNOMED Repository CT) ENCOUNTERS ENCOUNTERS ADMIT/DISCHARGE ACCOUNT ADMITTING ENCOUNTER LOCATION SOURCE NUMBER CLASS 08/21/2018/08/22/19 [id number] Ambulatory [address] Repository 08/16/2018 [id number] Ambulatory [facility] ing:LAB Repository 04/23/2018/04/24/20 [id number] Ambulatory [address] Repository 04/20/2018 [id number] Ambulatory [facility] ing:LAB Repository 03/08/2018 [id number] Ambulatory [facility] ing:[facility] Repository 03/08/2018 [id number] Ambulatory BMSBuilding:[facility] Repository 03/08/2018 [id number] Ambulatory BMSBuilding:Henok Gonzalez MS.CF.[facility] Repository 03/01/2018/03/01/20 [id number] Ambulatory BMSBuilding:Henok Gonzalez 18 MS.[facility] Repository 02/28/2018 [id number] Ambulatory BMSBuilding:Henok Gonzalez MS.[facility] Repository 02/07/2018/02/09/20 [id number] Ambulatory [address] Repository 02/07/2018 [id number] Ambulatory [facility] ing:LAB.FUTUR Repository E 01/10/2018/01/12/20 [id number] Ambulatory [address] Repository 01/08/2018 [id number] Ambulatory [facility] ing:[facility]S Repository 01/08/2018 [id number] Ambulatory BMSBuilding:[facility] Repository 12/27/2017 [id number] Ambulatory [facility] ing:RAD.FUTUR Repository E 12/26/2017/12/27/19 [id number] Ambulatory [address] Repository 12/26/2017/12/28/19 [id number] Ambulatory [address] Repository 10/26/2017/10/27/19 [id number] Ambulatory BMSBuilding:B Grant 18 MS.[facility] Repository 10/18/2017/10/20/19 [id number] Ambulatory [address] Repository 10/16/2017/10/17/19 [id number] Ambulatory [place] Carlos [address] [place] [address] ing:PT Repository 10/13/2017 [id number] Ambulatory [place] Carlos [facility] ing:LAB Repository 10/05/2017/10/06/19 [id number] Ambulatory BMSBuilding:B Carlos 18 MS.[facility] Repository 09/21/2017/09/21/19 [id number] Ambulatory BMSBuilding:B Carlos 18 MS.[facility] Repository 09/07/2017/09/07/19 [id number] Ambulatory BMSBuilding:B Grant 18 MS.[facility] Repository 08/24/2017/08/24/19 [id number] Ambulatory BMSBuilding:B Grant 18 MS.[facility] Repository PAYERS PAYERS ENCOUNTER GUARANTOR PAYER SUBSCRIBER SOURCE 08/16/2018 RADHA A Primary RADHA A Carlos [id number] CR Insurance:AULTCAREPol REEDDOB: [address] Number: [id number] [facility]al [facility] [place] [address]Mco: [id number] Repository Date:7752-51-48UG BOX (PM) [address], [place] [address]PS: 08/16/2018 Secondary NOT GIVENUNK Carlos Insurance:SELF PAY [facility] Number: Effective Repository Date:2018-08-16 04/20/2018 RADHA A Primary RADHA Castañeda Carlos [id number] CR Insurance:AULTCAREPol [place] FALL[place]OB: [address] Number: [id number] Mexico Behavioral [facility] Institute [facility] [address]Qbj: [id number] Repository Date:0291-80-99ME BOX (DQ) [place] [address]ZC: 04/20/2018 Secondary NOT GIVENUNK Grant Insurance:SELF PAY [facility] Number: Effective Repository Date:2018-04-20 03/08/2018 RADHA Castañeda Primary RADHA Castañeda Carlos [id number] CR Insurance:AULTCAREPol REEDDOB: [address], icy Number: [id number] Mexico Behavioral Health Institute at [facility] [address]Duu: [id number] Repository Date:6395-45-80FR BOX () [address], [place] [address]EI: 03/08/2018 Secondary NOT GIVENUNK Grant Insurance:SELF PAY [facility] Number: Effective Repository Date:2018-03-01 03/08/2018 RADHA Castañeda Primary RADHA Castañeda Grant [id number] CR Insurance:AULTCAREPol REEDDOB: [address] icy Number: [id number] Mexico Behavioral Health Institute [facility] [address]Nfc: [id number] Repository Date:9408-21-56HO BOX () [address], [place] [address]AM: 03/08/2018 Secondary NOT GIVENUNK Grant Insurance:SELF PAY [facility] Number: Effective Repository Date:2018-03-08 03/08/2018 RADHA Castañeda Primary RADHA Castañeda Carlos [id number] CR Insurance:AULTCAREPol REEDDOB: [address], icy Number: [id number] Mexico Behavioral [facility] Institute [facility] [address]Lcm: [id number] Repository Date:7182-28-10FX BOX () [address], [place] [address]IG: 03/08/2018 Secondary NOT GIVENUNK Grant Insurance:SELF PAY [facility] Number: Effective Repository Date:2018-03-08 03/01/2018 RADHA Castañeda Primary RADHA Castañeda [place] [id number] [place] Insurance:AULTCAREPol REEDDOB: Community [address] icy Number: [id number] [id number] Repository [address]Jnq: 330) Date:8742-68-24Y[phone] () [address], [place] [address]XU: 03/01/2018 Secondary NOT GIVENUNK Grant Insurance:SELF PAY [facility] Number: Effective Repository Date:2018-03-01 02/28/2018 RADHA Castañeda Primary RADHA Gutierresoster [id number] CR Insurance:AULTCAREPol REEDDOB: [address], icy Number: [id number] [facility] Behavioral [facility] Institute at [facility] [address]Uud: [id number] Repository Date:6594-31-68GC BOX () [address], [place] [address]ZP: 02/28/2018 Secondary NOT GIVENUNK Carlos Insurance:SELF PAY [facility] Number: Effective Repository Date:2018-02-28 02/07/2018 RADHA Castañeda Primary RADHA Castañeda Carlos [id number] CR Insurance:AULTCAREPol REEDDOB: [address], icy Number: [id number] Mexico Behavioral Health Institute at [facility] [address]Bxy: [id number] Repository Date:3668-05-04QX [address] () [address], [place] [address]RZ: 02/07/2018 Secondary NOT GIVENUNK Carlos Insurance:SELF PAY [facility] Number: Effective Repository Date:2018-02-07 01/08/2018 RADHA Castañeda Primary RADHA Castañeda Carlos [id number] CR Insurance:AULTCAREPol REEDDOB: [address], icy Number: [id number] Mexico Behavioral Health Institute at [facility] [address]Tjl: [id number] Repository Date:5759-00-07SD [address] () [address], [place] [address]XI: 01/08/2018 Secondary NOT GIVENUNK Grant Insurance:SELF PAY [facility] Number: Effective Repository Date:2017-12-26 01/08/2018 RADHA Castañeda Primary RADHA Castañeda Carlos [id number] CR Insurance:AULTCAREPol REEDDOB: Community [address], icy Number: [id number] Mexico Behavioral [facility] Institute [facility] [address]Kqd: [id number] Repository Date:3594-43-44LZ [address]OX () [address], [place] [address]XB: 01/08/2018 Secondary NOT GIVENUNK Grant Insurance:SELF PAY [facility] Number: Effective Repository Date:2018-01-08 12/27/2017 RADHA Castañeda Primary RADHA Castañeda Carlos [id number] CR Insurance:AULTCAREPol REEDDOB: [facility] [address] icy Number: [id number] Mexico Behavioral [facility] Institute [facility] [address]Wrp: [id number] Repository Date:5215-66-47TP [address] () [address], [place] [address]EN: 12/27/2017 Secondary NOT GIVENUNK Grant Insurance:SELF PAY [facility] Number: Effective Repository Date:2017-12-27 10/26/2017 RADHA Castañeda Primary RADHA Castañeda Grant [id number] CR Insurance:AULTCAREPol REEDDOB: [facility] [address] icy Number: [id number] Mexico Behavioral Health Institute at [facility] [place] [address]Gnc: [id number] Repository Date:5934-92-54AS [address] () [address], [place] [address]QK: 10/26/2017 Secondary NOT GIVENUNK Carlos Insurance:SELF PAY [facility] Number: Effective Repository Date:2017-10-26 10/16/2017 RADHA Castañeda Primary RADHA Castañeda Carlos [id number] CR Insurance:AULTCAREPol REEDDOB: [facility] [address] icy Number: [id number] Mexico Behavioral Health Institute at [facility] [place] [address]Gqz: [id number] Repository Date:4671-14-36BO [address]OX () [address], [place] [address]BC: 10/16/2017 Secondary NOT GIVENUNK Grant Insurance:SELF PAY [facility] Number: Effective Repository Date:2017-09-07 10/13/2017 RADHA Castañeda Primary RADHA Castañeda Carlos [id number] CR Insurance:AULTCAREPol REEDDOB: [address], icy Number: [id number] Mexico Behavioral Health Institute at [facility] [place] [address]Bwd: [id number] Repository Date:3470-70-93TH BOX () [address], [place] [address]KK: 10/13/2017 Secondary NOT GIVENUNK Carlos Insurance:SELF PAY [facility] Number: Effective Repository Date:2017-10-11 10/05/2017 RADHA Castañeda Primary RADHA Castañeda Carlos [id number] CR Insurance:AULTCAREPol REEDDOB: [address], icy Number: [id number] Mexico Behavioral Health Institute at [facility] [place] [address]Ubf: [id number] Repository Date:8252-30-72XA BOX () [address], [place] [address]XC: 10/05/2017 Secondary NOT GIVENUNK Grant Insurance:SELF PAY [facility] Number: Effective Repository Date:2017-09-21 09/21/2017 RADHA Castañeda Primary RADHA Castañeda Carlos [id number] CR Insurance:AULTCAREPol REEDDOB: [address], icy Number: [id number] Mexico Behavioral [facility] [address]Fcr: [id number] Repository Date:5377-92-28RX [address] () [address], [place] [address]OP: 09/21/2017 Secondary NOT GIVENUNK Grant Insurance:SELF PAY [facility] Number: Effective Repository Date:2017-09-07 09/07/2017 RADHA Castañeda Primary RADHA Castañeda Grant [id number] CR Insurance:AULTCAREPol REEDDOB: [address], icy Number: [id number] Mexico Behavioral Health Institute [facility] [place] [address]Hur: [id number] Repository Date:0503-07-94BX [address] ( [address], [place] [address]PA: 09/07/2017 Secondary NOT GIVENUNK Grant Insurance:SELF PAY [facility] Number: Effective Repository Date:2017-08-24 08/24/2017 RADHA Castañeda Primary RADHA Gonzalez [id number] CR Insurance:AULTCAREPol REEDDOB: [address] [facility] Number: [id number] Mexico Behavioral Health Institute at [facility] [place] [address]Pkz: [id number] Repository Date:7213-56-54IS BOX (OF) [address], [place] [address]NK: 08/24/2017 Secondary NOT GIVENUNK Grant Insurance:SELF PAY [facility] Number: Effective Repository Date:2017-08-21
== END ==
PROVIDERS: Family Provider Family Medicine; PCP Family Medicine; Referring Provider Family Medicine; Visit Provider Family Medicine
DX: I10 Essential (primary) hypertension (principal); Z79.899 Other long term (current) drug therapy
CPT/HCPCS: 36415; 80048; 80061

== ENCOUNTER → 2019-02-06 09:18 | Outpatient (CLI) | payer OTHER, SELFPAY ==
[2018-03-01 15:01] VITALS: BMI 40.2
[2019-02-06 10:48] LABS: Cholesterol 207 mg/dL (200); High Density Lipoprotein 43 mg/dL; Thyroid Stim Hormone (TSH) 1.09 uIU/mL (0.358-3.74); Triglycerides 144 mg/dL; Very Low Density Lipoprotein 29 mg/dL (5-40)
== END ==
PROVIDERS: Family Provider Family Medicine; PCP Family Medicine; Referring Provider Family Medicine; Visit Provider Family Medicine
DX: E78.2 Mixed hyperlipidemia (principal)
CPT/HCPCS: 36415; 80061; 84443

== ENCOUNTER → 2019-05-22 13:30 | Outpatient (CLI) | payer OTHER, SELFPAY ==
[2019-05-22 07:22] VITALS: BMI 40.2
--- NOTE | 2019-05-22 07:30 | LES_PTH ---
PATIENT: RADHA ROMANO LOC: [facility] U#:[id number] AGE/SX: 80/F ROOM: RE05/22/[address]: Dr. Cruzito Corrales MD : 1945 BED: DIS: SPEC #: [id number] RECD: 05/22/19 11:32 STATUS: KENNY TYSON #: [id number] QUINCY: 05/22/19 07:[address]: Cruzito Corrales DEPT: SURGICAL PATHOLOGY RECD BY: Bhupendra Vargas ENTERED: 05/22/19 13:43 SP TYPE: Lesion OTHR DR: Dr. 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 Perineural invasion is not seen. Actinic keratosis and solar elastosis. POORNIMA:felicia 05/23/19 MICROSCOPIC DESCRIPTION Slides are reviewed. GROSS DESCRIPTION Received in fixative is one container labeled with the patient's name and designated right cheek lesion. The specimen consists of a piece of gabriel-white skin ellipse measuring 1.5 x 1 cm and up to 0.3 cm in thickness. The specimen is inked as follows: superior - black, inferior - blue, medial - green and lateral - orange. The specimen is serially sectioned and submitted entirely in one cassette. / POORNIMA:felicia 05/22/19 TC:0 CPT: 90535
== END ==
PROVIDERS: Family Provider Family Medicine; PCP Family Medicine; Visit Provider Surgery
DX: L98.9 Disorder of the skin and subcutaneous tissue, unspecified (principal)
CPT/HCPCS: 88305

== ENCOUNTER 2019-08-08 00:20 | Observation (INO) | payer OTHER, SELFPAY ==
[2019-05-22 07:22] VITALS: BMI 40.2
[2019-08-08] VITALS (20 sets, daily range): BP systolic 144–201; BP diastolic 72–100; PULSE 60–88; RESP 15–20; TEMP 36.5–37.2; O2SAT 95–99; BMI 44.7; BMI 41.9; BMI 42.0
--- NOTE | 2019-08-08 00:31 | EKG12_ITS ---
Test Reason : DYSRHYTHMIA Blood Pressure : / mmHG Vent. Rate : 081 BPM Atrial Rate : 081 BPM P-R Int : 146 ms QRS Dur : 074 ms QT Int : 392 ms P-R-T Axes : 018 -37 -12 degrees QTc Int : 455 ms Normal sinus rhythm Left axis deviation Nonspecific ST and T wave abnormality Abnormal ECG Confirmed by LÓPEZ SCALES, COREY ([id number]), publishing editor ANTHONY GALVAN ([id number]) on 08/08/2019 10:41:21 AM Referred By: Sahra Zelaya Confirmed By:VIKKI DAWN MD
--- NOTE | 2019-08-08 00:31 | RAD_ITS ---
STUDY: X-RAY CHEST REASON FOR EXAM: Female, 74 years old. CP AND DYSPNEA TECHNIQUE: Single frontal view of the chest. COMPARISON: 05/27/2010 FINDINGS: The lungs are clear and expanded. There is no demonstrated pleural abnormality. Normal size heart. Normal mediastinum and beto. Normal visualized pulmonary arteries. Normal visualized aortic arch and descending thoracic aorta. Normal visualized thoracic spine. Normal visualized ribs, clavicles, and shoulders. There is no demonstrated abnormality of the visualized soft tissue structures of the upper abdomen. RAD/Chest 1 View (Portable) IMPRESSION: Normal x-ray examination of the chest. Electronically Signed: Froy Skinner MD at 0:53 EST Tel , Service support ,
--- NOTE | 2019-08-08 00:46 | ED.DCSUM_ITS ---
History of Present Illness Chief Complaint: Chest Pain Narrative: Patient is a 74-year-old female who presents with chest tightness. She has been ill for the past 4 days with URI-like illness. She complains of nasal and chest congestion, rhinorrhea, cough, headache. She has had some mild diarrhea. No nausea or vomiting. She developed chest tightness and shortness of breath today which worsened this evening. Family reports that she fell at home. She stood up and fell to the ground but does remember falling and does remember family member calling out. It does not sound like she completely lost consciousness. When asked if she felt dizzy with this episode she states I did not think so but I must have. Per report while being transferred to the EMS cot she had a brief loss of consciousness. She was given aspirin and nitroglycerin by EMS and reports some improvement in her symptoms with this. No sick contacts at home. No abdominal pain. She has a history of hypertension and hyperlipidemia but is noncompliant with those medications. She has a history of hypothyroidism and does take her thyroid medication. Past Medical History - Allergies and Home Meds Allergies/Adverse Reactions: Allergies Penicillins Allergy (Verified 05/27/19 10:28) Hives hydrochlorothiazide Adverse Reaction (Severe, Verified 05/27/19 10:28) Dizziness/Lightheadedness meperidine HCl [From Demerol] Adverse Reaction (Verified 05/27/19 10:28) Other Primary Care Physician: Jerel Resendez MD [Primary Care Provider] - Past Medical History: - - Hypertension, hyperlipidemia, hypothyroidism Smoking Status: Never smoker Review of Systems All systems negative except as indicated General: Denies: Fever Eyes: Denies: Visual changes - bilaterally ENT: Denies: Bilateral ear pain Cardiovascular: Reports: Chest pain Respiratory: Reports: Dyspnea, Cough Gastrointestinal: Reports: Diarrhea. Denies: Abdominal pain, Nausea, Vomiting Musculoskeletal: Denies: Myalgias, Arthralgias Skin: Denies: Rash Neurological: Reports: Headache Hematologic: Denies: Easy bruising Allergy: Denies: Uticaria Physical Exam Vital Signs/Narrative: Vital Signs Temp Pulse Resp BP Pulse Ox 08/08/19 00:39 162/86 H 08/08/19 00:21 98.9 F 72 17 201/99 H 98 Inital Vital Signs reviewed: Yes General: Well nourished, Acute Distress Head: Normocephalic Eyes: EOMI ENT: Moist mucous membranes Neck: Supple Cardiovascular: Regular rate, Regular rhythm, No murmurs Respiratory: - - Tachypnea, patient appears dyspneic. She does have scattered expiratory wheezes. Abdomen: Soft, Nontender Extremities: Nontender Skin: Normal color Neurological: Alert Psychological: Normal affect Diagnostic/Tx/Re-eval Impressions Chest X-Ray 08/08/19 00:31 IMPRESSION: Normal x-ray examination of the chest. Electronically Signed: Froy Skinner MD at 0:53 EST Tel , Service support , 08/08/19 00:31 Chest 1 View (Portable) [RAD] Stat 08/08/19 00:55 Mucosa - Nasopharyngeal Influenza Types A,B Direct FA (BADIRIZAK) - Final Laboratory Results 08/08/19 08/08/19 08/08/19 00:33 00:33 00:33 WBC 7.2 RBC 4.69 Hgb 14.7 Hct 42.6 MCV 90.8 MCH 31.3 MCHC 34.5 RDW Std Deviation 41.0 RDW Coeff of Dasia 12.3 Plt Count 231 MPV 9.9 Immature Gran % (Auto) 0.400 Neut % (Auto) 68.5 Lymph % (Auto) 17.5 L [place] % (Auto) 10.2 H Eos % (Auto) 2.8 Baso % (Auto) 0.6 Absolute Neuts (auto) 5.0 Absolute Lymphs (auto) 1.26 Nucleated RBC % 0 PT 12.2 INR 0.9 Sodium 139 Potassium 4.0 Chloride 105 Carbon Dioxide 29.0 Anion Gap 5 BUN 16 Creatinine 1.21 H Estim Creat Clear Calc 34.69 Est GFR (MDRD) Af Amer 56 L Est GFR (MDRD) Non-Af 46 L BUN/Creatinine Ratio 13.2 Glucose 128 H Calcium 9.2 Troponin I < 0.015 - Medical Decision Making EKG shows normal sinus rhythm with diffuse T wave flattening. No ST segment elevation or depression. Laboratory studies including CBC, BMP, troponin, INR normal. Rapid influenza negative. Chest x-ray shows no acute process. Given the patient's respiratory symptoms her chest tightness could be related to process such as bronchitis. However I am concerned that she also had an episode of syncope and reports improvement in symptoms with nitroglycerin. Therefore I do feel hospitalization warranted for further evaluation, serial enzymes and cardiac monitoring. Patient will be discussed with the hospitalist and admitted. ED Disposition - Plan for ED Patient: Disposition: Acute Care Hospital [facility] Diagnosis: Chest pain, Syncope, Bronchitis Referrals: Jerel Resendez MD [Primary Care Provider] -
[2019-08-08 00:55] LABS: Absolute Lymphocyte Count 1.26 X10^3/uL (0.83-4.51); Basophil# 0.04 X10^3/uL; Basophil% 0.6 % (0-1); Eosinophils% 2.8 % (0-5); Hematocrit 42.6 % (37-47); Hemoglobin 14.7 g/dL (12.0-15.0); Lymphocyte # 1.26 X10^3/ul (4.0); Lymphocyte % 17.5 % (19-41); Mean Corp Hgb Conc 34.5 g/dL (32-36); Mean Corpuscular Hgb 31.3 pg (27.0-32.0); Mean Corpuscular Volume 90.8 fL (81-99); Mean Platelet Vol. 9.9 fl (6.2-12.0); Monocyte# 0.74 X10^3/uL; Monocyte% 10.2 % (0-10); NRBC Flagged by Analyzer 0 % (0-5); Neutrophil # 4.95 X10^3/uL (2.7-7.7); Neutrophil % 68.5 % (47-70); Platelet Count 231 K/mm3 (150-450); RBC Distribution Width CV 12.3 % (11.6-14.6); Red Blood Count 4.69 M/mm3 (4.2-5.4); White Blood Count 7.2 K/mm3 (4.4-11.0)
[2019-08-08] MEDS: Ipratropium/Albuterol Sulfate 3 ML AMPUL.NEB INHALATION ×4 (00:56→19:50)
[2019-08-08 00:57] LABS: International Normalized Ratio 0.9; Prothrombin Time (Protime)PT. 12.2 SECONDS (11.7-14.9)
[2019-08-08] MEDS: 0.9% Normal Saline 1,000 ML 999 ML IV (01:03)
[2019-08-08 01:07] LABS: Anion Gap 5 (5-15); BUN 16 mg/dL (7-18); BUN/Creat Ratio 13.2 RATIO (10-20); Calcium,Total 9.2 mg/dL (8.5-10.1); Chloride 105 mmol/L (98-107); Creatinine, Serum 1.21 mg/dL (0.55-1.02); EST Glomerular Filtration Rate 46 mL/min (>60); Est Glom Filt Rate - Afr Amer 56 mL/min (>60); Estimated Creatinine Clearance 34.69 ml/min; Glucose 128 mg/dL (74-106); Sodium Level 139 mmol/L (136-145)
--- NOTE | 2019-08-08 01:55 | HP.PCM_ITS ---
Problem List (1) Chest pain Status: Acute Qualifiers: Chest pain type: unspecified Qualified Code(s): R07.9 - Chest pain, unspecified (2) Syncope Status: Acute Qualifiers: Encounter type: initial encounter (3) Essential hypertension Status: Chronic (4) Hypothyroidism Status: Chronic Qualifiers: Hypothyroidism type: unspecified Qualified Code(s): E03.9 - Hypothyroidism, unspecified History of Present Illness Date of Admission: 08/08/19 Chief Complaint: Syncope, chest pain - 1 day The patient is a 74 year old F with PMHx of Hypertension, hypothyroidism, h/o colon CA s/p colectomy who presents with a syncopal episode this evening. Patient says she has had some upper respiratory illness ongoing for 4 days. She has cough, nasal congestion, postnasal drip and mild shortness of breath. She got up to go to another room of the house and found to have a syncopal episode. She is not sure how long this lasted. She denies hitting her head. She subsequently had substernal chest tightness without diaphoresis or dizziness or palpitations. It was associated with shortness of breath. Her chest tightness persisted and the EMS was called. Her blood pressure was elevated at 213/106. She was found sitting at the kitchen table and seemed to have trouble catching her breath. She was given 324 mg baby aspirin as well as nitro that helped with her pain. She reportedly had another syncopal episode whilst being transported on the cot by the squad. Patient admits to not taking her blood pressure medications for several months. Her blood pressure is usually elevated. Vitals in the ED showed temp 98.9F, HR 72, BP 210/99, RR 17, Spo2 98% on room air. CBCD was unremarkable. INR 0.9. BMP was remarkable for Cr 1.21. This was elevated compared to previous of 0.98. EKG shows NSR, no acute ST-T changes. Chest X-ray was unremarkable. 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, face Onset Date: ~04/2019 C44.320 History of colon cancer Z85.038 Hypertension (Inactive) I10 Allergies Penicillins Allergy (Verified 05/27/19 10:28) Hives hydrochlorothiazide Adverse Reaction (Severe, Verified 05/27/19 10:28) Dizziness/Lightheadedness meperidine HCl [From Demerol] Adverse Reaction (Verified 05/27/19 10:28) Other Home Medications: Ambulatory Orders Medication Instructions Recorded levothyroxine 100 mcg tablet 100 mcg PO QDAY 02/28/18 Surgical History: Surgical History (Last Reviewed 05/22/19 @ 07:21 by Nella Ricks) History of cholecystectomy Z90.49 History of colectomy Z90.49 History of hemorrhoidectomy Z98.890 History of thyroidectomy E89.0 History of hernia repair Z98.890, Z87.19 Surgical History: cholecystectomy, colectomy - Status post hemorrhoidectomy, thyroidectomy, herniorrhaphy, - Psychiatric History: No pertinent psych hx 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 Lives: Spouse/ Significant Other, With Family Smoking Status: Never smoker Tobacco Use: Non-smoker Alcohol: None Drugs: None - *Family History Maternal Family History: Family History (Last Reviewed 05/22/19 @ 07:21 by Nella Ricks) Mother CAD (coronary artery disease) Myocardial infarction, Onset Age: 66 Hypertension Sister CAD (coronary artery disease) Myocardial infarction, Onset Age: 63 Brother Heart disease History of implantable cardioverter-defibrillator (ICD) placement Grandmother Hypertension History Items: High Cholesterol, Heart Disease, Hypertension Paternal Family History: Family History (Last Reviewed 05/22/19 @ 07:21 by Nella Ricks) Mother CAD (coronary artery disease) Myocardial infarction, Onset Age: 66 Hypertension Sister CAD (coronary artery disease) Myocardial infarction, Onset Age: 63 Brother Heart disease History of implantable cardioverter-defibrillator (ICD) placement Grandmother Hypertension History Items: Unknown Review of Systems Constitutional: Reports: Weakness, Fatigue. Denies: Anorexia, Chills, Fever, Malaise, Weight Change Eyes: Denies: Blurred vision, Cataracts, Conjunctivae Inflammation, Pain, Redness HEENT: Denies: Difficulty Hearing, Difficulty Swallowing, Head Aches, Hearing Changes, Sinus Congestion, Sinus Drainage Cardiovascular: Denies: Chest Pain, Claudication, Orthopnea, Palpitations, Paroxysmal Noc. Dyspnea Respiratory: Reports: Cough, Shortness of Breath, Shortness of breath at rest, Shortness of breath upon exertion, Wheezing. Denies: Sputum production Gastrointestinal: Denies: Abdominal Pain, Constipation, Hematemesis, Hematochezia, Nausea, Vomiting Genitourinary: Denies: Dysuria, Frequency, Incontinence Gynecological: Denies: Breast symptoms, Excessively long or heavy periods Musculoskeletal: Denies: Arm Pain, Back Pain, Joint Pain, Joint stiffness, Joint swelling, Joint Tenderness Skin: Denies: Pruritis, Rash, Wounds Neurological: Denies: Difficulty swallowing, Focal weakness, Numbness, Tingling Psychiatric: Denies: Anxiety, Depression, Homicidal Ideations, Suicidal Ideations Hematologic/ Lymphatic: Denies: Easy Bruising, Easy Bleeding VTE Information - Inpt Only VTE Present on Admission: No VTE Pharm Prophylaxis ordered?: Yes Patient Problems: Active and Suspected Problems (Last Updated 05/27/19 @ 10:29 by Nella Ricks) Chest pain (Acute) Syncope (Acute) Bronchitis (Acute) - Physical Exam Vitals/I&O's: Vital Signs Temp Pulse Resp BP Pulse Ox 98.9 F 73 18 162/86 H 98 08/08/19 00:21 08/08/19 00:57 08/08/19 00:57 08/08/19 00:39 08/08/19 00:21 Oxygen Flow Rate (L/min) 2 Oxygen Delivery Method Nasal Cannula Weight: 118.3 kg Body Mass Index (BMI) 44.7 General: Alert, Oriented x3, Cooperative, No apparent distress, - - on 2L oxygen, comfortable HEENT: Atraumatic, PERRLA, EOMI, Normocephalic Oral: Moist Mucosa Neck: Supple Lungs: Normal air movement, Diminished Cardiovascular: Regular rate, Regular Rhythm, Normal S1, Normal S2, No murmurs Abdomen: Bowel Sounds Present, Soft, Non Tender, Non-Distended, No Hepato- splenomegaly, Obese Extremities: Edema - Trace bilateral pedal edema Skin: No rashes, No breakdown Musculoskeletal: No Tenderness to Palpation of Joints or Extremities Lymphatic: No Cervical, Supraclavicular, or Inguinal Adenopathy Neurological: Cranial nerves II-XII grossly intact, Neuro grossly intact Psych/Mental Status: Normal Affect, Appropriate Microbiology Past 72 Hours 08/08/19 00:55 Mucosa - Nasopharyngeal Influenza Types A,B Direct FA (ABDIRIZAK) - Final Laboratory Results 08/08/19 00:33: WBC 7.2, RBC 4.69, Hgb 14.7, Hct 42.6, MCV 90.8, MCH 31.3, MCHC 34.5, RDW Std Deviation 41.0, RDW Coeff of Dasia 12.3, Plt Count 231, MPV 9.9, Im mature Gran % (Auto) 0.400, Neut % (Auto) 68.5, Lymph % (Auto) 17.5 L, [place] % (Auto) 10.2 H, Eos % (Auto) 2.8, Baso % (Auto) 0.6, Absolute Neuts (auto) 5.0, Absolute Lymphs (auto) 1.26, Nucleated RBC % 0 08/08/19 00:33: PT 12.2, INR 0.9 08/08/19 00:33: Sodium 139, Potassium 4.0, Chloride 105, Carbon Dioxide 29.0, Anion Gap 5, BUN 16, Creatinine 1.21 H, Estim Creat Clear Calc 34.69, Est GFR (MDRD) Af Amer 56 L, Est GFR (MDRD) Non-Af 46 L, BUN/Creatinine Ratio 13.2, Glucose 128 H, Calcium 9.2, Troponin I < 0.015 Assessment/Plan All Active Problems (Last Updated 05/27/19 @ 10:29 by Nella Ricks) Chest pain (Acute) Syncope (Acute) Bronchitis (Acute) Skin lesion of face (Acute) Abnormal EKG (Acute) 74 year old F with PMHx of Hypertension, hypothyroidism, h/o colon CA s/p colectomy who presents with 2 episodes of syncope and chest pain 1. Acute chest pain, atypical, EKG shows no acute ST-T changes, troponin x 1 negative Monitor on telemetry, will trend troponins, cardiology consult Patient states she does not want to have a nuclear stress test as she had one in the past and did not have a pleasant experience. She does not want a treadmill test as she cannot to use the treadmill well. Cannot do a Dobutamine stress test on account of hypertensive urgency Cardiology consult 2. Syncope, recurrent, likely related to Acute kidney injury Will get 2 D-echo, monitor on telemetry, orthostatic vitals 3. Hypertensive urgency secondary to medication noncompliance Admitting blood pressure was more than 200mmHg systolic Will continue on metoprolol, hydralazine prn 3. Recent URI, likely viral, will continue supportive treatment 4. Acute kidney injury, likely pre-renal, admitting Cr 1.28, baseline Cr 0.98 Will continue on gentle fluids, repeat blood work in am 5. Hypothyroidism, continue on levothyroxine 6. Morbid Obesity, BMI 44.8, lifestyle modification recommended 7. DVT PPx- Heparin SC Code Visit OBSV E&M: [id number] Initial observation care L3
--- NOTE | 2019-08-08 02:45 | EKG12_ITS ---
Test Reason : CP ADMIT Blood Pressure : / mmHG Vent. Rate : 066 BPM Atrial Rate : 066 BPM P-R Int : 148 ms QRS Dur : 084 ms QT Int : 406 ms P-R-T Axes : 024 -29 016 degrees QTc Int : 425 ms Normal sinus rhythm T wave abnormality, consider anterior ischemia Abnormal ECG When compared with ECG of 15-FEB-2013 15:39, T wave inversion now evident in Anterior leads Confirmed by LÓPEZ SCALES, COREY ([id number]), editorial clerk KERRI GEE ([id number]) on 08/09/2019 1:26:30 PM Referred By: Sahra Zelaya Confirmed By:VIKKI DAWN MD
--- NOTE | 2019-08-08 02:55 | ECHOCS_ITS ---
Reason For Study: Chest pain Procedure This was a 2D Doppler, Color Flow transthoracic echocardiogram. The study was technically difficult. Exam performed portable in patient room. Left Ventricle Normal LV size. Mild concentric left ventricular hypertrophy. Left ventricular systolic function is normal. The estimated ejection fraction is 65 %. Stage 1 diastolic dysfunction. No regional wall motion abnormalities noted. Right Ventricle Normal RV size. Normal systolic function. Atria Normal left atrium. Normal right atrium. Mitral Valve Normal mitral valve. Tricuspid Valve Normal tricuspid valve. Mild tricuspid valve insufficiency. Pulmonary artery systolic pressure is 35 mmHg. Aortic Valve Normal aortic valve. Pulmonic Valve Normal pulmonic valve. Great Vessels Normal aortic root. The pulmonary artery is normal size. Normal inferior vena cava. Pericardium/Pleural No pericardial effusion. Medication Diluted definity 2ml given slow IV push to enhance endocardial definition. MMode/2D Measurements & Calculations LVIDd: 4.1 cm IVSd: 1.3 cm Ao root diam: 3.0 cm LVIDs: 1.9 cm LVPWd: 1.3 cm LA dimension: 5.1 cm FS: 54.0 % Doppler Measurements & Calculations MV E max ifeanyi: 64.5 cm/sec Lat Peak E' Ifeanyi: 7.6 cm/sec Med Peak E' Ifeanyi: 5.5 cm/sec MV A max ifeanyi: 98.1 cm/sec E/E' lat: 8.4 E/E' med: 11.7 MV E/A: 0.66 Ao V2 max: 175.1 cm/sec LV V1 max: 124.2 cm/sec PA V2 max: 105.8 cm/sec Ao max P.3 mmHg LV V1 max P.2 mmHg TR max ifeanyi: 278.1 cm/sec TR max P.9 mmHg Interpretation Summary Normal LV size. Left ventricular systolic function is normal. Mild concentric left ventricular hypertrophy. The estimated ejection fraction is 65 %. Stage 1 diastolic dysfunction. Mild tricuspid valve insufficiency. Pulmonary artery systolic pressure is 35 mmHg. Contrast injection was performed. Ordering Physician: Sahra Zelaya Referring Physician: Sahra Zelaya Performed By: Caridad Roberts RDCS
[2019-08-08] MEDS: 0.9% Saline Lock 10 ML Syringe IV (04:30)
[2019-08-08] MEDS: 0.9% Normal Saline 1,000 ML 100 ML IV (04:30)
[2019-08-08] MEDS: Levothyroxine 100 MCG Tablet PO (06:28)
[2019-08-08 06:59] LABS: Absolute Lymphocyte Count 0.89 X10^3/uL (0.83-4.51); Absolute Neutrophil Count 4.9 X10^3/uL (2.0-7.7); Basophil# 0.05 X10^3/uL; Basophil% 0.7 % (0-1); Eosinophil# 0.13 X10^3/uL; Eosinophils% 1.9 % (0-5); Hematocrit 40.3 % (37-47); Hemoglobin 13.7 g/dL (12.0-15.0); Lymphocyte # 0.89 X10^3/ul (4.0); Lymphocyte % 13.1 % (19-41); Mean Corpuscular Hgb 31.4 pg (27.0-32.0); Mean Corpuscular Volume 92.4 fL (81-99); Mean Platelet Vol. 10.1 fl (6.2-12.0); Monocyte# 0.76 X10^3/uL; Monocyte% 11.2 % (0-10); NRBC Flagged by Analyzer 0 % (0-5); Neutrophil # 4.94 X10^3/uL (2.7-7.7); Neutrophil % 72.7 % (47-70); Platelet Count 192 K/mm3 (150-450); RBC Distribution Width CV 12.5 % (11.6-14.6); RBC Distribution Width SD 42.3 fl (35.1-43.9); Red Blood Count 4.36 M/mm3 (4.2-5.4); White Blood Count 6.8 K/mm3 (4.4-11.0)
[2019-08-08 07:17] LABS: ALB/GLOB Ratio 0.8 RATIO (0.9-2.4); AST(SGOT) 18 U/L (15-37); Alanine Aminotransfer ALT/SGPT 20 U/L (13-56); Albumin, Serum 3.2 g/dL (3.2-5.0); Alkaline Phosphatase 83 U/L (45-117); Anion Gap 6 (5-15); BUN 13 mg/dL (7-18); BUN/Creat Ratio 11.9 RATIO (10-20); Calcium,Total 8.7 mg/dL (8.5-10.1); Chloride 107 mmol/L (98-107); Creatinine, Serum 1.09 mg/dL (0.55-1.02); EST Glomerular Filtration Rate 52 mL/min (>60); Est Glom Filt Rate - Afr Amer 63 mL/min (>60); Estimated Creatinine Clearance 38.51 ml/min; Globulin 4.2 g/dL (2.2-4.2); Glucose 92 mg/dL (74-106); Potassium 4.2 mmol/L (3.5-5.1); Protein, Total 7.4 g/dL (6.4-8.2); Sodium Level 141 mmol/L (136-145)
--- NOTE | 2019-08-08 07:46 | PCM.CONS.C ---
Reason for Consult Date of Consultation: 08/08/19 Reason for Consultation: Chest pain and syncopal episode History of Present Illness: The patient is a 74 year old F [] Patient is a 74-year-old female who presents with chest tightness. She has been ill for the past 4 days with URI-like illness. She complains of nasal and chest congestion, rhinorrhea, cough, headache. She has had some mild diarrhea. No nausea or vomiting. She developed chest tightness and shortness of breath today which worsened this evening. She apparently got off the couch and then fell to the ground but does not remember falling. From the report it does not look like she lost consciousness. She was being transported to the EMS cart and apparently had brief loss of consciousness. She presented to the emergency room was evaluated. Her vitals were stable her EKG demonstrated normal sinus rhythm with nonspecific ST flattening in the anterior leads. She was admitted to the telemetry care unit. The case was discussed with cardiology by the hospitalist. Past Medical History Allergies/Adverse Reactions: Allergies Penicillins Allergy (Verified 08/08/19 03:30) Hives hydrochlorothiazide Adverse Reaction (Severe, Verified 08/08/19 03:30) Dizziness/Lightheadedness meperidine HCl [From Demerol] Adverse Reaction (Verified 08/08/19 03:30) dizzy Home Medications: Ambulatory Orders Medication Instructions Recorded levothyroxine 100 mcg tablet 100 mcg PO QDAY 02/28/18 Past Medical History (Chronic Problems): Chronic Problems (Last Updated 05/27/19 @ 10:29 by Nella Ricks) Essential hypertension (Chronic) Hypothyroidism (Chronic) Surgical History: cholecystectomy, colectomy - Status post hemorrhoidectomy, thyroidectomy, herniorrhaphy, - Psychiatric History: No pertinent psych hx 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 - *Family History Maternal Family History: Family History (Last Reviewed 05/22/19 @ 07:21 by Nella Ricks) Mother CAD (coronary artery disease) Myocardial infarction, Onset Age: 66 Hypertension Sister CAD (coronary artery disease) Myocardial infarction, Onset Age: 63 Brother Heart disease History of implantable cardioverter-defibrillator (ICD) placement Grandmother Hypertension History Items: High Cholesterol, Heart Disease, Hypertension Paternal Family History: Family History (Last Reviewed 05/22/19 @ 07:21 by Nella Ricks) Mother CAD (coronary artery disease) Myocardial infarction, Onset Age: 66 Hypertension Sister CAD (coronary artery disease) Myocardial infarction, Onset Age: 63 Brother Heart disease History of implantable cardioverter-defibrillator (ICD) placement Grandmother Hypertension History Items: Unknown Lives: Spouse/ Significant Other, With Family Smoking Status: Never smoker Tobacco Use: Non-smoker Alcohol: None Drugs: None Review of Systems - Review of Systems General: Denies: Fever, Night Sweats, Fatigue HEENT: Denies: Vision Change Cardiovascular: Reports: Chest Discomfort, Shortness of Breath, Syncope. Denies: Orthopnea, PND, Peripheral Edema, Palpitations, Lightheadedness, Dizziness, Near Syncope Respiratory: Denies: Cough, Sputum Production, Hemoptysis Gastrointestinal: Denies: Hematemesis, Hematochezia, Melena Genitourinary: Denies: Dysuria, Hematuria Skin: Denies: Rash Neurological: Denies: Dizziness Psychiatric: Denies: Anxiety Endocrine: Denies: Heat Intolerance Hematologic/ Lymphatic: Denies: Lymph Node Enlargement Subjectve: Elderly lady in no distress but mildly short of breath Objective: Vital Signs Temp Pulse Resp BP Pulse Ox 97.8 F 60 16 152/77 H 99 08/08/19 06:55 08/08/19 07:15 08/08/19 06:55 08/08/19 06:55 08/08/19 06:55 Oxygen Flow Rate (L/min) 2 Oxygen Delivery Method Nasal Cannula Weight: 244 lb 7.882 oz Body Mass Index (BMI) 41.9 Intake and Output for Last 24 Hours 08/06/19 08/07/19 08/08/19 23:59 23:59 23:59 Intake Total 1120 / 1120 Balance 1120 / 1120 General: Awake, Alert, Oriented x 3 HEENT: PERRL, EOMI, Sclera Non Icteric Neck: Supple, Good ROM, No Lymph Node Enlargement Lungs: Clear to auscultation Cardiovascular: Regular Rhythm, Normal S1, Normal S2, No Murmurs, No Rubs, No Gallops Vascular: No Carotid Bruits, Normal Femoral Pulses, Normal Radial Pulses, Normal Dorsalis Pedal Pulse, Normal Posterior Tibial Pulses Abdomen: Bowel Sounds Present, Soft, Non Tender, No HSM, No Organomegaly Extremities: No Cyanosis, No Clubbing, No edema Musculoskeletal: No Erythema Skin: No Rashes Lymphatic: No Lymph Node Enlargement Neurological: No Focal Motor or Sensory Deficit Psych/Mental Status: Appropriate 08/08/19 00:33: WBC 7.2, RBC 4.69, Hgb 14.7, Hct 42.6, MCV 90.8, MCH 31.3, MCHC 34.5, Plt Count 231, MPV 9.9, Immature Gran % (Auto) 0.400, Neut % (Auto) 68.5, Lymph % (Auto) 17.5 L, [place] % (Auto) 10.2 H, Eos % (Auto) 2.8, Baso % (Auto) 0.6, Absolute Neuts (auto) 5.0, Nucleated RBC % 0 08/08/19 00:33: PT 12.2, INR 0.9 08/08/19 00:33: Sodium 139, Potassium 4.0, Chloride 105, Carbon Dioxide 29.0, Anion Gap 5, BUN 16, Creatinine 1.21 H, Est GFR (MDRD) Af Amer 56 L, Est GFR (MDRD) Non-Af 46 L, BUN/Creatinine Ratio 13.2, Glucose 128 H, Calcium 9.2, Troponin I < 0.015 08/08/19 03:26: Troponin I < 0.015 08/08/19 06:40: WBC 6.8, RBC 4.36, Hgb 13.7, Hct 40.3, MCV 92.4, MCH 31.4, MCHC 34.0, Plt Count 192, MPV 10.1, Immature Gran % (Auto) 0.400, Neut % (Auto) 72.7 H, Lymph % (Auto) 13.1 L, [place] % (Auto) 11.2 H, Eos % (Auto) 1.9, Baso % (Auto) 0.7, Absolute Neuts (auto) 4.9, Nucleated RBC % 0 08/08/19 06:40: Sodium 141, Potassium 4.2, Chloride 107, Carbon Dioxide 28.0, Anion Gap 6, BUN 13, Creatinine 1.09 H, Est GFR (MDRD) Af Amer 63, Est GFR (MDRD) Non-Af 52 L, BUN/Creatinine Ratio 11.9, Glucose 92, Calcium 8.7, Total Bilirubin 0.40, Troponin I < 0.015 Rhythm: EKG: Normal sinus rhythm with nonspecific ST changes. Follow-up EKG demonstrates normal sinus rhythm with T wave flattening anteriorly ECHO: Stress Test: Cardiac Cath: PCI: CT Surgery: Holter monitor: EPS: PPM: CXR: Chest CT Scan: Assessment/Plan 1. Chest tightness Patient presents with some chest tightness the etiology of which is unclear. She has had an upper respiratory tract infection and it is not clear whether this is related to that. Her cardiac enzymes thus far have been normal with subtle EKG changes. It may be prudent to have her recover from the upper respiratory tract infection and then evaluate the above if no other etiology is elucidated. This may include some form of stress testing. At the moment however she is wheezing and besides she does not want to be subjected to any testing that would involve going through a tube. I would recommend a d-dimer to exclude a pulmonary embolism 2. Syncope/near syncope The above was not witnessed for the first episode with a second episode apparently was witnessed. I would like us to exclude a pulmonary embolism. She does not want to go through a CAT scan if possible, so I will like us to obtain a d-dimer and an echocardiogram to assess her left and right ventricular function. Her obesity however may pose a problem with adequate visualization of the right ventricle. Depending on the findings from these 2 tests further recommendations will be made. Thank you for allowing me to participate in the care of your patient. Please don't hesitate to call if any issues arise
--- NOTE | 2019-08-08 10:05 | CT_ITS ---
STUDY: CTA CHEST REASON FOR EXAM: Female, 74 years old. ELEVATED D-DIMER,COUGH,CONGESTION,SHORT OF BREATH,SYNCOPE EPISODE,CHEST TIGHTNESS -- HX-COON CA W/ COLECTOMY -- SURG-GB,THYROIDECTOMY RADIATION DOSAGE (If Supplied By Facility): CTDIvol = ( 17.6 ) mGy, DLP = ( 595.53 ) mGycm TECHNIQUE: The examination was performed with the intravenous administration of 100CC ISOVUE 370. Post-processing of the angiographic images was performed, with multiplanar reformation and 3D reconstruction. Individualized dose optimization techniques were used for this CT. COMPARISON: None. FINDINGS: Normal enhancement of the main pulmonary artery and right and left pulmonary arteries. Normal enhancement of the bilateral peripheral pulmonary arteries. Single filling defect within a subsegmental branch in the right middle lobe on image 85 worrisome for pulmonary embolism. Normal thoracic aorta and visualized great vessels. There is no demonstrated aortic dissection. Normal heart and pericardium. Normal mediastinum. Normal hilar regions. Normal visualized trachea and bronchi. The lungs are well expanded. Normal pulmonary parenchyma. Normal pleura. Normal chest wall structures. Normal osseous structures. Normal visualized upper abdomen. CT/CTA Chest W/WO Contrast IMPRESSION: Positive for single subsegmental pulmonary embolism in the right middle lobe. Electronically Signed: Yariel Brown MD at 12:30 EST Tel , Service support ,
[2019-08-08] MEDS: LORazepam 2 MG/ML Syringe 0.5 MG IV (10:52)
--- NOTE | 2019-08-08 13:02 | PN_ITS ---
<Fabian Ruiz - Last Filed: 08/08/19 13:02> Patient Problems: Active and Suspected Problems (Last Updated 05/27/19 @ 10:29 by Nella Ricks) Chest pain (Acute) Syncope (Acute) Bronchitis (Acute) Reason for Visit: syncope, cp Subjective: no CP, dizziness, LH. Mild SOB. Very anxious about CTA due to claustophobia, however she did get through it and she did have a PE. She remains on o2. Vitals/I&O's: Vital Signs Temp Pulse Resp BP Pulse Ox 97.8 F 71 18 152/77 H 96 08/08/19 06:55 08/08/19 11:59 08/08/19 07:26 08/08/19 06:55 08/08/19 07:26 Oxygen Flow Rate (L/min) 2 Oxygen Delivery Method Nasal Cannula Weight: 244 lb 7.882 oz Body Mass Index (BMI) 41.9 Intake and Output for Last 24 Hours 08/06/19 08/07/19 08/08/19 23:59 23:59 23:59 Intake Total 1240 / 1240 Balance 1240 / 1240 General: Alert, Oriented x3, Cooperative HEENT: Atraumatic, PERRLA, EOMI, Normocephalic Neck: Supple, No JVD, Negative Carotid Bruits Lungs: Clear to auscultation, Normal air movement Cardiovascular: Regular rate, No murmurs Abdomen: Bowel Sounds Present, Soft, Non Tender Extremities: No edema, Capillary Refill Less than 3 Seconds Skin: No rashes, No breakdown Musculoskeletal: No Tenderness to Palpation of Joints or Extremities Neurological: Cranial nerves II-XII grossly intact Psych/Mental Status: Normal Affect, Appropriate, Alert and oriented to time, place, person, mood and affect Microbiology Past 72 Hours 08/08/19 00:55 Mucosa - Nasopharyngeal Influenza Types A,B Direct FA (ABDIRIZAK) - Final Laboratory Results 08/08/19 00:33: WBC 7.2, RBC 4.69, Hgb 14.7, Hct 42.6, MCV 90.8, MCH 31.3, MCHC 34.5, RDW Std Deviation 41.0, RDW Coeff of Dasia 12.3, Plt Count 231, MPV 9.9, Immature Gran % (Auto) 0.400, Neut % (Auto) 68.5, Lymph % (Auto) 17.5 L, Bosque % (Auto) 10.2 H, Eos % (Auto) 2.8, Baso % (Auto) 0.6, Absolute Neuts (auto) 5.0, Absolute Lymphs (auto) 1.26, Nucleated RBC % 0 08/08/19 00:33: PT 12.2, INR 0.9 08/08/19 00:33: Sodium 139, Potassium 4.0, Chloride 105, Carbon Dioxide 29.0, Anion Gap 5, BUN 16, Creatinine 1.21 H, Estim Creat Clear Calc 34.69, Est GFR (MDRD) Af Amer 56 L, Est GFR (MDRD) Non-Af 46 L, BUN/Creatinine Ratio 13.2, Glucose 128 H, Calcium 9.2, Troponin I < 0.015 08/08/19 03:26: Troponin I < 0.015 08/08/19 06:40: WBC 6.8, RBC 4.36, Hgb 13.7, Hct 40.3, MCV 92.4, MCH 31.4, MCHC 34.0, RDW Std Deviation 42.3, RDW Coeff of Dasia 12.5, Plt Count 192, MPV 10.1, Immature Gran % (Auto) 0.400, Neut % (Auto) 72.7 H, Lymph % (Auto) 13.1 L, Bosque % (Auto) 11.2 H, Eos % (Auto) 1.9, Baso % (Auto) 0.7, Absolute Neuts (auto) 4.9, Absolute Lymphs (auto) 0.89, Nucleated RBC % 0 08/08/19 06:40: Sodium 141, Potassium 4.2, Chloride 107, Carbon Dioxide 28.0, Anion Gap 6, BUN 13, Creatinine 1.09 H, Estim Creat Clear Calc 38.51, Est GFR (MDRD) Af Amer 63, Est GFR (MDRD) Non-Af 52 L, BUN/Creatinine Ratio 11.9, Glucose 92, Calcium 8.7, Total Bilirubin 0.40, AST 18, ALT 20, Alkaline Phosphatase 83, Troponin I < 0.015, Total Protein 7.4, Albumin 3.2, Globulin 4.2, Albumin/Globulin Ratio 0.8 L 08/08/19 06:40: D-Dimer Quant (PE/DVT) 1.20 H* Current Medications Acetaminophen (Tylenol) 650 mg PO Q6H PRN PRN PRN Reason: Pain Score 1-5/Temp > 100.7 F Al Hydroxide/Mg Hydroxide (Mylanta Ii) 30 ml PO Q6H PRN PRN PRN Reason: Gastric Burning Albuterol Sulfate (Ventolin Aerosols) 2.5 mg INHALATION Q2H PRN PRN PRN Reason: SOB/Wheezing Albuterol/Ipratropium (Duoneb) 3 ml INHALATION Q4HWA.RT [facility] Last Admin: 08/08/19 11:15 Dose: Not Given Documented by: Hydralazine HCl (Apresoline Iv) 5 mg IV Q6H PRN PRN PRN Reason: BLOOD PRESSURE Levothyroxine Sodium (Synthroid) 100 mcg PO DAILY@0600 [facility] Last Admin: 08/08/19 06:28 Dose: 100 mcg Documented by: Melatonin (Melatonin) 3 mg PO QHS PRN PRN PRN Reason: INSOMNIA Morphine Sulfate () 2 mg IV Q3H PRN PRN PRN Reason: Pain Score 6-10/10 Nitroglycerin (Nitrostat) 0.4 mg SUBLINGUAL Q5M PRN PRN Reason: CARDIAC/CHEST PAIN Ondansetron HCl (Zofran) 4 mg IV Q8H PRN PRN PRN Reason: NAUSEA/VOMITING Senna/Docusate Sodium (Senokot-S, Melinda-Colace) 2 tablet PO BID PRN PRN PRN Reason: Constipation Sodium Chloride () 10 - 40 ml IV UD PRN PRN Reason: SALINE FLUSH Last Admin: 08/08/19 04:30 Dose: 10 ml Documented by: STROKE Vital Signs/Narrative: Vital Signs Pulse 08/08/19 11:59 71 Medical Necessity - Tobacco Use Smoking Status: Never smoker Tobacco Use: Non-smoker Assessment/Plan All Active Problems (Last Updated 05/27/19 @ 10:29 by Nella Ricks) Chest pain (Acute) Syncope (Acute) Bronchitis (Acute) Skin lesion of face (Acute) Abnormal EKG (Acute) 1. CP/syncope 2/2 acute PE - started on lovenox. Echo done. Cardiology following. No CP/LH today. Trop neg. 2. CHAU improving. 3. HTN urgency - improved 4. Hypohyroidism - continue synthroid. 5. Morbid obesity - customer services coordinator eval DVT ppx: lovenox will need transition to po OAC. This patient was seen by Fabian Ruiz PA-C under the supervision of Dr. Goddard. <Kaye Goddard - Last Filed: 08/08/19 15:23> Vitals/I&O's: Vital Signs Temp Pulse Resp BP Pulse Ox 98.8 F 71 17 168/88 H 95 08/08/19 13:43 08/08/19 13:43 08/08/19 13:43 08/08/19 13:43 08/08/19 13:43 Oxygen Flow Rate (L/min) 2 Oxygen Delivery Method Room Air Weight: 244 lb 7.882 oz Body Mass Index (BMI) 41.9 Intake and Output for Last 24 Hours 08/06/19 08/07/19 08/08/19 23:59 23:59 23:59 Intake Total 3.33 / 2073.33 Balance 3.33 / 3.33 Microbiology Past 72 Hours 08/08/19 00:55 Mucosa - Nasopharyngeal Influenza Types A,B Direct FA (ABDIRIZAK) - Final Laboratory Results 08/08/19 00:33: WBC 7.2, RBC 4.69, Hgb 14.7, Hct 42.6, MCV 90.8, MCH 31.3, MCHC 34.5, RDW Std Deviation 41.0, RDW Coeff of Dasia 12.3, Plt Count 231, MPV 9.9, Immature Gran % (Auto) 0.400, Neut % (Auto) 68.5, Lymph % (Auto) 17.5 L, Bosque % (Auto) 10.2 H, Eos % (Auto) 2.8, Baso % (Auto) 0.6, Absolute Neuts (auto) 5.0, Absolute Lymphs (auto) 1.26, Nucleated RBC % 0 08/08/19 00:33: PT 12.2, INR 0.9 08/08/19 00:33: Sodium 139, Potassium 4.0, Chloride 105, Carbon Dioxide 29.0, Anion Gap 5, BUN 16, Creatinine 1.21 H, Estim Creat Clear Calc 34.69, Est GFR (MDRD) Af Amer 56 L, Est GFR (MDRD) Non-Af 46 L, BUN/Creatinine Ratio 13.2, Glucose 128 H, Calcium 9.2, Troponin I < 0.015 08/08/19 03:26: Troponin I < 0.015 08/08/19 06:40: WBC 6.8, RBC 4.36, Hgb 13.7, Hct 40.3, MCV 92.4, MCH 31.4, MCHC 34.0, RDW Std Deviation 42.3, RDW Coeff of Dasia 12.5, Plt Count 192, MPV 10.1, Immature Gran % (Auto) 0.400, Neut % (Auto) 72.7 H, Lymph % (Auto) 13.1 L, Bosque % (Auto) 11.2 H, Eos % (Auto) 1.9, Baso % (Auto) 0.7, Absolute Neuts (auto) 4.9, Absolute Lymphs (auto) 0.89, Nucleated RBC % 0 08/08/19 06:40: Sodium 141, Potassium 4.2, Chloride 107, Carbon Dioxide 28.0, Anion Gap 6, BUN 13, Creatinine 1.09 H, Estim Creat Clear Calc 38.51, Est GFR (MDRD) Af Amer 63, Est GFR (MDRD) Non-Af 52 L, BUN/Creatinine Ratio 11.9, Glucose 92, Calcium 8.7, Total Bilirubin 0.40, AST 18, ALT 20, Alkaline Phosphatase 83, Troponin I < 0.015, Total Protein 7.4, Albumin 3.2, Globulin 4.2, Albumin/Globulin Ratio 0.8 L 08/08/19 06:40: D-Dimer Quant (PE/DVT) 1.20 H* Current Medications Acetaminophen (Tylenol) 650 mg PO Q6H PRN PRN PRN Reason: Pain Score 1-5/Temp > 100.7 F Last Admin: 08/08/19 13:55 Dose: 650 mg Documented by: Al Hydroxide/Mg Hydroxide (Mylanta Ii) 30 ml PO Q6H PRN PRN PRN Reason: Gastric Burning Albuterol Sulfate (Ventolin Aerosols) 2.5 mg INHALATION Q2H PRN PRN PRN Reason: SOB/Wheezing Albuterol/Ipratropium (Duoneb) 3 ml INHALATION Q4HWA.RT [facility] Last Admin: 08/08/19 15:06 Dose: 3 ml Documented by: Hydralazine HCl (Apresoline Iv) 5 mg IV Q6H PRN PRN PRN Reason: BLOOD PRESSURE Levothyroxine Sodium (Synthroid) 100 mcg PO DAILY@0600 [facility] Last Admin: 08/08/19 06:28 Dose: 100 mcg Documented by: Melatonin (Melatonin) 3 mg PO QHS PRN PRN PRN Reason: INSOMNIA Morphine Sulfate () 2 mg IV Q3H PRN PRN PRN Reason: Pain Score 6-10/10 Nitroglycerin (Nitrostat) 0.4 mg SUBLINGUAL Q5M PRN PRN Reason: CARDIAC/CHEST PAIN Ondansetron HCl (Zofran) 4 mg IV Q8H PRN PRN PRN Reason: NAUSEA/VOMITING Senna/Docusate Sodium (Senokot-S, Melinda-Colace) 2 tablet PO BID PRN PRN PRN Reason: Constipation Sodium Chloride () 10 - 40 ml IV UD PRN PRN Reason: SALINE FLUSH Last Admin: 08/08/19 04:30 Dose: 10 ml Documented by: STROKE Vital Signs/Narrative: Vital Signs Temp Pulse Resp BP Pulse Ox 08/08/19 13:43 98.8 F 71 17 168/88 H 95 08/08/19 11:59 71 Assessment/Plan Patient seen by Fabian Ruiz PA-C under my supervision Patient was admitted with a complaint of chest pain. He was admitted for chest pain to rule out ACS. However d-dimer was elevated so she had a CTA today which was positive for small segmental right-sided PE. Of note patient does have a history of colon cancer x2 status post colectomy. Records were reviewed and she last had a colonoscopy in 2017 at which point it was recommended that she have a follow-up colonoscopy in 3 years time which will be 2020. Duplex was ordered of her lower extremities which was negative for DVT. Patient seen and examined. She had no complaints. Chest pain had resolved. She did have an episode of syncope also at home as well. Review systems otherwise negative. Labs and vitals reviewed. Home medication reviewed and reconciled. o/e: Vital Signs Height 5 ft 4 in Weight: 244 lb 7.882 oz Weight in Pounds 244.5 lbs Pulse Ox 95 Temperature 98.8 F Pulse Rate 71 Respiratory Rate 17 Blood Pressure [2nd BP] 158/86 Blood Pressure 168/88 Blood Pressure Position [2nd Semi-Fowlers BP] Blood Pressure Position Semi-Fowlers General: Alert, Oriented x3, Cooperative HEENT: Atraumatic, PERRLA, EOMI, Normocephalic Neck: Supple, No JVD, Negative Carotid Bruits Lungs: Clear to auscultation, Normal air movement Cardiovascular: Regular rate, No murmurs, normal S1 and S2 Abdomen: Bowel Sounds Present, Soft, Non Tender Extremities: No edema, Capillary Refill Less than 3 Seconds Skin: No rashes, No breakdown Musculoskeletal: No Tenderness to Palpation of Joints or Extremities Neurological: Cranial nerves II-XII grossly intact Psych/Mental Status: Normal Affect, Appropriate, Alert and oriented to time, place, person, mood and affect We will start patient on Eliquis. 2D echo showed normal ventricular size and mild concentric left ventricular hypertrophy with left ventricular systolic function which was normal and estimated EF of 65% with stage I diastolic dysfunction, and no regional wall motion abnormalities noted. She received a dose of therapeutic Lovenox after CTA was positive for PE. Patient counseled that she will need to follow-up with Dr. Corrales on outpatient basis to have a follow-up colonoscopy in light of her having had an unprovoked PE. Rest of management as per Fabian Ruiz PA-C's notes which I reviewed and endorsed. Code Visit OBSV E&M: 67878 Subsequent observation care L2
--- NOTE | 2019-08-08 13:09 | VDLE_ITS ---
Reason For Study: PE RIGHT LEFT GSV is normal. GSV is normal. CFV is compressible, spontaneous, phasic, CFV is compressible, spontaneous, phasic, competent and demonstrates normal competent, and demonstrates normal augmentation. augmentation. FV is compressible, spontaneous, phasic, FV is compressible, spontaneous, phasic, competent and demonstrates normal competent and demonstrates normal augmentation. augmentation. POP V is compressible, spontaneous, phasic, POP V is compressible, spontaneous, phasic, competent and demonstrates normal competent and demonstrates normal augmentation. augmentation. T/P Trunk is compressible. T/P Trunk is compressible. PTV is compressible. PTV is compressible. RT PerV is compressible. LT PerV is compressible. Procedure Exam performed portable in patient room. The exam was diagnostic. A preliminary report was called and/or faxed to Brenda CERVANTES. Interpretation Summary Deep veins of the lower extremities are bilaterally patent and compressible segmentally. There is no evidence of deep vein thrombosis on either side. Valvular competence appears intact within the proximal deep venous systems bilaterally. The great saphenous veins appear bilaterally patent and compressible segmentally. Ordering Physician: Kaye Goddard Performed By: Aaron Bauman RVT
[2019-08-08] MEDS: Enoxaparin 100 MG/ML Syringe SC (13:46)
[2019-08-08] MEDS: Acetaminophen 325 MG Tablet 650 MG PO (13:55)
--- NOTE | 2019-08-08 14:48 | CHAPLAIN ---
Type of Pastoral Visit _x__ Initial Visit ___ Follow-up Visit ___ On-call Visit ___ General Patient Visit ___ Spiritual Assessment ___ Family Conference ___ Bereavement ___ Rapid Response ___ Code Blue ___ Other (describe below) Pastoral Care Referral From _x__ Patient ___ Family ___ Nurse ___ Physician ___ Music Arranger ___ Formula Room Worker ___ Other (describe below) Sacrament/Intervention _x__ Active listening ___ Anointing ___ Confucianism ___ Bereavement ___ Communion ___ Ksenia exploration ___ ___ Life review _x__ Prayer ___ Reconciliation ___ Sacrament of Sick ___ Supportive presence ___ Wedding ___ Other (describe below) Pastoral Comments several family members are with patient in the room
[2019-08-09] VITALS (8 sets, daily range): BP systolic 147–164; BP diastolic 73–96; PULSE 63–78; RESP 16–18; TEMP 36.3–36.4; O2SAT 95–96
[2019-08-09] MEDS: Acetaminophen 325 MG Tablet 650 MG PO ×2 (00:51→10:56)
[2019-08-09] MEDS: Levothyroxine 100 MCG Tablet PO (05:00)
[2019-08-09] MEDS: APIXABAN 5 MG TABLET 10 MG PO (05:00)
[2019-08-09 05:54] LABS: Anion Gap 3 (5-15); BUN 15 mg/dL (7-18); BUN/Creat Ratio 12.9 RATIO (10-20); Calcium,Total 8.6 mg/dL (8.5-10.1); Chloride 108 mmol/L (98-107); Creatinine, Serum 1.16 mg/dL (0.55-1.02); EST Glomerular Filtration Rate 48 mL/min (>60); Est Glom Filt Rate - Afr Amer 59 mL/min (>60); Estimated Creatinine Clearance 36.19 ml/min; Glucose 110 mg/dL (74-106); Potassium 4.4 mmol/L (3.5-5.1); Sodium Level 138 mmol/L (136-145)
[2019-08-09] MEDS: Ipratropium/Albuterol Sulfate 3 ML AMPUL.NEB INHALATION ×2 (07:08→11:14)
--- NOTE | 2019-08-09 09:04 | CASEMGMT ---
Pt to be sent home on Eliquis at discharge and med already e-scribed to [facility] [place]. Call to pharmacist at [facility] and he states that pt's co-pay is $15 at this time. Pt updated at this time and provided with $10 co-pay card at this time. Pt voices no further questions/concerns/needs at this time. Princess CERVANTES CM
--- NOTE | 2019-08-09 09:28 | CASEMGMT ---
Case Management Progress Note: Went to patient bedside and introduced self and role. Explained and reviewed YEN form with patient regarding her current treatment this hospital stay. Informed Outpatient billing is determined by her insurance policy and continual review is conducted to determine any changes in condition that may warrant Inpatient status. Patient acknowledged and questions addressed. States her handles all the insurance/finances and if CM can re-explain when returns. Cm informed patient to notify nurse when her returns to bedside to re-explain YEN form with him. Patient signed YEN form which was placed in hard chart and copy provided to the patient. Priyanka Hare RNCM
[2019-08-09] MEDS: hydrALAZINE 20 MG/ML Vial 5 MG IV (10:56)
[2019-08-09] MEDS: 0.9% Saline Lock 10 ML Syringe IV (10:56)
--- NOTE | 2019-08-09 11:16 | DCINST_ITS ---
- Discharge Diagnoses Current Active Problems: Current Active and Chronic Problems (Last Updated 05/27/19 @ 10:29 by Nella Ricks) Chest pain (Acute) Syncope (Acute) Bronchitis (Acute) You will use the following diet at home:: Cardiac Your food should be the consistency of: Regular Your liquids should be the consistency of: Regular/Thin Discharge Activity: Return to Normal Activity Allergies/Adverse Reactions: Allergies Penicillins Allergy (Verified 08/08/19 03:30) Hives hydrochlorothiazide Adverse Reaction (Severe, Verified 08/08/19 03:30) Dizziness/Lightheadedness meperidine HCl [From Demerol] Adverse Reaction (Verified 08/08/19 03:30) dizzy Medications to take at Discharge levothyroxine 100 mcg tablet 100 mcg PO QDAY 02/28/18 Apixaban [Eliquis] 10 mg PO BID #72 tab 08/09/19 The following prescriptions were given: Apixaban [Eliquis] 10 mg PO BID #72 tab Transmission Status: Received by [facility]/pharmacy #[id number] Primary Care Physician: Jerel Resendez MD [Primary Care Provider] - Please follow up with your Primary Care Physician in: 1 week Test Results: Test results from this visit will be discussed in further detail at your follow- up appointment, if applicable. Please Follow Up With: Inder Estrada MD When: as directed Proposed Discharge Date: 08/09/19
--- NOTE | 2019-08-09 15:16 | PCM.DC.SUM ---
<Fabian Ruiz - Last Filed: 08/09/19 15:16> Discharge Date and Diagnosis Date of Admission: 08/08/19 Date of Discharge: 08/09/19 - Primary Discharge Diagnosis Chest pain, syncope, 2/2 acute PE HTN urgency Hypothyroidism Morbid obesity - Secondary Discharge Diagnosis Chronic Problems (Last Updated 05/27/19 @ 10:29 by Nella Ricks) Essential hypertension (Chronic) Hypothyroidism (Chronic) Hospital Course and Treatment Imaging Results: IMAGING: RAD/Chest 1 View (Portable) IMPRESSION: Normal x-ray examination of the chest. Echo: Interpretation Summary Normal LV size. Left ventricular systolic function is normal. Mild concentric left ventricular hypertrophy. The estimated ejection fraction is 65 %. Stage 1 diastolic dysfunction. Mild tricuspid valve insufficiency. Pulmonary artery systolic pressure is 35 mmHg. Contrast injection was performed. CT/CTA Chest W/WO Contrast IMPRESSION: Positive for single subsegmental pulmonary embolism in the right middle lobe. Venous duplex: Interpretation Summary Deep veins of the lower extremities are bilaterally patent and compressible segmentally. There is no evidence of deep vein thrombosis on either side. Valvular competence appears intact within the proximal deep venous systems bilaterally. The great saphenous veins appear bilaterally patent and compressible segmentally. Consults: Cardiology - Natalie Operations: None, - - Laparoscopic ventral incisional hernia repair Procedures: 2-D Echocardiogram Summary of Care Provided: Hospital Course: The patient is a 74 year old F with pmhx of morbid obesity, hypothyroidism, htn who presented to the ER with c/o chest pain for one day and a syncopal episode. She passed out when she stood up. She described the chest pain as tightness with SOB. In the ER EKG was negative, trop was negative, CXR was negative, blood pressure was 201/99 however D dimer was elevated. She was admitted to the PCU and cardiology was consulted and CTA was obtained. CTA showed acute PE. She was started on eliquis. She had an echo that was unremarkable. She was weaned off O2 at rest and with ambulation. Her BP improved without additional agents, likely elevated 2/2 PE - however this will need trended at follow up. She was discharged home in stable condition. She will follow up with PCP in 1-2 weeks, and follow up with cardiology as directed. This patient was seen by Fabian Ruiz PA-C under the supervision of Doctor Nitza. [] - Physical Exam Vitals/I&O's: Vital Signs Temp Pulse Resp BP Pulse Ox 97.4 F L 78 16 147/73 H 95 08/09/19 10:53 08/09/19 11:14 08/09/19 11:14 08/09/19 11:52 08/09/19 11:14 Oxygen Flow Rate (L/min) 2 Oxygen Delivery Method Room Air Weight: 244 lb 7.882 oz Body Mass Index (BMI) 41.9 Intake and Output for Last 24 Hours 08/07/19 08/08/19 08/09/19 23:59 23:59 23:59 Intake Total 2993.33 / 2993.33 320 / 320 Balance 2993.33 / 2993.33 320 / 320 General: Alert, Oriented x3, Cooperative HEENT: Atraumatic, PERRLA, EOMI, Normocephalic Neck: Supple, No JVD, Negative Carotid Bruits Lungs: Clear to auscultation, Normal air movement Cardiovascular: Regular rate, No murmurs Abdomen: Bowel Sounds Present, Soft, Non Tender Extremities: No edema, Capillary Refill Less than 3 Seconds Skin: No rashes, No breakdown Musculoskeletal: No Tenderness to Palpation of Joints or Extremities Neurological: Cranial nerves II-XII grossly intact Psych/Mental Status: Normal Affect, Appropriate, Alert and oriented to time, place, person, mood and affect Microbiology Past 72 Hours 08/08/19 00:55 Mucosa - Nasopharyngeal Influenza Types A,B Direct FA (ABDIRIZAK) - Final Laboratory Results 08/09/19 05:26: Sodium 138, Potassium 4.4, Chloride 108 H, Carbon Dioxide 27.0, Anion Gap 3 L, BUN 15, Creatinine 1.16 H, Estim Creat Clear Calc 36.19, Est GFR (MDRD) Af Amer 59 L, Est GFR (MDRD) Non-Af 48 L, BUN/Creatinine Ratio 12.9, Glucose 110 H, Calcium 8.6 Discharge Diet: Low fat/ Low Cholesterol, 2000 mg Sodium Diet Discharge Activity: Return to Normal Activity Home Medications: Medications to take at Discharge levothyroxine 100 mcg tablet 100 mcg PO QDAY 02/28/18 Apixaban [Eliquis] 10 mg PO BID #72 tab 08/09/19 Following Prescrptions Were Given to Patient: Apixaban [Eliquis] 10 mg PO BID #72 tab Transmission Status: Received by [id number] Primary Care Physician: Jerel Resendez MD [Primary Care Provider] - Please follow up with your Primary Care Physician in: 1 week Please Follow Up With: Inder Estrada MD When: as directed Disposition: Home Minutes spent on discharge:: 35 Patient Condition:: Stable Medical Necessity - Tobacco Use Smoking Status: Never smoker Tobacco Use: Non-smoker Meaningful Use Info Meaningful Use Diagnoses (Choose all that apply): VTE - VTE Anticoag overlap given w/in hospital stay or rx'd at dc?: No Pt receive overlap for 5 days?: No Reason overlap not ordered, prescribed, or given for 5 days: Procedure Not Indicated <Kaye Goddard - Last Filed: 08/09/19 16:07> Discharge Date and Diagnosis - Secondary Discharge Diagnosis Chronic Problems (Last Updated 05/27/19 @ 10:29 by Nella Ricks) Essential hypertension (Chronic) Hypothyroidism (Chronic) Hospital Course and Treatment Summary of Care Provided: Patient seen by Fabian Ruiz PA-C under my supervision Patient was admitted with a complaint of chest pain. She was admitted for chest pain to rule out ACS. However d-dimer was elevated so she had a CTA today which was positive for small segmental right-sided PE. Of note patient does have a history of colon cancer x2 status post colectomy. Records were reviewed and she last had a colonoscopy in 2016 at which point it was recommended that she have a follow-up colonoscopy in 3 years time which will be 2019. Duplex was ordered of her lower extremities which was negative for DVT. 2D echo showed EF of 65% with mild concentric left ventricular hypertrophy and stage I diastolic dysfunction with no regional wall motion abnormalities seen. Patient was started on Lovenox initially and then transitioned to p.o. Eliquis. She remained stable and was discharged home on 08/09/2019 with a prescription for p.o. Eliquis 10 mg twice daily for the next 7 days and then to switch to 5 mg twice daily. She is follow-up with her primary care doctor and is to follow-up with general surgery for follow-up colonoscopy which was scheduled for 2019 on account of previous history of colon cancer with colectomy. Patient seen and examined. She had no complaints. Review of symptoms otherwise negative. Labs and vitals reviewed. Home medication reviewed and reconciled. o/e: Vital Signs Height 5 ft 4 in Weight: 244 lb 7.882 oz Weight in Pounds 244.5 lbs Pulse Ox 95 Temperature 97.4 F Pulse Rate 78 Respiratory Rate 16 Blood Pressure [2nd BP] 147/73 Blood Pressure 164/96 Blood Pressure Position [2nd Semi-Fowlers BP] Blood Pressure Position Semi-Fowlers General: Alert, Oriented x3, Cooperative HEENT: Atraumatic, PERRLA, EOMI, Normocephalic Neck: Supple, No JVD, Negative Carotid Bruits Lungs: Clear to auscultation, Normal air movement Cardiovascular: Regular rate, No murmurs, normal S1 and S2 Abdomen: Bowel Sounds Present, Soft, Non Tender Extremities: No edema, Capillary Refill Less than 3 Seconds Skin: No rashes, No breakdown Musculoskeletal: No Tenderness to Palpation of Joints or Extremities Neurological: Cranial nerves II-XII grossly intact Psych/Mental Status: Normal Affect, Appropriate, Alert and oriented to time, place, person, mood and affect Plan as above. - Physical Exam Vitals/I&O's: Vital Signs Temp Pulse Resp BP Pulse Ox 97.4 F L 78 16 147/73 H 95 08/09/19 10:53 08/09/19 11:14 08/09/19 11:14 08/09/19 11:52 08/09/19 11:14 Oxygen Flow Rate (L/min) 2 Oxygen Delivery Method Room Air Weight: 244 lb 7.882 oz Body Mass Index (BMI) 41.9 Intake and Output for Last 24 Hours 08/07/19 08/08/19 08/09/19 23:59 23:59 23:59 Intake Total 2993.33 / 2993.33 320 / 320 Balance 2993.33 / 2993.33 320 / 320 Microbiology Past 72 Hours 08/08/19 00:55 Mucosa - Nasopharyngeal Influenza Types A,B Direct FA (ABDIRIZAK) - Final Laboratory Results 08/09/19 05:26: Sodium 138, Potassium 4.4, Chloride 108 H, Carbon Dioxide 27.0, Anion Gap 3 L, BUN 15, Creatinine 1.16 H, Estim Creat Clear Calc 36.19, Est GFR (MDRD) Af Amer 59 L, Est GFR (MDRD) Non-Af 48 L, BUN/Creatinine Ratio 12.9, Glucose 110 H, Calcium 8.6 Code Visit OBSV E&M: [id number] Observation care discharge
== END 2019-08-09 12:56 | disposition home or self-care (01) ==
LOC: ED 01:31 → PCU 02:25
PROVIDERS: Internal Medicine Cardiovascular Disease; Physician Assistant; Admitting Provider Internal Medicine; Emergency Provider Emergency Medicine; Family Provider Family Medicine; PCP Family Medicine; Referring Provider Internal Medicine; Visit Provider Student in an Organized Health Care Education/Training Program
DX: I26.99 Other pulmonary embolism without acute cor pulmonale (principal); R55 Syncope and collapse; E66.01 Morbid (severe) obesity due to excess calories; E03.9 Hypothyroidism, unspecified; I16.0 Hypertensive urgency; R19.7 Diarrhea, unspecified; E78.5 Hyperlipidemia, unspecified; I10 Essential (primary) hypertension; I07.1 Rheumatic tricuspid insufficiency; R94.31 Abnormal electrocardiogram [ECG] [EKG]; N17.9 Acute kidney failure, unspecified; Z91.14 Patient's other noncompliance with medication regimen; Z68.41 Body mass index [BMI] 40.0-44.9, adult; Z71.3 Dietary counseling and surveillance; Z85.038 Personal history of other malignant neoplasm of large intestine; Z85.828 Personal history of other malignant neoplasm of skin
CPT/HCPCS: 36415; 71045; 71275; 80048; 80053; 84484; 85025; 85379; 85610; 87804; 93005; 93306; 93970; 94640; 96361; 96372; 96374; 96375; 99218; 99251; 99285; J7030; Q9957; Q9967; A4216; C8929; G0378; G0463

== ENCOUNTER → 2019-09-10 09:30 | Outpatient (CLI) | payer OTHER, SELFPAY ==
[2018-03-01 15:01] VITALS: BMI 40.2
[2019-09-06 14:58] VITALS: BMI 41.2
[2019-09-10 11:04] LABS: ALB/GLOB Ratio 0.8 RATIO (0.9-2.4); AST(SGOT) 20 U/L (15-37); Alanine Aminotransfer ALT/SGPT 24 U/L (13-56); Albumin, Serum 3.4 g/dL (3.2-5.0); Alkaline Phosphatase 85 U/L (45-117); Anion Gap 3 (5-15); BUN 20 mg/dL (7-18); BUN/Creat Ratio 18.2 RATIO (10-20); Chloride 102 mmol/L (98-107); Cholesterol 240 mg/dL (200); EST Glomerular Filtration Rate 51 mL/min (>60); Est Glom Filt Rate - Afr Amer 62 mL/min (>60); Globulin 4.5 g/dL (2.2-4.2); Glucose 95 mg/dL (74-106); High Density Lipoprotein 44 mg/dL; Potassium 3.9 mmol/L (3.5-5.1); Protein, Total 7.9 g/dL (6.4-8.2); Sodium Level 138 mmol/L (136-145); Thyroid Stim Hormone (TSH) 3.52 uIU/mL (0.358-3.74); Triglycerides 160 mg/dL; Very Low Density Lipoprotein 32 mg/dL (5-40)
[2019-09-10 11:05] LABS: Vitamin D,25 Hydroxy 30.5 ng/mL (29.95-100.01)
== END ==
PROVIDERS: Family Provider Family Medicine; PCP Family Medicine; Referring Provider Family Medicine; Visit Provider Family Medicine
DX: E55.9 Vitamin D deficiency, unspecified (principal); E03.9 Hypothyroidism, unspecified; E78.2 Mixed hyperlipidemia
CPT/HCPCS: 36415; 80053; 80061; 82306; 84443

== ENCOUNTER → 2019-12-19 08:59 | Outpatient (CLI) | payer OTHER, SELFPAY ==
[2019-12-19 08:59] VITALS: BMI 42.0
[2019-12-19 09:50] LABS: Hematocrit 42.7 % (37-47); Mean Corp Hgb Conc 32.8 g/dL (32-36); Mean Corpuscular Hgb 31.2 pg (27.0-32.0); Mean Corpuscular Volume 95.1 fL (81-99); Mean Platelet Vol. 10.3 fl (6.2-12.0); Platelet Count 270 K/mm3 (150-450); RBC Distribution Width CV 12.3 % (11.6-14.6); RBC Distribution Width SD 43.2 fl (35.1-43.9); Red Blood Count 4.49 M/mm3 (4.2-5.4); White Blood Count 5.9 K/mm3 (4.4-11.0)
[2019-12-19 09:51] LABS: ALB/GLOB Ratio 0.8 RATIO (0.9-2.4); AST(SGOT) 29 U/L (15-37); Alanine Aminotransfer ALT/SGPT 27 U/L (13-56); Albumin, Serum 3.7 g/dL (3.2-5.0); Alkaline Phosphatase 77 U/L (45-117); Anion Gap 2 (5-15); BUN 20 mg/dL (7-18); BUN/Creat Ratio 16.8 RATIO (10-20); Calcium,Total 9.1 mg/dL (8.5-10.1); Chloride 107 mmol/L (98-107); Creatinine, Serum 1.19 mg/dL (0.55-1.02); EST Glomerular Filtration Rate 47 mL/min (>60); Est Glom Filt Rate - Afr Amer 57 mL/min (>60); Globulin 4.4 g/dL (2.2-4.2); Glucose 113 mg/dL (74-106); Potassium 4.3 mmol/L (3.5-5.1); Protein, Total 8.1 g/dL (6.4-8.2); Sodium Level 140 mmol/L (136-145)
[2019-12-20 13:33] LABS: Carcinoembryonic Antigen 4.3 ng/mL (0.0-4.7)
== END ==
PROVIDERS: Surgery; PCP Family Medicine; Referring Provider Family Medicine; Visit Provider Family Medicine
DX: R10.9 Unspecified abdominal pain (principal); Z85.038 Personal history of other malignant neoplasm of large intestine
CPT/HCPCS: 36415; 80053; 82378; 85027

== ENCOUNTER → 2019-12-30 08:00 | Outpatient (CLI) | payer OTHER, SELFPAY ==
[2019-12-19 08:34] VITALS: BMI 41.2
[2019-12-19 08:59] VITALS: BMI 42.0
--- NOTE | 2019-12-30 08:08 | CT_ITS ---
STUDY: CT ABDOMEN AND PELVIS WITH CONTRAST REASON FOR EXAM: Female, 74 years old. SHARP PAINS LEFT SIDE ABD X2 MONTHS -- HX-COLON CA -- SURG HYST,GB,COLOSTOMY W/ REVERSAL RADIATION DOSAGE (If Supplied By Facility): CTDIvol = ( 18.46 ) mGy, DLP = ( 1251.89 ) mGycm TECHNIQUE: Transaxial images were obtained from the dome of the diaphragm to the symphysis pubis with oral contrast. Oral and amp; IV Readi-CAT and amp; 100mL Isovue-300 was administered. Sagittal and coronal images were reconstructed. Individualized dose optimization techniques were used for this CT. COMPARISON: None. FINDINGS: There are increased interstitial markings at the lung bases with areas of confluence suggestive of pulmonary scarring. Coronary artery calcifications. There is decreased attenuation of the liver consistent with steatosis. The patient is status post cholecystectomy. There is a 3.5 cm x 4.1 cm cyst in the posterior upper aspect of the spleen. Normal pancreas. Normal bilateral adrenal glands. Normal right kidney. Normal left kidney. There is a small hiatal hernia. Normal small intestine. Anastomosis seen in the region of the rectum. Surgical clips are also seen in the ileocecal region. There are surgical clips in the region of the appendix consistent with a prior appendectomy. There is diffuse atherosclerotic calcification of the abdominal aorta, without a demonstrated aneurysm. Mural thrombus is seen along the anterior left lateral wall of the distal abdominal aorta. Normal inferior vena cava. Normal retroperitoneum. Normal urinary bladder. There is evidence of a calcified fibroid uterus. Normal abdominal wall. There are degenerative changes of the visualized lumbar spine. Findings suggestive of hemangioma of the L2 vertebrae. CT/Abdomen/Pelvis WITH Contrast IMPRESSION: 3.5 cm x 4.17 m cyst in the posterior upper aspect of the spleen. Anastomosis seen in the region of the rectum as well as in the ileocecal region. Calcified fibroid uterus. Atherosclerotic calcification of the abdominal aorta with the mural thrombus along the anterior left lateral wall of the distal abdominal aorta. Findings suggestive for scarring at both lung bases. Electronically Signed: Landon Ayon, at 9:49 EDT , Service support ,
--- NOTE | 2019-12-30 08:08 | US_ITS ---
STUDY: SUPERFICIAL ULTRASOUND - RIGHT SIDED NECK MASS. REASON FOR EXAM: Female, 74 years old. MASS RIGHT NECK TECHNIQUE: A superficial ultrasound was performed with real-time and static harper-scale imaging. COMPARISON: None. FINDINGS: The abnormality was examined by ultrasound. There is a 1.9 cm x 1.3 cm x 0.6 cm benign-appearing lymph node at the palpable site. Adjacent to this, there is a 1.3 cm x 1.1 cm x 0.4 cm benign-appearing lymph node. US/Head/Neck Soft Tissue IMPRESSION: The palpable abnormality corresponds to 2 benign-appearing lymph nodes. Electronically Signed: Landon Ayon, at 15:35 EDT , Service support ,
== END ==
PROVIDERS: PCP Family Medicine; Referring Provider Surgery; Visit Provider Surgery
DX: R10.9 Unspecified abdominal pain (principal); R22.1 Localized swelling, mass and lump, neck; Z85.038 Personal history of other malignant neoplasm of large intestine
CPT/HCPCS: 74177; 76536; Q9967

== ENCOUNTER 2020-01-14 05:17 | Day surgery (SDC) | payer OTHER, SELFPAY ==
[2019-12-19 08:59] VITALS: BMI 42.0
[2020-01-13 12:12] LABS: Probe Check PASS; Specimen Processing Control PASS
[2020-01-14 05:35] VITALS: BP 149/105; PULSE 71; RESP 16; TEMP 36.6; O2SAT 100; BMI 40.7
--- NOTE | 2020-01-14 05:47 | HP.PCM_ITS ---
Problem List (1) History of colon cancer Status: Inactive (2) Abdominal pain Status: Acute Qualifiers: Abdominal location: left lower quadrant Qualified Code(s): R10.32 - Left lower quadrant pain History and Physical Date of Admission: 01/14/20 Intake Visit Reasons: Lump under jawbone right side Chief Complaint: right neck mass Keg Filler Required: No Is patient in pain?: No Allergies Penicillins Allergy (Verified 12/19/19 08:33) Hives hydrochlorothiazide Adverse Reaction (Severe, Verified 12/19/19 08:33) Dizziness/Lightheadedness meperidine HCl [From Demerol] Adverse Reaction (Verified 12/19/19 08:33) dizzy Medications levothyroxine 100 mcg tablet 100 mcg PO QDAY 02/28/18 [History Confirmed 12/18] apixaban 5 mg tablet 10 mg PO BID #72 tab 09/06/19 [Rx Confirmed 12/19/19] hydrochlorothiazide 12.5 mg tablet 12.5 mg PO DAILY 09/06/19 [History Confirmed 12/19/19] Is last menstrual period known: No Post menopausal: Yes Patient : No PFSH Medical History (Updated 12/19/19 @ 08:[address] 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 Cruzito Corrales MD) History of ventral hernia repair (Acute) History of colonoscopy (Acute ~2016) History of hysterectomy (Acute) Status post biopsy of thyroid gland (Acute) History of cholecystectomy (Resolved) History of colectomy (Resolved) History of hemorrhoidectomy (Resolved) History of hernia repair (Resolved) History of thyroidectomy (Resolved) Family History Mother CAD (coronary artery disease) Myocardial infarction, Onset Age: 66 Hypertension Sister CAD (coronary artery disease) Myocardial infarction, Onset Age: 63 Brother Heart disease History of implantable cardioverter-defibrillator (ICD) placement Grandmother Hypertension Social History (Updated 12/19/19 @ 08:[address] Cruzito Corrales MD) Smoking Status: Never smoker alcohol intake: never HPI HPI HPI: RADHA ROMANO, is a 74 F who presents to the office today for who presents on her own for evaluation regarding a nonspecific right neck mass. She is not sure how long it has been there. During the interview however it became apparent that she is also been having some intermittent severe left mid abdominal pain. Her most recent colonoscopy for colon cancer was performed January 15, 2016. There was evidence of a prior functional end-to-end ileocolonic anastomosis in the ascending colon and there was evidence of a previous end-to-end colocolonic anastomosis in the distal sigmoid colon. The patient has had 2 separate colon cancer resections in the past. A 5 mm polyp was seen in the mid transverse colon at the time of her most recent colonoscopy. She does not currently see hematology oncology. She denies bright red blood per rectum or melena. No fever or chills or sweats. No unexpected weight loss. She does not recall a recent CEA level. HPI HPI HPI: RADHA ROMANO, is a 74 F who presents to the office today for ROS General General: Yes fatigue and colon cancer; no weight change, appetite, breast cancer or weakness Additional Details: RECTAL CA HEENT HEENT: No difficulty swallowing, eye injury, eye surgery, swollen glands or hoarseness Endo Endocrine: Yes thyroid disease; no diabetes mellitus, thyroid cancer, Hair loss, heat intolerance or cold intolerance Musc Musculoskeletal: Yes arthritis; no back problems, rheumatoid arthritis, gout or joint pain Cardio Cardiovascular: No murmur, pacemaker, heart disease, atrial fibrillation, high blood pressure, heart attack, heart stent, palpitations, shortness of breat with exertion or chest pain Resp Respiratory: No shortness of breath, No sleep apnea, No cough, No COPD, No asthma, No emphysema, No wheezing Additional Details: PE Gastro Gastrointestinal: No abdominal pain, No nausea or vomiting, No diarrhea, No constipation, No blood in stool, No acid reflux, No hemorrhoids, No ulcers, No gallbladder problem, No black,tarry stools Ian Hematologic: Yes blood thinners, No blood disorders, No bleeding, No anemia, No blood clots Neuro Neurologic: No weakness Exam Const General: cooperative, healthy appearing, comfortable, no acute distress Nutritional Appearance: obese morbidly obese Orientation: alert, awake HENMT Head: normal to inspection Neck Other: Right anterior superior neck at the site of the patient description is a nondescript rubbery slightly mobile mass. I cannot decipher whether this is submandibular gland or other. It is actually quite difficult to palpate. The right side however distinctly different and more full than the left. No other cervical adenopathy appreciable. Carotids 3+ no bruits Resp Effort & Inspection: normal respiratory effort Auscultation: clear to auscultation bilaterally Cardio Rate: regular rate Rhythm: regular rhythm Heart Sounds: no murmurs GI Other: Soft, well-healed epigastric incision and stomal incision and well-healed ventral incisional hernia repairs. Fullness noted in the left mid abdomen with slight tenderness to palpation. No rebound or guarding. Bowel sounds present not remarkable Neuro General: alert, awake Cognition: normal cognition Extrem General: no calf tenderness Psych Affect: normal affect Assessment & Plan Problems 1. Neck mass R22.1 2. History of colon cancer Z85.038 3. Left upper quadrant abdominal pain R10.12 4. History of ventral hernia repair Z98.890; Z87.19 Plan Regarding the patient's presentation I recommend a right neck ultrasound to try to assist with evaluation of her palpable neck mass. As noted on clinical exam it is indistinct to me and further definition is recommended Regarding her left mid abdominal pain and fullness on exam and history of colon cancer I recommend a CMP and a CBC and a CEA and a abdominal pelvic CT scan. She is clearly at higher risk for recurrent cancer as she has had 2 separate resections a right colectomy and a sigmoid colectomy. Her most recent colonoscopy was December 2015 and I recommend a colonoscopy with possible biopsy or polypectomy as indicated. She is aware of the technique, benefit, risk, alternatives. She is aware of the Covid-19 pandemic. [facility] menstruation suggest a low local incidence. We will schedule and proceed as noted. Cc: Dr. Jerel Corrales M.D., F.A.C.S. Orders Orders: Colonoscopy Today Comprehensive Metabolic Profil Today R10.9, Z85.038 Abdomen/Pelvis WITH Contrast Today R10.9, Z85.038 CBC-Complete Blood Cnt No Diff Today R10.9, Z85.038 Carcinoembryonic Antigen Today Z85.038 Head/Neck Soft Tissue Today R22.1 Medications Discontinued: losartan Discontinued Reason: Pt no longer taking 50 mg PO DAILY 90 tabs 5RF Coding Level of Care Code Off vis,est,level 3 Diagnoses Neck mass R22.1 History of colon cancer Z85.038 Left upper quadrant abdominal pain R10.12 ??Abdominal location: left upper quadrant History of ventral hernia repair Z98.890; Z87.19 12/19/19 0847 <Electronically signed by Cruzito chavez MD> Date _ Cruzito Corrales MD The patient had an outpatient CT scan the abdomen pelvis. This showed surgical changes of the rectosigmoid and right colon. There was a splenic cyst. No gross findings of acute disease. She had laboratory obtained this also was not remarkable. The palpable area of the right neck on ultrasound was felt to correlate to benign lymph nodes. The patient otherwise presents today for colonoscopy. She has had a history of 2 separate colon cancer as well as colon polyps. Procedure Criteria Procedure Type: Elective COVID Risk Discussion: The surgeon/proceduralist and patient have discussed in detail the risk of exposure to and/or potential harm posed by the COVID-19 virus with having a surgery/procedure at this time versus the risk of delaying the surgery/procedure. It is not possible to know either the risk of delaying the surgery or procedure or chance of getting an infection with perfect accuracy, but a joint decision was made between the patient and the surgeon/proceduralist to proceed at this time with the scheduled surgery/procedure as indicated on the consent form.
[2020-01-14] MEDS: Lactated Ringers 1,000 ML 100 ML IV (06:14)
[2020-01-14 06:45] VITALS: BP 146/88; BP 149/105; PULSE 58; RESP 16; TEMP 36.7; O2SAT 98
--- NOTE | 2020-01-14 06:48 | OP.COLON_ITS ---
Patient Name: Aliya Covarrubias Procedure Date: 01/14/2020 6:05 AM Date of : 1945 Age: 74 Procedure: Colonoscopy Indications: High risk colon cancer surveillance: Personal history of colonic polyps, High risk colon cancer surveillance: Personal history of colon cancer Providers: Cruzito Corrales MD Referring MD: Jerel Resendez Medicines: See the Anesthesia note for documentation of the administered medications Patient Profile: Last Colonoscopy: December 2015. Complications: No immediate complications. Procedure: Pre-Anesthesia Assessment: - Prior to the procedure, a History and Physical was performed, and patient medications and allergies were reviewed. The patient's tolerance of previous anesthesia was also reviewed. The risks and benefits of the procedure and the sedation options and risks were discussed with the patient. All questions were answered, and informed consent was obtained. Prior Anticoagulants: The patient has taken no previous anticoagulant or antiplatelet agents. ASA Grade Assessment: II - A patient with mild systemic disease. After reviewing the risks and benefits, the patient was deemed in satisfactory condition to undergo the procedure. After I obtained informed consent, the scope was passed under direct vision. Throughout the procedure, the patient's blood pressure, pulse, and oxygen saturations were monitored continuously. The adult colonoscope was introduced through the anus and advanced to the ileocolonic anastomosis. The colonoscopy was performed without difficulty. The patient tolerated the procedure well. The quality of the bowel preparation was good. Ileocolonic anastomosis were photographed. Scope In: 6:34:06 AM Scope Withdrawal Time 0 hours 5 minutes 27 seconds Scope Out: 6:41:45 AM Total Procedure Duration Time 0 hours 7 minutes 39 seconds Findings: The digital rectal exam findings include non-thrombosed external hemorrhoids, non-thrombosed internal hemorrhoids and internal hemorrhoids that prolapse with straining, but spontaneously regress to the resting position (Grade II). There was evidence of a prior functional end-to-end ileo-colonic anastomosis in the proximal transverse colon. This was patent and was characterized by healthy appearing mucosa. There was evidence of a prior end-to-end colo-colonic anastomosis in the distal sigmoid colon. This was patent and was characterized by healthy appearing mucosa. The exam was otherwise without abnormality. Impression: - Non-thrombosed external hemorrhoids, non-thrombosed internal hemorrhoids and internal hemorrhoids that prolapse with straining, but spontaneously regress to the resting position (Grade II) found on digital rectal exam. - Patent functional end-to-end ileo-colonic anastomosis, characterized by healthy appearing mucosa. - Patent end-to-end colo-colonic anastomosis, characterized by healthy appearing mucosa. - The examination was otherwise normal. - No specimens collected. Recommendation: - Discharge patient to home. - Resume previous diet. - Continue present medications. - Repeat colonoscopy in 5 years for surveillance. Procedure Code(s): --- Professional --- 33690, Colonoscopy, flexible; diagnostic, including collection of specimen(s) by brushing or washing, when performed (separate procedure) Diagnosis Code(s): --- Professional --- Z86.010, Personal history of colonic polyps Z85.038, Personal history of other malignant neoplasm of large intestine K64.1, Second degree hemorrhoids K64.4, Residual hemorrhoidal skin tags Z98.0, Intestinal bypass and anastomosis status CPT copyright 2017 [employer]. All rights reserved. The codes documented in this report are preliminary and upon medical office assistant instructor review may be revised to meet current compliance requirements. Cruzito Corrales MD 01/14/2020 6:48:05 AM This report has been signed electronically. Number of Addenda: 0 Note Initiated On: 01/14/2020 6:05 AM
--- NOTE | 2020-01-14 06:48 | OP.CCLET_ITS ---
01/16/2020 Jerel Resendez [address] [place] [address] Re : Colonoscopy procedure for Aliya Covarrubias Dear Dr. Resendez This procedure was performed on Tuesday, January 14, 2020. My impressions and recommendations are as follows: Impressions : - Non-thrombosed external hemorrhoids, non-thrombosed internal hemorrhoids and internal hemorrhoids that prolapse with straining, but spontaneously regress to the resting position (Grade II) found on digital rectal exam. - Patent functional end-to-end ileo-colonic anastomosis, characterized by healthy appearing mucosa. - Patent end-to-end colo-colonic anastomosis, characterized by healthy appearing mucosa. - The examination was otherwise normal. - No specimens collected. Recommendations : - Discharge patient to home. - Resume previous diet. - Continue present medications. - Repeat colonoscopy in 5 years for surveillance. My findings are described in the full procedure note, which is enclosed. If I can be of further assistance, please feel free to contact me at Doctor phone number(s): Work: . Sincerely, Cruzito Corrales MD 01/14/2020 6:48:05 AM This report has been signed electronically.
[2020-01-14 06:50] VITALS: BP 148/80; BP 149/105; PULSE 60; RESP 16; O2SAT 100
[2020-01-14 06:55] VITALS: BP 149/105; BP 157/79; PULSE 58; RESP 16; O2SAT 94
[2020-01-14 07:00] VITALS: BP 149/105; BP 167/91; PULSE 54; RESP 16; TEMP 36.2; O2SAT 99
[2020-01-14 07:24] VITALS: BP 149/105
== END 2020-01-14 07:26 | disposition home or self-care (01) ==
LOC: EN 05:18 → AC 05:18
PROVIDERS: Physician Assistant; PCP Family Medicine; Referring Provider Family Medicine; Visit Provider Surgery
PROC: 0DJD8ZZ Inspection of Lower Intestinal Tract, Via Natural or Artificial Opening Endoscopic (ICD-10-PCS; CPT 45378; principal; 2020-01-14 06:25)
DX: Z12.11 Encounter for screening for malignant neoplasm of colon (principal); Z11.59 Encounter for screening for other viral diseases; K64.4 Residual hemorrhoidal skin tags; K64.1 Second degree hemorrhoids; R10.12 Left upper quadrant pain; R10.32 Left lower quadrant pain; I10 Essential (primary) hypertension; E03.9 Hypothyroidism, unspecified; Z98.0 Intestinal bypass and anastomosis status; E66.01 Morbid (severe) obesity due to excess calories; Z68.41 Body mass index [BMI] 40.0-44.9, adult; Z78.0 Asymptomatic menopausal state; Z79.01 Long term (current) use of anticoagulants; Z79.899 Other long term (current) drug therapy; Z85.038 Personal history of other malignant neoplasm of large intestine; Z86.711 Personal history of pulmonary embolism; Z86.010 Personal history of colon polyps
CPT/HCPCS: 45378; 87635; G2023; J7120; J2405; U0003

== ENCOUNTER 2021-03-02 16:52 | Emergency (ER) | payer MEDICARE, SELFPAY ==
[2021-03-02 17:05] VITALS: BP 105/93; PULSE 93; RESP 18; TEMP 37.7; O2SAT 97; BMI 41.8
--- NOTE | 2021-03-02 17:18 | EDS_ITS ---
HPI History of Present Illness Chief Complaint: Edema Narrative Narrative: 75-year-old female presenting with left arm swelling. Patient states this started yesterday. Patient states she was ill and had a cough, cold, fevers, chills in the beginning of the month but the rest of her family. They were all diagnosed with COVID-19. Everybody has subsequently recovered from those symptoms and the patient herself now complains of left arm swelling without pain. She denies chest pain, palpitations, shortness of breath. [facility] Medical History Abdominal pain Abnormal EKG Essential hypertension History of colon cancer Hypertension Hypothyroidism Malignant neoplasm of rectum, rectosigmoid junction and anus Neck mass Pulmonary embolism (08/08/19) Skin lesion of face Squamous cell carcinoma, face (04/2019) Syncope (08/08/19) Home Medications levothyroxine 100 mcg tablet 125 mcg PO QDAY 02/28/18 [History Last Taken 08/07/19 07:00] hydrochlorothiazide 25 mg PO DAILY 01/10/20 [History Last Taken Unknown] chlorthalidone 25 mg PO DAILY 03/02/21 [History Last Taken Unknown] furosemide 20 mg PO DAILY 03/02/21 [History Last Taken Unknown] losartan 50 mg PO DAILY 03/02/21 [History Last Taken Unknown] Allergy/AdvReac Type Severity Reaction Status Date / Time Penicillins Allergy Hives Verified 03/02/21 17:08 meperidine HCl [From Demerol] AdvReac dizzy Verified 03/02/21 17:08 Family History Mother CAD (coronary artery disease) Myocardial infarction, Onset Age: 66 Hypertension Sister CAD (coronary artery disease) Myocardial infarction, Onset Age: 63 Brother Heart disease History of implantable cardioverter-defibrillator (ICD) placement Grandmother Hypertension Surgical History History of cholecystectomy History of colectomy History of colonoscopy (~2015) History of hemorrhoidectomy History of hernia repair History of hysterectomy History of thyroidectomy History of ventral hernia repair Status post biopsy of thyroid gland Social History Smoking Status: Never smoker alcohol intake: never ROS ROS ED Constitutional Constitutional ED: Denies chills or fever(s) Eyes Eyes: Denies blurry vision or change in vision ENT ENT ED: Denies ear pain, rhinorrhea or sore throat Cardiovascular Cardiovascular: Denies chest pain, palpitations or racing heartbeat Respiratory/Chest Respiratory/Chest: Denies cough, dyspnea or sputum Gastrointestinal Gastrointestinal: Denies abdominal pain, constipation, diarrhea or vomiting Genitourinary Genitourinary ED: Denies dysuria, hematuria or urinary frequency Musculoskeletal Musculoskeletal: Reports other Details: Left arm swelling from the forearm distally. ; Denies arthralgias, myalgias or neck pain Integumentary Denies abscess, Abrasions or rash Neurologic Neurologic: Denies headache(s), paresthesias or weakness Psychiatric Psychiatric: Denies anxiety, depression, suicidal ideation or suicidal thoughts Endocrine Endocrinology: Denies polydipsia or polyuria EXAM Physical Exam Const Vital Signs: 03/02/21 17:05 Temperature 100 F H Temperature Source Oral Pulse Rate 93 Respiratory Rate 18 Blood Pressure 105/93 H Blood Pressure Mean 97 Pulse Ox 97 Oxygen Delivery Method Room Air Positive obese General Appearance ED: NAD Nutritional Appearance: obese HEENT Reports moist mucous membranes Negative for trauma Eyes PERRL and EOMs intact bilaterally General Eye ED: Negative for pale conjunctiva or scleral icterus Resp normal respiratory effort and clear to auscultation bilaterally Cardio regular rate and regular rhythm Extremity Extremity Narrative: Swelling of the left mid forearm distally into the left wrist and left hand. Radial pulse 2+ on the left. Please cap refill to all 5 fingers. No bony tenderness. No crepitance. Neuro oriented x3 and CN's II-XII intact bilaterally Sensorium / Orientation: alert Skin no rashes or lesions noted and no wounds MDM MDM MDM Narrative Medical decision making narrative: Patient presenting for DVT study given her left arm swelling and recent history of Covid which started about 3 to 4 weeks ago. Patient was tested last week and was positive. She does not have any respiratory complaints or chest pain at this time. Patient did arrive after 5:00 and unfortunately we do not have ultrasound available for the upper extremities. Patient is stable to be discharged overnight to follow-up for outpatient ultrasound tomorrow. This was ordered in the computer system and she was given paperwork to set an appointment. Patient is given return precautions. Impression: 1. Left arm swelling Discharge Plan Triage Chief Complaint: Edema ED Provider: Kenan Ross Dx/Rx/DC Orders Prescriptions: No Action levothyroxine 100 mcg tablet 125 mcg PO QDAY RF: 0 hydrochlorothiazide 25 MG tablet 25 mg PO DAILY RF: 0 losartan 50 mg tablet 50 mg PO DAILY RF: 0 chlorthalidone 25 mg tablet 25 mg PO DAILY RF: 0 furosemide 20 mg tablet 20 mg PO DAILY RF: 0 Primary Care Provider: Jerel Resendez Referrals: Jerel Resendez MD [Primary Care Provider] - Activity Restrictions/Additional Instructions: He presented today with left arm swelling. Unfortunately we do not have ultrasound coverage to look at the left upper extremity for DVT or superficial blood clot. This will be ordered and you can have this done tomorrow on an outpatient basis. I do not currently think you need to be on blood thinners overnight. Please follow-up tomorrow to have this study done. Disposition Disposition: Home, Self Care
[2021-03-02 17:32] VITALS: RESP 18; TEMP 37.4
== END 2021-03-02 17:33 | disposition home or self-care (01) ==
LOC: ED 17:24
PROVIDERS: Emergency Provider Student in an Organized Health Care Education/Training Program; PCP Family Medicine
DX: M79.89 Other specified soft tissue disorders (principal); R60.9 Edema, unspecified; I10 Essential (primary) hypertension; E03.9 Hypothyroidism, unspecified; E66.9 Obesity, unspecified; Z79.890 Hormone replacement therapy; Z79.899 Other long term (current) drug therapy; Z86.16 Personal history of COVID-19; Z85.038 Personal history of other malignant neoplasm of large intestine
CPT/HCPCS: 99282

== ENCOUNTER → 2021-03-03 14:59 | Outpatient (CLI) | payer MEDICARE, SELFPAY ==
[2021-03-02 17:05] VITALS: BMI 41.8
--- NOTE | 2021-03-03 15:04 | VDUE_ITS ---
Reason For Study: SWELLING Left Proximal Left jugular vein is spontaneous, widely patent, phasic, with no intraluminal echogenicity noted. Left subclavian vein is spontaneous, widely patent, phasic, with no intraluminal echogenicity noted. Left Arm Left axillary vein is spontaneous, patent, phasic, competent, compressible and demonstrates augmentation. Left brachial vein is compressible. Left cephalic vein is compressible. Left Basilic V is partially compressible in the distal forearm with Rouleaux flow noted throughout the vein. Left Lower Arm Left radial vein is compressible. Left ulnar vein is compressible. VL/Venous Duplex US, Unilateral Interpretation Summary No evidence for acute deep venous thrombosis[left] upper extremity with patent and compressible cephalic and basilic veins. Sluggish flow and only partial compressibility of t he left basilic vein in the distal forearm suggestive of possible superficial thrombophlebitis. Clin ical correlation would be appropriate Patent and compressible left cephalic vein Ordering Physician: Kenan Ross Referring Physician: FRANCIS BOTELLO Performed By: Get NOLAN RVT, Carrie and Student ?
== END ==
PROVIDERS: PCP Family Medicine; Referring Provider Student in an Organized Health Care Education/Training Program; Visit Provider Student in an Organized Health Care Education/Training Program
DX: M79.89 Other specified soft tissue disorders (principal)
CPT/HCPCS: 93971

== ENCOUNTER 2022-09-24 10:55 | Emergency (ER) | payer MEDICARE, SELFPAY ==
[2022-09-24 10:56] VITALS: BP 166/96; PULSE 74; RESP 20; TEMP 37; O2SAT 97; BMI 41.1
--- NOTE | 2022-09-24 10:58 | EDS_ITS ---
HPI History of Present Illness Chief Complaint: Lower Extremity Injury Narrative Narrative: Patient is a 77-year-old female with history of hypothyroidism, anxiety who presents to the emergency department with right hip, right groin pain. Per the family, the patient has been having pain for multiple months. However over the last 2 months, this pain has been ongoing. Patient states she woke up today and had difficulty getting out of bed secondary to the pain in her right hip. She denies any fall, she denies any numbness or tingling, denies any trauma. Patient usually takes ibuprofen which helps however today it only slightly helped PFSH 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) Syncope (08/08/19) Home Medications levothyroxine 100 mcg tablet 125 mcg PO QDAY thyroid 02/28/18 [History Last Taken 08/07/19 07:00] hydrochlorothiazide 25 mg tablet 25 mg PO DAILY 01/10/20 [History Last Taken Unknown] chlorthalidone 25 mg tablet 25 mg PO DAILY 03/02/21 [History Last Taken Unknown] furosemide 20 mg tablet 20 mg PO DAILY 03/02/21 [History Last Taken Unknown] losartan 50 mg tablet 50 mg PO DAILY 03/02/21 [History Last Taken Unknown] hydrocodone-acetaminophen 5-325mg 5mg-325mg 1 tab PO Q4H PRN PRN Pain 3 days #10 TABLETS 09/24/22 [Rx Last Taken Unknown] Allergy/AdvReac Type Severity Reaction Status Date / Time Penicillins Allergy Hives Verified 09/24/22 12:34 meperidine HCl [From Demerol] AdvReac dizzy Verified 09/24/22 12:34 Family History Mother CAD (coronary artery disease) Myocardial infarction, Onset Age: 66 Hypertension Sister CAD (coronary artery disease) Myocardial infarction, Onset Age: 63 Brother Heart disease History of implantable cardioverter-defibrillator (ICD) placement Grandmother Hypertension Surgical History History of cholecystectomy History of colectomy History of colonoscopy (~2016) History of hemorrhoidectomy History of hernia repair History of hysterectomy History of thyroidectomy History of ventral hernia repair Status post biopsy of thyroid gland Social History Smoking Status: Never smoker alcohol intake: never ROS ROS ED ROS Narrative Constitutional: Negative for fever, chills, weight loss, weakness Eyes: Negative for vision loss, vision change, double vision ENT: Negative for any sore throat, ear pain, congestion Cardiovascular: Negative for any chest pain, tightness, palpitations Respiratory: Negative for any cough, sputum production, hemoptysis, dyspnea, dyspnea on exertion, orthopnea Gastrointestinal: Negative for any abdominal pain, nausea, vomiting, diarrhea, constipation, blood in stool, blood in vomit : Negative for any urinary frequency, dysuria, retention, blood in urine Muscle skeletal: Negative for any muscle joint pain, stiffness, myalgias, arthralgias, neck pain, back pain. Positive for right hip pain, right groin pain Neurological: Negative for any headache, syncope, numbness or tingling, dizzi ness Skin: Negative for any rashes, lumps, itching, abrasions, lacerations Psychiatric: Negative for any depression, anxiety, stress, suicidal ideation, homicidal ideation Hematologic: Negative for any easy bruising, excessive bruising, easy bleeding Allergies: Negative for any eczema, hives, rash EXAM Physical Exam Narrative Exam Narrative: Vital signs reviewed. Extremities: No peripheral edema, no signs of gross trauma or deformity. Active full range of motion of all extremities. Patient has an intact extensor mechanism. Patient's +2 pedal pulse. Patient had no weakness to the right leg. On passive range of motion, patient worsening pain on abduction. Patient did have some pain to the groin on palpation. The physical examination consistent with muscle skeletal pain. There is no evidence suspect any vascular, neurological deficit. Neuro: Cranial nerves II through XII intact, no focal neurological deficits. Skin: Clean dry and intact with no rash, purpura, petechiae, vesicles or pustules. Backs/flank: No CVA tenderness, no midline spinal tenderness, no deformity. Psych: Normal mood and affect. No SI, HI or acute psychosis. Const Vital Signs: 09/24/22 10:56 Temperature 98.6 F Temperature Source Temporal Pulse Rate 74 Respiratory Rate 20 H Blood Pressure 166/96 H Blood Pressure Mean 119 Pulse Ox 97 Oxygen Delivery Method Room Air MDM MDM Radiography Diagnostic Testing: Clinical Impression(s) from Imaging Studies Hip/Pelvis X-Ray 09/24/22 11:47 IMPRESSION: Age consistent degenerative changes, no acute findings Electronically Signed: Bowen Gallardo MD at 12:09 EST Reading Location ID and State: [address] [place] [address] , Service support , Treatment and Re-Evaluation Narrative: All radiologic examinations were read, reviewed by the emergency department attending. From these reads, a plan of care will be put in place. Patient appears generally well, patient appears nontoxic, vital signs are stable. Patient presents to the emergency department with right hip pain has been ongoing for multiple months however much worse today. Patient denies any trauma. Patient's physical examination is consistent with muscle skeletal pain. X-ray was completed of the right hip, this showed age consistent degenerative changes however there is no acute findings. Differential included stress fracture, groin strain, arthritis. Patient be diagnosed with right hip strain, arthritis. She will be discharged. She will be given Nicolaus for home. She is instructed to ice, perform gentle stretching. I will provide her with orthopedics for further evaluation. At this time there is no evidence of any fracture. Patient at this time stable for discharge she will use a walker at home. She will given Nicolaus for home. Both her son and daughter were given return precautions. Patient stable for discharge. Discharge Plan Triage Chief Complaint: Lower Extremity Injury ED Midlevel Provider: Robby Erickson ED Provider: John Aponte Dx/Rx/DC Orders Clinical Impression: Chronic hip pain, Hip strain, Arthritis Instructions: Arthritis: Exercise, ED Hip Strain, ED Osteoarthritis Prescriptions: New hydrocodone-acetaminophen 5-325 mg tablet 1 tab PO Q4H PRN PRN (Reason: Pain) 3 Days Qty: 10 0RF No Action levothyroxine 100 mcg tablet 125 mcg PO QDAY hydrochlorothiazide 25 MG tablet 25 mg PO DAILY losartan 50 mg tablet 50 mg PO DAILY Label Comments: TAKE 1 TABLET BY MOUTH EVERY DAY chlorthalidone 25 mg tablet 25 mg PO DAILY Label Comments: TAKE 1 TABLET BY MOUTH EVERY DAY furosemide 20 mg tablet 20 mg PO DAILY Label Comments: TAKE 1 TABLET BY MOUTH EVERY DAY Primary Care Provider: Jerel Resendez Referrals: Jerel Resendez MD [Primary Care Provider] - Joel Holbrook DO [Med Staff - Active Staff] - Activity Restrictions/Additional Instructions: Follow-up with orthopedics. Instructed to get plan of exercise. Use Nicolaus for severe pain continue to use ibuprofen Disposition Disposition: Home, Self Care
--- NOTE | 2022-09-24 11:47 | RAD_ITS ---
STUDY: X-RAY - PELVIS AND RIGHT HIP REASON FOR EXAM: Female, 77 years old. Hip and pelvic pain TECHNIQUE: 3 views of the pelvis and hip. COMPARISON: None. FINDINGS: There is a non-specific bowel gas pattern. Normal visualized soft tissue structures. There is diffuse demineralization of the osseous structures. There is narrowing with cortical sclerosis and osteophyte formation of the sacroiliac joint consistent with degenerative osteoarthritic changes. Normal bilateral superior and inferior pubic rami. Normal pubic symphysis. Normal bilateral ischial tuberosities. Normal visualized femoral head. Normal acetabulum. There is moderate articular joint space narrowing of the hip. Similar arthritic changes noted in the left hip. RAD/HIP, UNI W/ Pelvis 2-3 Views IMPRESSION: Age consistent degenerative changes, no acute findings Electronically Signed: Bowen Gallardo MD at 12:09 EST ,
[2022-09-24 13:01] VITALS: PULSE 55; RESP 18; O2SAT 95
== END 2022-09-24 13:02 | disposition home or self-care (01) ==
PROVIDERS: Emergency Provider Emergency Medicine; PCP Family Medicine; Visit Provider Emergency Medicine
DX: S73.101A Unspecified sprain of right hip, initial encounter (principal); I10 Essential (primary) hypertension; M16.11 Unilateral primary osteoarthritis, right hip; G89.29 Other chronic pain; X58.XXXA Exposure to other specified factors, initial encounter
CPT/HCPCS: 73502; 99282